=== PATIENT | male | born 1970 | race Hispanic/Latino ===

== ENCOUNTER 2021-10-26 10:30 | Emergency (ER) | payer MEDICAID, SELFPAY ==
[2021-10-26 10:31] VITALS: BP 118/74; PULSE 94; RESP 16; TEMP 35.8; O2SAT 93; BMI 26.6
--- NOTE | 2021-10-26 10:45 | EDS_ITS ---
HPI History of Present Illness Chief Complaint: General Illness Informant: patient Onset/Context/Timing Onset: Yesterday Narrative Narrative: Patient presents requesting COVID test. He states he started feeling ill yesterday including sneezing and congestion. His sister who he lives with tested positive for COVID today. PFSH PFSH Medical History no medical history no medical history Home Medications NK 10/26/21 [History Last Taken Unknown] Allergy/AdvReac Type Severity Reaction Status Date / Time Penicillins [PCN] Allergy Other Verified 10/26/21 10:31 Surgical History no surgical history Social History Smoking Status: Never smoker ROS ROS ED Constitutional Constitutional ED: Denies chills or fever(s) Eyes Eyes: Denies change in vision ENT ENT ED: Reports rhinorrhea and other Details: Congestion ; Denies sore throat Cardiovascular Cardiovascular: Denies chest pain Respiratory/Chest Respiratory/Chest: Reports cough; Denies dyspnea Gastrointestinal Gastrointestinal: Denies abdominal pain, diarrhea, nausea or vomiting Genitourinary Genitourinary ED: Denies dysuria Musculoskeletal Musculoskeletal: Denies back pain Integumentary Denies rash Neurologic Neurologic: Reports headache(s); Denies weakness Allergic/Immunologic Allergic/Immunologic ED: Denies urticaria EXAM Physical Exam Const Vital Signs: 10/26/21 10:31 10/26/21 10:56 Temperature 96.5 F L Temperature Source Temporal Pulse Rate 94 Respiratory Rate 16 Respiratory Effort Normal Non-Labored Respiratory Pattern Normal Blood Pressure 118/74 Blood Pressure Mean 88 Pulse Ox 93 Oxygen Delivery Method Room Air Positive well nourished and well developed General Appearance ED: well developed HEENT Reports normocephalic and head/scalp atraumatic Eyes PERRL and EOMs intact bilaterally Neck supple Chest Wall inspection of chest normal and palpation of chest normal Resp normal respiratory effort and clear to auscultation bilaterally Cardio regular rate and regular rhythm GI normal to inspection, nondistended, normoactive bowel sounds and non-tender Palpation: soft Back/Spine no CVA tenderness Extremity normal to inspection Neuro oriented x3 and no sensory deficits noted Sensorium / Orientation: alert Motor Exam: strength 5/5 throughout Psych mental status grossly normal Skin no rashes or lesions noted MDM MDM MDM Narrative Medical decision making narrative: Rapid COVID test obtained. Lab Data Labs: Rapid COVID: Positive Treatment and Re-Evaluation Comments:: Patient's COVID test is positive. He is currently on day 2 of symptoms. I did discuss monoclonal antibody treatment with him and he is interested in this. Order will be sent. Otherwise he is to continue supportive care. Return instructions are provided. Symptom onset occurred: 10/25/2021 Positive COVID-19 test occurred: 10/26/2021 The FDA has authorized the emergency use of monoclonal antibody treatment (bamlanivimab/etesevimab or casirivimab/imdevimab) for mild to moderate COVID-19 in adults and pediatric patients with positive results of direct SARS?Cov?2 viral testing ages 12 and older, at least 40 kg, who are at high risk for p rogressing to severe COVID-19 and or hospitalization. The significant known and potential risks (allergic reactions, worsening of symptoms after treatment, or side effects from injection including brief pain, bleeding, bruising of the skin, soreness, swelling, possible infection at the infusion site) and benefits (decrease chance of progression to severe COVID-19) of a monoclonal antibody infusion, and the extent to which such potential risks and benefits are unknown. Note that worsening symptoms after treatment may occur but it is unknown whether these symptoms are related to treatment or are due to the progression of COVID-19. Worsening symptoms may include: fever, difficulty breathing, rapid or slow heart rate, tiredness, weakness or confusion. If these symptoms occur, patients are encouraged to seek immediate medical attention. These treatments are still being studied, all possible side effects may not be listed or known at this time. Patients treated with monoclonal antibody infusion should continue to self- isolate and use infection control measures (such as wear mask, isolate, social distance, avoid sharing personal items, clean and disinfect high touch surfaces, and frequent handwashing) according to the CDC guidelines. The fact sheet for patients, parents and caregivers will be provided prior to the administration of the medication. No drugs are approved by the FDA at this time to treat outpatients with mild or moderate symptoms of COVID-19. In addition to IV monoclonal antibodies, there are oral medications that have received authorization from the FDA to treat [id number] COVID-19 in patients at high risk for progression to severe COVID-19. These medications may not be appropriate for all patients and available drug supply may be limited. However, these oral medications may be more effective against the omicron variant. The following information was communicated to the patient or caregiver: Monoclonal antibody infusion for COVID-19 is not an FDA approved drug. The FDA has authorized the emergency use of monoclonal antibody therapy. The patient had the option to refuse or accept treatment with monoclonal antibody therapy. The patient was informed that the number of people treated with monoclonal antibody therapy at this time is small. The potential benefits and the potential risks of monoclonal antibody therapy are not fully known. Potential benefits of monoclonal antibody include a reduced risk of progressing to severe COVID-19 infection. Potential risks or side effects of monoclonal antibody therapy include allergic reactions, side effects from injection including brief pain, bleeding, bruising of the skin, soreness, swelling, possible infection at the infusion site and worsening of symptoms. Due to the changes in the virus that causes COVID-19, some monoclonal antibody treatments may not be effective for all forms of the virus (known as variants). This includes the omicron variant. The patient stated understanding of this information communicated and wished to proceed with monoclonal antibody infusion therapy. Current symptoms include: Shortness of breath, cough (productive versus nonproductive), fever, headache, nausea/vomiting, body aches, chills, general malaise, loss of taste or smell, sneezing, nasal congestion. Discharge Plan Triage Chief Complaint: General Illness ED Provider: Claudine Winkler Dx/Rx/DC Orders Clinical Impression: COVID-19 Instructions: Coronavirus Disease 2019 (COVID-19): Overview, Coronavirus Disease 2019 (COVID-19): Caring for Yourself or Others Prescriptions: No Action NK RF: 0 Stand Alone Forms: ED Work / School Excuse, Monoclonal Antibody Referral Primary Care Provider: Care Physician,No Primary Referrals: Jose Rivera DO [STAFF PHYSICIAN] - 1-2 Weeks Care Physician,No Primary [Primary Care Provider] - Disposition Disposition: Home, Self Care
[2021-10-26 11:37] VITALS: RESP 18; O2SAT 95
== END 2021-10-26 11:37 | disposition home or self-care (01) ==
PROVIDERS: Emergency Provider Emergency Medicine; Visit Provider Emergency Medicine
DX: U07.1 COVID-19 (principal)
CPT/HCPCS: 87426; 99282

== ENCOUNTER 2022-03-22 12:50 | Emergency (ER) | payer BC, MEDICAID, SELFPAY ==
[2022-03-22 12:52] VITALS: BP 110/84; PULSE 98; RESP 17; TEMP 36.8; O2SAT 94; BMI 26.6
--- NOTE | 2022-03-22 13:20 | EDS_ITS ---
HPI <HELADIO Barlow - Last Filed: 03/22/22 13:57> History of Present Illness Chief Complaint: Numb/Ting Narrative Narrative: 51-year-old male with history of Crohn's disease, psychiatric issues presents to the emergency department with right hand numbness and tingling. Patient states that for the last 2 weeks he has had numbness to his thumb second third and fourth digit. 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 He states that he has no specific injury. He does not wake up at night from this. He states it is constantly numb and never goes away. He denies any issues with dexterity. Denies any fevers or chills. PFS <HELADIO Barlow - Last Filed: 03/22/22 13:57> [facility] Medical History (Updated 03/22/22 @ 13:55 by HELADIO Barlow) Anger Anxiety Crohn disease Depression Home Medications cariprazine [Vraylar] 1.5 mg PO DAILY 03/22/22 [History Last Taken Unknown] naproxen [Naprosyn] 500 mg PO BID PRN #20 tab 03/22/22 [Rx Last Taken Unknown] trazodone 100 mg PO QHS 03/22/22 [History Last Taken Unknown] Allergy/AdvReac Type Severity Reaction Status Date / Time Penicillins [PCN] Allergy Other Verified 03/22/22 12:51 Social History Smoking Status: Never smoker ROS <HELADIO Barlow - Last Filed: 03/22/22 13:57> ROS ED ROS Narrative Constitutional: Negative for fever, chills, weight loss, weakness Eyes: Negative for vision loss, vision change, double vision ENT: Negative for any sore throat, ear pain, congestion Cardiovascular: Negative for any chest pain, tightness, palpitations Respiratory: Negative for any cough, sputum production, hemoptysis, dyspnea, dyspnea on exertion, orthopnea Gastrointestinal: Negative for any abdominal pain, nausea, vomiting, diarrhea, constipation, blood in stool, blood in vomit : Negative for any urinary frequency, dysuria, retention, blood in urine Muscle skeletal: Negative for any muscle joint pain, stiffness, myalgias, arthralgias, neck pain, back pain. Positive for right first through fourth digit numbness Neurological: Negative for any headache, syncope, numbness or tingling, dizziness Skin: Negative for any rashes, lumps, itching, abrasions, lacerations Psychiatric: Negative for any depression, anxiety, stress, suicidal ideation, homicidal ideation Hematologic: Negative for any easy bruising, excessive bruising, easy bleeding Allergies: Negative for any eczema, hives, rash EXAM <HELADIO Barlow - Last Filed: 03/22/22 13:57> Physical Exam Narrative Exam Narrative: Vital signs reviewed. HEET: Head normocephalic atraumatic, TMs clear bilaterally. Posterior pharynx is clear, moist mucous membranes. Nares clear bilaterally. Neck: Supple with no lymphadenopathy or tenderness. No signs of meningismus, negative jolt sign. Cardiac: Regular rate and rhythm no murmurs gallops or rubs, equal peripheral pulses bilaterally. Respiratory: Lungs clear to auscultation bilaterally. No chest tenderness. Abdomen: Soft, nontender, nondistended. No abdominal bruit or pulsatile masses. No hepatosplenomegaly Extremities: No peripheral edema, no signs of gross trauma or deformity. Active full range of motion of all extremities. Full range of motion to the right hand. Negative for any neurological or focal deficits. Patient states that the fingers are numb mostly through to the PIP joint Neuro: Cranial nerves II through XII intact, no focal neurological deficits. Skin: Clean dry and intact with no rash, purpura, petechiae, vesicles or pustules. Backs/flank: No CVA tenderness, no midline spinal tenderness, no deformity. Psych: Normal mood and affect. No SI, HI or acute psychosis. Const Vital Signs: 03/22/22 12:52 Temperature 98.2 F Temperature Source Temporal Pulse Rate 98 Respiratory Rate 17 Blood Pressure 110/84 H Blood Pressure Mean 92 Pulse Ox 94 Oxygen Delivery Method Room Air Positive well nourished and well developed General Appearance ED: well developed <Dr. Chiki Croft MD - Last Filed: 03/22/22 14:01> Physical Exam Const Vital Signs: 03/22/22 12:52 Temperature 98.2 F Temperature Source Temporal Pulse Rate 98 Respiratory Rate 17 Blood Pressure 110/84 H Blood Pressure Mean 92 Pulse Ox 94 Oxygen Delivery Method Room Air MDM <HELADIO Barlow - Last Filed: 03/22/22 13:57> [facility] Narrative Medical decision making narrative: Patient appears well, patient appears nontoxic, vital signs are stable. Patient presents to the emergency department with complaints of right hand tingling, specifically in the first through fourth digits. Patient does have a positive phallen sign. Patient's physical exam is consistent with carpal tunnel syndrome. Patient placed in a cock-up wrist splint, given anti-inflammatories. Cock-up wrist splint to be worn at night. Patient will follow-up with orthopedics. He will take anti-inflammatories. He is stable for discharge instructed return for worsening symptoms <Dr. Chiki Croft MD - Last Filed: 03/22/22 14:01> [facility] Narrative Medical decision making narrative: I have personally performed a face to face assessment of the patient and have reviewed the MORGAN Note. I performed a substantive portion of the visit including all aspects of the following. My jaimes findings include: History is patient presents with tingling in his right index long and radial side of his ring finger. This has been going on for 2 weeks. 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 He believes it is due to his lifestyle when he lived in [place]. He has no other complaints. Exam is axillary, median, radial and ulnar function intact. Patient has a negative Tinel's sign. Patient has a positive Phalen sign. Medical Decision Making patient's history and physical is consistent with carpal tunnel syndrome. Will treat with cock-up splint to be worn at night and NSAID since with no contraindication. Referred to orthopedics. Other additions or changes: None Discharge Plan Triage Chief Complaint: Numb/Ting ED Midlevel Provider: Ankur Muhammad ED Provider: Chiki Croft Dx/Rx/DC Orders Clinical Impression: Acute carpal tunnel syndrome Instructions: Carpal Tunnel Syndrome Prescriptions: New naproxen [Naprosyn] 500 mg tablet 500 mg PO BID PRN (Reason: pain) Qty: 20 RF: 0 No Action trazodone 100 mg tablet 100 mg PO QHS RF: 0 Vraylar 1.5 mg capsule 1.5 mg PO DAILY RF: 0 Primary Care Provider: Care Physician,No Primary Referrals: Zeeshan Kearns MD [STAFF PHYSICIAN] - Care Physician,No Primary [Primary Care Provider] - Activity Restrictions/Additional Instructions: You will wear your cock up wrist splint at nighttime. Use anti-inflammatories as needed. Print Language: Korean Disposition Disposition: Home, Self Care
== END 2022-03-22 14:15 | disposition home or self-care (01) ==
PROVIDERS: Emergency Provider Emergency Medicine; Visit Provider Emergency Medicine
DX: G56.01 Carpal tunnel syndrome, right upper limb (principal)
CPT/HCPCS: 99283

== ENCOUNTER → 2022-05-05 | Outpatient (CLI) | payer BC, MEDICAID, SELFPAY ==
[2022-05-05 18:22] LABS: Color, Urine Yellow (Yellow); Glucose, Dipstick Normal (Normal); Ketone-Dipstick Negative (Negative); Leukocyte Esterase-Dipstick Negative /ul (Negative); Nitrite-Dipstick Negative (Negative); Occult Blood-Urine Negative /ul (Negative); Protein-Dipstick Negative (Negative); Urine Bilirubin Dipstick Negative (Negative); Urine Clarity Clear (Clear); Urine Urobilinogen Normal (Normal)
[2022-05-05 19:03] LABS: Anion Gap 5 (5-15); BUN 13 mg/dL (7-18); Calcium,Total 9.6 mg/dL (8.5-10.1); Chloride 106 mmol/L (98-107); Cholesterol 193 mg/dL (200); Creatinine, Serum 0.81 mg/dL (0.70-1.30); EST Glomerular Filtration Rate 106 mL/min (>60); Est Glom Filt Rate - Afr Amer 129 mL/min (>60); Glucose 94 mg/dL (74-106); High Density Lipoprotein 46 mg/dL; PSA,Total - Annual Screen 0.32 ng/mL (0.00-4.00); Potassium 3.9 mmol/L (3.5-5.1); Sodium Level 137 mmol/L (136-145); Triglycerides 182 mg/dL; Very Low Density Lipoprotein 36 mg/dL (5-40)
[2022-05-05 19:41] LABS: Chlamydia Trachomatis by PCR Negative (Negative); Neisserai gonorrhoeae by PCR Negative (Negative); Probe Check PASS; Sample Adequacy Control PASS; Specimen Processing Control PASS
[2022-05-06 09:16] LABS: HIV - WCH Non-Reactive (Nonreactive); Hepatitis B Surface Antibody Non-Reactive; Hepatitis C Antibody Non-Reactive (Nonreactive); Syphilis Antibodies Non-reactive
[2022-05-08 16:20] LABS: Hepatitis B Core AB IgM Negative (Negative)
== END | disposition home or self-care (01) ==
LOC: MFPLAB 16:57
PROVIDERS: PCP Family Medicine; Referring Provider Family Medicine; Visit Provider Family Medicine
DX: Z00.00 Encounter for general adult medical examination without abnormal findings (principal); Z12.5 Encounter for screening for malignant neoplasm of prostate; Z13.1 Encounter for screening for diabetes mellitus; Z20.2 Contact with and (suspected) exposure to infections with a predominantly sexual mode of transmission; Z13.220 Encounter for screening for lipoid disorders
CPT/HCPCS: 84153; 36415; 80048; 80061; 81002; 86703; 86705; 86706; 86780; 86803; 87491; 87591; G0103

== ENCOUNTER 2022-07-08 05:35 | Day surgery (SDC) | payer BC, MEDICAID, SELFPAY ==
[2022-07-08] VITALS (8 sets, daily range): BP systolic 114–135; BP diastolic 63–91; PULSE 59–79; RESP 14–16; TEMP 36.1–36.6; O2SAT 92–100; BMI 28.6
--- NOTE | 2022-07-08 07:07 | PCM.HP.STD ---
HPI - General HPI Narrative LASHONDA RAMOS, is a 52 M who presents for right ECTR, possible open. No changes to healh. Risks and benefits again discussed. Marked right wrist volar side. No further questions. On medication for chron's may increase risks including infection. Wished to proceed. Had coffee with cream, will delay surgery per Dr. Alcazar until 1030am. Patient informed. MR#: [id number] Acct: [id number] Name:LASHONDA MAY Jr. Rep #: [id number] : 1970 ? ? Provider: Dr. Ernst Ba MD Age/Sex:? 52/M ? ? [facility] Status: Signed Intake Vital Signs ? 06/11/2209:31 Height 5 ft 7 in Weight: 180 lb BMI 28.1 Intake Visit Reasons:?Bilat wrist Investigations Consultant Required: No Accompanied by: Self Is patient in pain?: Yes (bilateral wrist) Pain scale (1-10): 10 Allergies Penicillins [PCN] Allergy (Verified 06/11/22 09:32) Other Medications cariprazine 1.5 mg capsule (Vraylar) 1.5 mg PO DAILY 03/22/22 [History Confirmed 06/11/22] naproxen 500 mg tablet (Naprosyn) 500 mg PO BID PRN pain #20 tabs 03/22/22 [Rx Confirmed 06/11/22] trazodone 100 mg tablet 100 mg PO QHS 03/22/22 [History Confirmed 06/11/22] meloxicam 15 mg tablet 15 mg PO DAILY 06/11/22 [History Confirmed 06/11/22] omeprazole 20 mg tablet,delayed release 20 mg PO DAILY 06/11/22 [History Confirmed 06/11/22] PFSH Medical History?(Updated 06/11/22 @ 09:47 by Ernst Ba MD) Anger Anxiety Crohn disease Depression Right carpal tunnel syndrome Social History? Smoking Status:? Never smoker HPI Bilat wrist Details: Parts of this documentation were recorded by a scribe, this documentation accurately reflects the service provided and the decisions made by me, Dr. Ernst Ba MD 06/11/22 0930. LASHONDA RAMOS is a 52 year old M here today for bilateral wrist mostly on the right. Thumb index and middle finger goes numb, worsening over 2 months, did not have it before this. 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 Feels clumsy, weak. RHD. 5th digit feels normal. 6 weeks of night splinting not working. No diabetes. Sees a psychiatrist here in [place] for bipolar he blieves. HE did have a cortisone injection a little over a month ago Dr. Everett? from [place]? Numbed it for a bit but still the same. PER PA referral...LASHONDA RAMOS is a 52 year old M here today for bilateral hand numbness. Right is worse than left. He states that this started about 1 month ago. He has numbness and tingling into his thumb, index, middle and ring finger of his right hand, and he has numbness into his thumb and index of his left hand. He denies any known injury. 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 Patient did a lot of fighting and boxing and hitting with his right hand. He denies any specific prior injuries or surgeries to bilateral upper extremities. Patient states that if he grabs something too hard, he has pain. Patient had being wearing braces at night and taking Tylenol prn. He also has been using topical ointment which is not helpful. He denies any prior injections. Denies any neck pain. Ortho Exam General General: Yes no acute distress Neurologic: Yes alert and Yes oriented x3 Psychologic: Yes reasonable and appropriate Right Wrist/Hand Skin/Wound: Yes CDI, No Swelling, No Ecchymosis, Yes nail intact and Yes capillary refill normal Contralateral Normal: Yes A1 miryam trigger: No Right Wrist: Yes ROM-Extension 0-60, ROM-Flexion 0-80, ROM-Pronation 0-80, ROM-Supination 0-90, Durken's Test, Tinel's and Phalen's; No TTP Fracture site, Snuffbox tenderness, Sylvia's Test, Tender to palpate triangular fibrocartilage complex, Distal radioulnar joint, tender to palpate 1st dorsal compartment, Thenar Atrophy or Hypothenar Atrophy Motor: EPL: 5, FDP-2: 5, 1st Dorsal Interosseous: 5 and APB: 5 Sensation: Radial: I, Ulnar: I and Median: D Left Wrist/Hand Skin/Wound: No Swelling and No Ecchymosis Supplemental Info Nerve conduction studies from 05/25/2022 the findings 1.? The right median sensory latency at the wrist is prolonged.? The right median motor latency is in the upper normal range. 2.? Normal nerve conduction studies left upper extremity. 3.? Normal monopolar needle examination from a broad sampling of bilateral upper extremity muscles. Impression: 1.? Right median mononeuropathy at the wrist.? This is consistent with a diagnosis of carpal tunnel syndrome mild in degree. 2.? Normal EMG/NCS left upper extremity. 3.? No cervical radicular abnormalities are noted.? This is from Dr. Rasta Chirinos Coding Level of Care Code Off vis,new,level 3 Diagnoses Right carpal tunnel syndrome? G56.01 Assessment and Plan Assessment and Plan (1) Right carpal tunnel syndrome: ?Status:?Acute ?Plan: 52-year-old man with clinical subjective and nerve conduction evidence of right-sided carpal tunnel syndrome.? He has tried conservative management extensively including anti-inflammatories nighttime splinting and cortisone injection and other forms of treatment.? We discussed the nonoperative and operative means of treating this.? He would like to go ahead with surgical release.? This can be done endoscopically or open.? I discussed the pros and cons risks and benefits of each method of treatment she would like to go ahead with a right endoscopic carpal tunnel release possible open.? Typical return to work including heavy lifting and gripping would be 6 weeks time. Pros and cons risks and benefits were discussed with the patient including but not limited to infection, pain, stiffness, bleeding, damage to surrounding structures, neurovascular injury, recurrence or retear, failure or wear of hardware or fixation, instability, fracture, deep vein thrombosis and pulmonary embolism, anesthetic risks, patient dissatisfaction, need for further surgery and other risks.? Patient understood and wished to proceed with surgery, and signed the informed consent documentation. [facility] Medical History (Updated 07/01/22 @ 15:36 by Daja Bird) Anger Anxiety Arthritis Crohn disease Depression High cholesterol History of steroid therapy Injury of back Non-smoker Right carpal tunnel syndrome Wears glasses Home Medications cariprazine 1.5 mg capsule (Vraylar) 3 mg PO DAILY 03/22/22 [History Last Taken Unknown] naproxen 500 mg tablet (Naprosyn) 500 mg PO BID PRN pain #20 tabs 03/22/22 [Rx Last Taken Unknown] trazodone 100 mg tablet 100 mg PO QHS 03/22/22 [History Last Taken Unknown] omeprazole 20 mg tablet,delayed release 20 mg PO DAILY 06/11/22 [History Last Taken Unknown] cholecalciferol (vitamin D3) 25 mcg (1,000 unit) capsule (Vitamin D3) 25 mcg PO DAILY 07/01/22 [History Last Taken Unknown] multivitamin 1 tab PO DAILY 07/01/22 [History Last Taken Unknown] zinc 50 mg tablet 50 mg PO DAILY 07/01/22 [History Last Taken Unknown] Allergy/AdvReac Type Severity Reaction Status Date / Time Penicillins [PCN] Allergy Other Verified 07/01/22 15:28 Social History Smoking Status: Never smoker Vital Signs Vital Signs Vital Signs: 07/08/22 06:32 07/08/22 06:34 Temperature 97.8 F Temperature Source Temporal Pulse Rate 70 Respiratory Rate 16 Respiratory Pattern Normal Blood Pressure 114/63 Blood Pressure Mean 80 Blood Pressure Source Monitor Blood Pressure Position Semi-Fowlers Blood Pressure Location Left Arm Pulse Ox 94 Oxygen Delivery Method Room Air Weight Weight: 182 lb 15.739 oz Body Mass Index (BMI) 28.6
[2022-07-08] MEDS: Lactated Ringers 1,000 ML 15 ML IV (11:25)
[2022-07-08] MEDS: Cefazolin 2 GM in 0.9% Normal Saline 100 ML IV (12:01)
--- NOTE | 2022-07-08 12:55 | OP.PCM_ITS ---
Problems Associated Problem List Diagnoses (1) Carpal tunnel syndrome on both sides: Report of Operation Date of Procedure: 07/08/22 Pre-Operative Diagnosis: Right carpal tunnel syndrome Post-Operative Diagnosis: Right carpal tunnel syndrome Surgery/Procedure Performed:: Right ECTR endoscopic carpal tunnel release Surgeon: Ernst Ba Type of Anesthesia: General Anesthesiologist: Albaro Alcazar Estimated Blood Loss (mL): 10 Description of Procedure: Patient was brought to the operating room theater. The patient was administered 2 g of IV Ancef prior to the start of the procedure. Placed supine on the operating room table. General anesthesia induced. SCDs on the legs. Tourniquet applied to the operative extremity, appropriately padded. Arm table used. Operative extremity prepped and draped in the usual sterile fashion with chlorhexidine-based prep solution allowing over 3 minutes drying time prior to draping. Preoperative timeout performed to confirm the site patient and the surgery. I began by elevating the limb and inflating the tourniquet to 250 mmHg. Used the [employer]the[employer] center line endoscopic carpal tunnel kit / technique. I made a transverse 1 cm incision in line with the proximal transverse wrist crease. This was in line with the fourth digit. I carried the dissection down through skin and subcutaneous tissue achieved meticulous hemostasis. Just ulnar to palmaris tendon. I incised the antebrachial fascia. I passed sequential dilators into the carpal tunnel along the radial border of the Guyon's canal aiming for the fourth digit with the hand in extension. I used a synovial elevator to identify the transverse fibers of the transverse carpal tunnel ligament. Once I had identified the full proximal and distal extent of the ligament I fully released the ligament under direct visualization by deploying the blade and slowly withdrawing the scope made sequential passes until I no longer felt tension as well as the entire extent of the ligament was released under direct visualization. Arthroscope light was more visible through the skin. Wound thoroughly irrigated. Tourniquet let down prior to end of the case and meticulous hemostasis achieved. Thorough irrigation. Placed 5 cc in the carpal tunnel of quarter percent Marcaine. Incision closed with 3-0 Monocryl. Steri- Strips were applied after the skin was cleaned and dried. Xeroform gauze nd To wrap was then applied. Patient woken up from general anesthetic transferred off the operating room table and taken to postanesthetic care unit in stable condition. All sponge needle instrument counts were correct no complications. Plan for the patient to be discharged home according to day surgery criteria when they are comfortable. Follow-up in the office in 2 weeks time. Complications none Admit VTE Documentation VTE Present on Admission: No VTE Mechan Device Prophylaxis: SCD's Reason prophylaxis not ordered:: Treatment Not Indicated Procedures Musculoskeletal 20xxx-29xxx: Other Procedure See Report
--- NOTE | 2022-07-08 13:03 | DCINST_ITS ---
Discharge Instructions Diet Discharge Diet: No restrictions Activity Discharge Activity: May Not Shower May resume sexual activity in: No Restrictions Keep extremity elevated above heart level: Right Arm Additional Activity Instructions:: gentle ROM of fingers and wrist, no heavy lifting or gripping 2 weeks Dressing / Incision Call your doctor if your incision/area has: Continuous Slow Oozing, Sudden Increased Bleeding, Increased Pain/ Swelling, Increased Redness, Foul Smelling Discharge and Swelling at the incision site Change Dressing in: 2 days Cleanse incision/area with: Do not get Incision Wet Follow Up Care Please Follow Up With: Ernst Ba MD When: 2 weeks Test Results: Test results from this visit will be discussed in further detail at your follow- up appointment, if applicable. Discharge Plan Admission Attending Provider: Ernst Ba Primary Care Provider: Luis Goyal Instructions Patient Instructions: Carpal Tunnel Release Surgery Discharge Orders/Prescriptions Prescriptions: No Action omeprazole 20 mg tablet,delayed release (DR/EC) 20 mg PO DAILY Label Comments: TAKE 1 TABLET BY MOUTH EVERY DAY trazodone 100 mg tablet 100 mg PO QHS Label Comments: TAKE 1 TABLET BY ORAL ROUTE PER AT BEDTIME NEEDED FOR SLEEP Vraylar 1.5 mg capsule 3 mg PO DAILY Label Comments: TAKE 1 CAPSULE BY MOUTH EVERY DAY naproxen [Naprosyn] 500 mg tablet 500 mg PO BID PRN (Reason: pain) Qty: 20 0RF multivitamin Tablet 1 tab PO DAILY zinc 50 mg Tablet 50 mg PO DAILY cholecalciferol (vitamin D3) [Vitamin D3] 25 mcg (1,000 unit) Capsule 25 mcg PO DAILY Referrals / Follow Up: Luis Goyal MD [Primary Care Provider] - Disposition Disposition (needs filled in before D/C Order can be placed): Home, Self Care
--- NOTE | 2022-07-08 13:05 | DCINST_ITS ---
Discharge Instructions Diet Discharge Diet: No restrictions Activity May resume sexual activity in: No Restrictions Ice area for (Minutes): 10 Lifting Restrictions: gentle ROM of fingers and wrist, no heavy lifting or gripping 2 weeks Keep extremity elevated above heart level: Right Arm Additional Activity Instructions:: gentle ROM of fingers and wrist, no heavy lifting or gripping 2 weeks Dressing / Incision Call your doctor if your incision/area has: Continuous Slow Oozing, Sudden Increased Bleeding, Increased Pain/ Swelling, Increased Redness, Foul Smelling Discharge and Swelling at the incision site Change Dressing in: 3 days Cleanse incision/area with: Do not get Incision Wet Follow Up Care Please Follow Up With: Ernst Ba MD When: 2 weeks Test Results: Test results from this visit will be discussed in further detail at your follow- up appointment, if applicable. Discharge Plan Admission Attending Provider: Ernst Ba Primary Care Provider: Luis Goyal Instructions Patient Instructions: Carpal Tunnel Release Surgery Discharge Orders/Prescriptions Prescriptions: No Action omeprazole 20 mg tablet,delayed release (DR/EC) 20 mg PO DAILY Label Comments: TAKE 1 TABLET BY MOUTH EVERY DAY trazodone 100 mg tablet 100 mg PO QHS Label Comments: TAKE 1 TABLET BY ORAL ROUTE PER AT BEDTIME NEEDED FOR SLEEP Vraylar 1.5 mg capsule 3 mg PO DAILY Label Comments: TAKE 1 CAPSULE BY MOUTH EVERY DAY naproxen [Naprosyn] 500 mg tablet 500 mg PO BID PRN (Reason: pain) Qty: 20 0RF multivitamin Tablet 1 tab PO DAILY zinc 50 mg Tablet 50 mg PO DAILY cholecalciferol (vitamin D3) [Vitamin D3] 25 mcg (1,000 unit) Capsule 25 mcg PO DAILY Referrals / Follow Up: Luis Goyal MD [Primary Care Provider] - Disposition Disposition (needs filled in before D/C Order can be placed): Home, Self Care
--- NOTE | 2022-07-08 13:44 | OP.PCM_ITS ---
Procedures Musculoskeletal 20xxx-29xxx: Other Procedure See Report
--- NOTE | 2022-07-08 13:44 | PCM.OPRPT ---
Procedures Musculoskeletal 20xxx-29xxx: Other Procedure See Report
== END 2022-07-08 14:41 | disposition home or self-care (01) ==
LOC: SDC 05:36 → AC 05:37
PROVIDERS: PCP Family Medicine; Referring Provider Orthopaedic Surgery Sports Medicine; Visit Provider Orthopaedic Surgery Sports Medicine
PROC: (CPT 29848; principal; 2022-07-08 07:15)
DX: G56.01 Carpal tunnel syndrome, right upper limb (principal); K50.90 Crohn's disease, unspecified, without complications; F32.A Depression, unspecified; Z79.899 Other long term (current) drug therapy
CPT/HCPCS: 29848; 01810; J7120

== ENCOUNTER → 2022-08-31 | Outpatient (CLI) | payer BC, MEDICAID, SELFPAY ==
--- NOTE | 2022-08-31 11:23 | RAD_ITS ---
STUDY: X-RAY - LUMBAR SPINE REASON FOR EXAM: Male, 52 years old. Back pain. TECHNIQUE: 4 view(s) of the lumbar spine were obtained. COMPARISON: None FINDINGS: Normal lumbar lordosis. There is no substantial scoliosis. There is a normal alignment of the vertebrae. Diffuse mild facet sclerosis. Diffuse mild intervertebral disc space narrowing with osteophyte formation most marked at L2-3 and to the greatest degree, L3-4. Vascular calcification. Postsurgical changes in the upper pelvis.. RAD/L/S Spine Min 4 Views IMPRESSION: Mild diffuse lumbosacral spondylosis. No acute abnormality, or evidence of erosive changes/fusion. Electronically Signed: Norris Ashton, at 11:47 EST ,
== END | disposition home or self-care (01) ==
PROVIDERS: PCP Family Medicine; Referring Provider Family Medicine; Visit Provider Family Medicine
DX: M54.9 Dorsalgia, unspecified (principal)
CPT/HCPCS: 72110

== ENCOUNTER → 2022-09-16 | Outpatient (CLI) | payer BC, MEDICAID, SELFPAY ==
[2022-09-16 12:16] LABS: Erythrocyte Sedimentation Rate 34 mm/hr (0-20)
[2022-09-16 12:20] LABS: Absolute Lymphocyte Count 1.62 X10^3/uL (0.83-4.51); Absolute Neutrophil Count 4.6 X10^3/uL (2.0-7.7); Basophil# 0.06 X10^3/uL; Basophil% 0.8 % (0-1); Eosinophils% 2.7 % (0-5); Hemoglobin 14.6 g/dL (13.0-16.5); Lymphocyte # 1.62 X10^3/ul (0.83-4.51); Lymphocyte % 21.8 % (19-41); Mean Corp Hgb Conc 32.4 g/dL (32-36); Mean Corpuscular Hgb 29.6 pg (27.0-32.0); Mean Corpuscular Volume 91.1 fL (80-94); Mean Platelet Vol. 10.4 fl (6.2-12.0); Monocyte% 10.8 % (0-10); NRBC Flagged by Analyzer 0 % (0-5); Neutrophil # 4.58 X10^3/uL (2.7-7.7); Neutrophil % 61.5 % (47-70); Platelet Count 396 K/mm3 (150-450); RBC Distribution Width CV 13.1 % (11.6-14.6); RBC Distribution Width SD 43.8 fl (35.1-43.9); Red Blood Count 4.94 M/mm3 (4.6-6.2); White Blood Count 7.4 K/mm3 (4.4-11.0)
== END | disposition home or self-care (01) ==
LOC: MTLAB 11:10
PROVIDERS: PCP Family Medicine; Referring Provider Orthopaedic Surgery Sports Medicine; Visit Provider Orthopaedic Surgery Sports Medicine
DX: G56.03 Carpal tunnel syndrome, bilateral upper limbs (principal)
CPT/HCPCS: 36415; 85025; 85652; 86140

== ENCOUNTER 2022-11-02 16:51 | Outpatient (RCR) | payer BC, MEDICAID, SELFPAY | END 2022-11-02 19:00 | disposition home or self-care (01) | LOC: OT 16:51 | PROVIDERS: PCP Family Medicine; Referring Provider Orthopaedic Surgery Sports Medicine; Visit Provider Orthopaedic Surgery Sports Medicine | DX: Z00.00 Encounter for general adult medical examination without abnormal findings (principal) ==

== ENCOUNTER → 2022-12-02 | Outpatient (CLI) | payer BC, MEDICAID, SELFPAY ==
--- NOTE | 2022-12-02 15:32 | NEURO ---
NCS and/or EMG Patient Report Ordering Doctor: Ernst Ba DATE OF SERVICE: 12/02/22 Emigdio presents for electrodiagnostic testing of the right upper limb. He underwent right carpal tunnel surgery in June 2022. He now has numbness in the third and fourth digits of the right hand. Electrodiagnostic findings: Right median motor nerve demonstrates normal distal latency, amplitude and conduction velocity. Normal right ulnar motor response, including conduction across the elbow. Normal right median and ulnar F waves. Sensory responses are within normal limits. On needle EMG, all muscles tested in the right upper limb showed no evidence of denervation with normal motor unit action potentials. Electrodiagnostic impression: This is a normal electrodiagnostic study in the right upper limb. There is no electrodiagnostic evidence for peripheral neuropathy, including carpal tunnel or cubital tunnel syndrome. There is no evidence for recurrent carpal tunnel syndrome. There is no electrodiagnostic evidence for cervical radiculopathy.
== END | disposition home or self-care (01) ==
LOC: PSN 15:03
PROVIDERS: PCP Family Medicine; Referring Provider Orthopaedic Surgery Sports Medicine; Visit Provider Orthopaedic Surgery Sports Medicine
DX: G56.01 Carpal tunnel syndrome, right upper limb (principal)
CPT/HCPCS: 95886; 95910

== ENCOUNTER 2022-12-17 05:52 | Day surgery (SDC) | payer BC, MEDICAID, SELFPAY ==
--- NOTE | 2022-12-11 09:17 | EKG12_ITS ---
Test Reason : PRE OP Blood Pressure : / mmHG Vent. Rate : 068 BPM Atrial Rate : 068 BPM P-R Int : 146 ms QRS Dur : 082 ms QT Int : 372 ms P-R-T Axes : 038 003 034 degrees QTc Int : 395 ms Normal sinus rhythm Normal ECG Confirmed by DEANDRA CLAUDIO, NIVIA ([id number]), scientific publications editor HETAL BONE ([id number]) on 12/14/2022 10:59:05 AM Referred By: Yeny Hairston Confirmed By:NIVIA LIRIANO MD
[2022-12-17 06:19] VITALS: BP 124/68; PULSE 84; RESP 18; TEMP 36.8; O2SAT 98; BMI 27.2
[2022-12-17] MEDS: Lactated Ringers 1,000 ML 15 ML IV (06:30)
--- NOTE | 2022-12-17 07:13 | HP.PCM.SX_ITS ---
HPI - General General Date of Admission: 12/17/22 HPI Narrative LASHONDA RAMOS, is a 52 M who presents Office visit 11/13/22 HPI: 52 y/o M presents due to incisional hernia at umbilicus.? Pt had ex lap about 10 years ago at [facility] with small bowel resection due to inflammation ?crohn's due to pt. Pt currently not on any medication for crohn's.? Pt states he was in residential for about 12 years including time around the surgery and he did go see a doctor regularly but he is unable to tell me exactly what type of doctor he saw.? Pt states he noticed fairly soon after his surgery this bulge at umbilicus, pt has mild discomfort at the bulge, denies N/V [facility] Medical History (Updated 11/13/22 @ 23:[address] Yeny Hairston MD) Anger Anxiety Arthritis Bipolar 1 disorder Crohn disease Depression Diastasis recti High cholesterol History of steroid therapy Injury of back Non-smoker Right carpal tunnel syndrome Schizophrenia Wears glasses Home Medications omeprazole 20 mg tablet,delayed release 20 mg PO PRN PRN GERD 06/11/22 [History Last Taken Unknown] cholecalciferol (vitamin D3) 25 mcg (1,000 unit) capsule (Vitamin D3) 25 mcg PO DAILY 07/01/22 [History Last Taken 12/16/22 06:00] multivitamin 1 tab PO DAILY 07/01/22 [History Last Taken 12/16/22 06:00] acetaminophen 325 mg capsule (Tylenol) 325 mg PO ONCE PRN Pain 08/11/22 [History Last Taken 12/16/22 06:00] meloxicam 7.5 mg tablet 15 mg PO DAILY post op discomfort 11/13/22 [History Last Taken Unknown] quetiapine 25 mg tablet 25 mg PO QHS 11/13/22 [History Last Taken Unknown] Allergy/AdvReac Type Severity Reaction Status Date / Time Penicillins [PCN] Allergy Other Verified 12/17/22 06:15 Family History Mother Asthma Cancer Father Hypertension Ulcer Brother Diabetes Surgical History (Updated 12/10/22 @ 13:23 by Daja Bird) History of carpal tunnel release (~2021) History of carpal tunnel surgery of right wrist History of colonoscopy (~2015) History of colonoscopy (~2012) History of resection of small bowel Social History Smoking Status: Never smoker Vital Signs Vital Signs Vital Signs: 12/17/22 06:18 12/17/22 06:19 Temperature 98.2 F Temperature Source Temporal Pulse Rate 84 Respiratory Rate 18 Respiratory Pattern Normal Blood Pressure 124/68 H Blood Pressure Mean 86 Blood Pressure Source Monitor Blood Pressure Position Supine Blood Pressure Location Left Arm Pulse Ox 98 Oxygen Delivery Method Room Air Weight Weight: 179 lb Body Mass Index (BMI) 27.2 Physical Exam Const alert, oriented x3 and no apparent distress HEENT normocephalic and head/scalp atraumatic Resp normal respiratory effort Cardio regular rate GI soft to palpation and non-tender; Negative for non-distended GI Narrative: Incisional hernia at umbilicus, easily reducible Palpation: Negative for guarding Extremity no clubbing, cyanosis or edema Neuro CN's II-XII intact bilaterally Psych mental status grossly normal Assessment & Plan Assessment/Plan (1) Incisional hernia: (2) Diastasis recti: PLAN: Plan Plan to do an incisional hernia repair with mesh. Reviewed the procedure with the patient including the risks, including but not limited to infection, bleeding, paresthesia, injury to small bowel and recurrence. All questions were answered. 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 Yeny Hairston M.D. Pager: [phone] [facility] [address] [place] [address], [address] [place] [address] Office: [phone]
[2022-12-17] MEDS: Clindamycin 900 MG/50 ML BAG 75 MG IV (07:27)
[2022-12-17] MEDS: Bupiv/Epi 0.25% 30 ML Vial (08:10)
--- NOTE | 2022-12-17 08:11 | PCM.OPRPT ---
Report of Operation Date of Procedure: 12/17/22 Pre-Operative Diagnosis: Incisional hernia Post-Operative Diagnosis: Same Surgery/Procedure Performed:: Incisional hernia repair with mesh Surgeon: Yeny Hairston global marketing intern: Sang Lutz Type of Anesthesia: General/Supplemental Anesthesiologist: Otf Stapleton Special Medications: Clindamycin 900 mg IV x1 Estimated Blood Loss (mL): < 10 CC Fluids Replaced: Per anesthesia Description of Procedure: Patient was brought into the room placed supine on the operating table. Correct patient, procedure, site, positioning, special, was verified prior to procedure. General anesthesia was induced. The abdomen was prepped draped in usual sterile fashion. A curvilinear incision was made below the umbilicus with a 15 blade scalpel. This was deepened with electrocautery. A hemostat was used to go around the stalk of the umbilicus and Metzenbaum scissors was used to carefully divide the hernia sac from the skin of the umbilicus. The fascia around the hernia defect was cleared and the hernia defect measured 1.5 x 1.5 cm, omentum was reduced back into the abdomen. Ventralex ST hernia patch small was chosen and secured to the fascia with 0 Vicryl Prolene laterally with the tails. Additional [id number] Prolene sutures used to close the hernia defect as well as secured the skin of the umbilicus. The wound was irrigated with saline. Hemostasis was assured. The incision was closed with 3-0 Vicryl subdermal interrupted sutures and the skin was closed with interrupted 4-0 Monocryl sutures. Steri-Strips and Tegaderm and OpSite were placed over the incision once sterile cotton balls were placed in the umbilicus. Patient was extubated. Patient tolerated procedure well and was taken to the postanesthesia care unit in stable condition. Grafts/Implants Used: Ventralex ST hernia patch small lot [id number] ref [id number] Complications None
--- NOTE | 2022-12-17 08:15 | DCINST_ITS ---
Discharge Instructions Diet Discharge Diet: Light diet - advance as tolerated Activity May shower in (days): 5 (Keep umbilical dressing clean dry and intact for 5 days. Okay to tape off with a Ziploc bag to shower. Or lower shower and upper sponge bath.) Lifting Restrictions: no lifting >20 lbs x 2 wks, no strenuous exercise for 4 wks Additional Activity Instructions:: - Dressing / Incision Call your doctor if your incision/area has: Continuous Slow Oozing, Sudden Increased Bleeding, Increased Pain/ Swelling, Increased Redness, Foul Smelling Discharge and Swelling at the incision site Call your doctor if you observe: Fever of 101 or Higher Remove Dressing in: 5 days (After 5 days okay to remove surgical dressing. Place cotton ball or rolled up gauze in bellybutton and retape daily for 2 more days.) Cleanse incision/area with: Do not get Incision Wet (for 5 days) Additional Dressing/Incision Instructions:: Steri-Strips will fall off in 7 to 10 days, if they do not fall off okay to remove after 10 days. Follow Up Care Please Follow Up With: Yeny Hairston MD When: Call the office for a follow-up appointment 2 weeks; after 5 PM and on the weekends call [phone] with any concerns. Test Results: Test results from this visit will be discussed in further detail at your follow- up appointment, if applicable. Discharge Plan Admission Attending Provider: Yeny Hairston Primary Care Provider: Luis Goyal Discharge Orders/Prescriptions Prescriptions: New oxycodone-acetaminophen 5-325 mg tablet 1 - 2 tab PO Q6H PRN (Reason: pain) 3 Days Qty: 14 0RF Continued omeprazole 20 mg tablet,delayed release (DR/EC) 20 mg PO PRN PRN (Reason: GERD) Label Comments: TAKE 1 TABLET BY MOUTH EVERY DAY acetaminophen [Tylenol] 325 mg capsule 325 mg PO ONCE PRN (Reason: Pain) meloxicam 7.5 mg tablet 15 mg PO DAILY quetiapine 25 mg tablet 25 mg PO QHS Label Comments: take 1 or 2 tablets by oral route at bedtime. multivitamin Tablet 1 tab PO DAILY cholecalciferol (vitamin D3) [Vitamin D3] 25 mcg (1,000 unit) Capsule 25 mcg PO DAILY Referrals / Follow Up: Luis Goyal MD [Primary Care Provider] - Disposition Disposition (needs filled in before D/C Order can be placed): Home, Self Care
[2022-12-17 08:29] VITALS: BP 122/75; BP 124/68; PULSE 98; RESP 16; TEMP 36.4; O2SAT 90
[2022-12-17 08:45] VITALS: BP 113/72; BP 124/68; PULSE 84; RESP 18; O2SAT 95
[2022-12-17 09:00] VITALS: BP 118/71; BP 124/68; PULSE 87; RESP 18; TEMP 36.6; O2SAT 96
[2022-12-17 09:23] VITALS: BP 124/68
[2022-12-17 10:17] VITALS: BP 116/76; BP 124/68; PULSE 77; RESP 16; TEMP 36.2; O2SAT 96
== END 2022-12-17 10:20 | disposition home or self-care (01) ==
LOC: SDC 05:52 → AC 05:52
PROVIDERS: PCP Family Medicine; Referring Provider Surgery; Visit Provider Surgery
PROC: (CPT 49593; principal; 2022-12-17 07:15)
DX: K43.2 Incisional hernia without obstruction or gangrene (principal); K50.90 Crohn's disease, unspecified, without complications; M62.08 Separation of muscle (nontraumatic), other site; Z79.899 Other long term (current) drug therapy
CPT/HCPCS: 49593; 00832; 93005; J7120; C1781; J2405

== ENCOUNTER 2023-07-05 03:46 | Emergency (ER) | payer BC, SELFPAY ==
[2023-07-05 03:47] VITALS: BP 155/71; PULSE 77; RESP 18; TEMP 36.4; O2SAT 99; BMI 27.1
--- NOTE | 2023-07-05 03:56 | CT_ITS ---
EXAM: CT abdomen and pelvis with contrast. HISTORY: diffuse pain, n/v/d, crohns TECHNIQUE: CT Abdomen And Pelvis W/ Contrast Injection. A radiation dose optimization technique was used for this scan. COMPARISON: None. LIMITATIONS: None. LOWER CHEST: No airspace disease in the lung bases. LIVER: Fatty infiltration. GALLBLADDER: Few possible small stones or sludge in the gallbladder fundus. No inflammatory change. BILE DUCTS: Normal. PANCREAS: Normal. SPLEEN: Normal. ADRENAL GLANDS: Normal. KIDNEYS/URETERS/BLADDER: Normal. AORTA: Normal caliber. BOWEL/MESENTERY: There is mild wall thickening with mucosal hyperenhancement of the distal ileum with trace adjacent inflammatory fat stranding. Loops of distal small bowel proximal to the inflamed distal ileum are borderline dilated with air-fluid levels, but there is no aj small bowel obstruction. Multiple diverticula are identified, predominantly in the sigmoid colon. Questionable trace pericolonic stranding at the sigmoid. No abscess. No gross free air. Mesenteric lymph nodes are mildly enlarged. APPENDIX: Not visualized PERITONEUM: Normal. REPRODUCTIVE ORGANS: Normal. BONES/SOFT TISSUES: No acute fracture. OTHER: None. CONCLUSION: Inflammatory changes of a segment of distal ileum compatible with Crohn''s enteritis. Diverticula in the sigmoid colon. Questionable trace pericolonic stranding at the sigmoid is more likely artifactual, representing volume averaging. Trace sigmoid diverticulitis is an additional consideration. Electronically Signed: Armen Santana MD at 4:49 EDT , CT/Abdomen/Pelvis W IV Cont ONLY IMPRESSION: undefined
--- NOTE | 2023-07-05 03:56 | ED.VIS.GI ---
HPI HPI - GI History of Present Illness Chief Complaint: Abd Pain Informant: patient Narrative Narrative: Patient presenting around 3:30 AM, worsening periumbilical abdominal pain feels like cramping, that, nausea, vomiting, and increase in his chronic diarrhea, which is intermittent related to his Crohn's, has been present for about 2 days now. Denies any fevers or chills. Denies any bright red blood per rectum or melena. No hematemesis. States he was diagnosed with Crohn's long ago, he states the only medication he takes for it is Prilosec, he had a partial small bowel resection at [facility] remotely. He states there was another medication he was post to be on but he cannot remember what it is any stop taking it long ago. [facility] Medical History Anger Anxiety Arthritis Bipolar 1 disorder Crohn disease Depression Diastasis recti High cholesterol History of steroid therapy Injury of back Non-smoker Right carpal tunnel syndrome Schizophrenia Wears glasses Home Medications omeprazole 20 mg tablet,delayed release 20 mg PO PRN PRN GERD 06/11/22 [History Last Taken Unknown] cholecalciferol (vitamin D3) 25 mcg (1,000 unit) capsule (Vitamin D3) 25 mcg PO DAILY 07/01/22 [History Last Taken 12/16/22 06:00] multivitamin 1 tab PO DAILY 07/01/22 [History Last Taken 12/16/22 06:00] quetiapine 25 mg tablet 25 mg PO QHS 11/13/22 [History Last Taken Unknown] mesalamine 400 mg capsule (with delayed release tablets inside) 800 mg (2 x 400 mg) PO BID #120 ea 07/05/23 [Rx Last Taken Unknown] metronidazole 500 mg tablet 500 mg PO Q6H #40 tabs 07/05/23 [Rx Last Taken Unknown] ondansetron 4 mg disintegrating tablet 8 mg (2 x 4 mg) PO Q8H PRN PRN Nausea #20 tabs 07/05/23 [Rx Last Taken Unknown] prednisone 10 mg tablet 10 mg PO UD #30 tabs 07/05/23 [Rx Last Taken Unknown] Allergy/AdvReac Type Severity Reaction Status Date / Time Penicillins [PCN] Allergy Other Verified 07/05/23 03:47 Family History Mother Asthma Cancer Father Hypertension Ulcer Brother Diabetes Surgical History History of carpal tunnel release (~2021) History of carpal tunnel surgery of right wrist History of colonoscopy (~2015) History of colonoscopy (~2012) History of incisional hernia repair History of resection of small bowel Social History Smoking Status: Never smoker ROS ROS ED Constitutional Constitutional ED: Denies chills or fever(s) Eyes Eyes: Denies change in vision or diplopia ENT ENT ED: Denies rhinorrhea or sore throat Cardiovascular Cardiovascular: Denies chest pain or palpitations Respiratory/Chest Respiratory/Chest: Denies cough or dyspnea Gastrointestinal Gastrointestinal: Reports abdominal pain, diarrhea, nausea and vomiting; Denies hematemesis, hematochezia or melena Genitourinary Genitourinary ED: Denies dysuria or hematuria Musculoskeletal Musculoskeletal: Denies back pain or neck pain Integumentary Denies abscess or rash Neurologic Neurologic: Denies headache(s), paresthesias or weakness Psychiatric Psychiatric: Denies anxiety or suicidal thoughts EXAM Physical Exam Const Vital Signs: 07/05/23 03:47 Temperature 97.6 F L Temperature Source Temporal Pulse Rate 77 Respiratory Rate 18 Blood Pressure 155/71 H Blood Pressure Mean 99 Pulse Ox 99 Positive well nourished and well developed General Appearance ED: well developed and NAD HEENT Reports moist mucous membranes normocephalic and atraumatic Eyes PERRL and EOMs intact bilaterally Neck full ROM and supple Resp normal respiratory effort and clear to auscultation bilaterally Cardio regular rate, regular rhythm and no murmurs GI non-distended GI Narrative: Diffuse upper and mid abdominal tenderness, no guarding or rebound, nontender lower abdomen. Protuberant abdomen, not necessarily distended. Auscultation: hyperactive bowel sounds Palpation: soft Back/Spine no CVA tenderness General Back: other FROM Extremity normal to inspection General Extremety ED: Negative for edema, pulses abnormal or tenderness General Extremity: Negative for edema or pulses abnormal Neuro oriented x3, CN's II-XII intact bilaterally and no sensory deficits noted Sensorium / Orientation: awake and alert Motor Exam: strength 5/5 throughout Skin no rashes or lesions noted and no wounds MDM MDM MDM Narrative Medical decision making narrative: Patient having symptoms of a Crohn's flareup but with abdominal tenderness, differential includes complications of Crohn's including a bowel obstruction less likely since he is having lots of diarrhea, intra-abdominal abscess, etc. CT with IV contrast shows what appears to be findings consistent with a Crohn's exacerbation. My interpretation of the CT agrees with that of the radiologist. He also mentions the possibility of mild sigmoid diverticulitis. He is really not tender in the left lower quadrant I think that is less likely, he did not have diarrhea in the emergency department for us to send for C. difficile testing, so in order to cover both of these possibilities am going to treat him empirically with metronidazole in addition to a course of steroids. In trying to determine the medication that he used to be on that he ran out of and no longer takes, he suspects that mesalamine is what it was. He is basically taking omeprazole and nothing for his Crohn's maintenance at this time which may be part of why he is having an acute exacerbation. His symptoms are not severe, I think he can be treated as an outpatient, with fluids, Zofran, morphine here he is doing well, we will discharge him home and refer him to GI since he does not follow with one locally. History & Record Review Additional record(s) reviewed:: Prior outpatient record (colonoscopy from [facility], 2022 outpt herniorrhaphy surgical notes) Lab Data Attestation: I reviewed the patient's lab results. Labs: Laboratory Results - last 24 hr 07/05/23 03:55 WBC 7.9 RBC 4.56 L Hgb 13.4 Hct 42.5 MCV 93.2 MCH 29.4 MCHC 31.5 L RDW Std Deviation 43.7 RDW Coeff of Manuel 12.8 Plt Count 318 MPV 10.2 Immature Gran % (Auto) 0.300 Neut % (Auto) 66.7 Lymph % (Auto) 19.1 [place] % (Auto) 10.6 H Eos % (Auto) 2.8 Baso % (Auto) 0.5 Absolute Neuts (auto) 5.2 Absolute Lymphs (auto) 1.50 Nucleated RBC % 0 Sodium 140 Potassium 4.3 Chloride 108 H Carbon Dioxide 26.0 Anion Gap 6 BUN 19 H Creatinine 0.94 Estim Creat Clear Calc 88.94 Est GFR (MDRD) Af Amer 108 Est GFR (MDRD) Non-Af 90 BUN/Creatinine Ratio 20.2 H Glucose 128 H Calcium 8.3 L Total Bilirubin 0.20 AST 15 ALT 54 Alkaline Phosphatase 88 Total Protein 7.2 Albumin 3.5 Globulin 3.7 Albumin/Globulin Ratio 0.9 Lipase 51 Radiography Diagnostic Testing: Clinical Impression(s) from Imaging Studies Abdomen/Pelvis CT 07/05/23 03:56 IMPRESSION: undefined Discharge Plan Triage Chief Complaint: Abd Pain ED Provider: Lion Chen Dx/Rx/DC Orders Clinical Impression: Exacerbation of Crohn's disease Instructions: Crohns Disease Dc Prescriptions: New prednisone 10 mg tablet 10 mg PO UD Qty: 30 0RF Rx Instructions: Take 4 tablets daily for 3 days, then 3 daily for 3 days, then 2 daily for 3 days, then 1 a day for 3 days. metronidazole [metronidazole] 500 mg tablet 500 mg PO Q6H Qty: 40 0RF ondansetron [ondansetron] 4 mg tablet,disintegrating 8 mg PO Q8H PRN PRN (Reason: Nausea) Qty: 20 0RF mesalamine 400 mg capsule (with del rel tablets) 800 mg PO BID Qty: 120 1RF No Action omeprazole 20 mg tablet,delayed release (DR/EC) 20 mg PO PRN PRN (Reason: GERD) Patient Comments: TAKE 1 TABLET BY MOUTH EVERY DAY quetiapine 25 mg tablet 25 mg PO QHS Patient Comments: take 1 or 2 tablets by oral route at bedtime. multivitamin Tablet 1 tab PO DAILY cholecalciferol (vitamin D3) [Vitamin D3] 25 mcg (1,000 unit) Capsule 25 mcg PO DAILY Primary Care Provider: Luis Goyal Referrals: Luis Goyal MD [Primary Care Provider] - Axel Nevarez DO [Med Staff - Active Staff] - (call for appt) Disposition Disposition: Home, Self Care
[2023-07-05 04:02] LABS: Absolute Neutrophil Count 5.2 X10^3/uL (2.0-7.7); Basophil# 0.04 X10^3/uL; Basophil% 0.5 % (0-1); Eosinophil# 0.22 X10^3/uL; Eosinophils% 2.8 % (0-5); Hematocrit 42.5 % (40-54); Hemoglobin 13.4 g/dL (13.0-16.5); Lymphocyte % 19.1 % (19-41); Mean Corp Hgb Conc 31.5 g/dL (32-36); Mean Corpuscular Hgb 29.4 pg (27.0-32.0); Mean Corpuscular Volume 93.2 fL (80-94); Mean Platelet Vol. 10.2 fl (6.2-12.0); Monocyte# 0.83 X10^3/uL; Monocyte% 10.6 % (0-10); NRBC Flagged by Analyzer 0 % (0-5); Neutrophil # 5.24 X10^3/uL (2.7-7.7); Neutrophil % 66.7 % (47-70); Platelet Count 318 K/mm3 (150-450); RBC Distribution Width CV 12.8 % (11.6-14.6); RBC Distribution Width SD 43.7 fl (35.1-43.9); Red Blood Count 4.56 M/mm3 (4.6-6.2); White Blood Count 7.9 K/mm3 (4.4-11.0)
[2023-07-05] MEDS: Morphine 4 MG/ML Syringe IV (04:03)
[2023-07-05] MEDS: Ondansetron 4 MG/2 ML Vial IV (04:03)
[2023-07-05] MEDS: 0.9% Normal Saline (1000mL) 1,000 ML 1000 ML IV (04:03)
[2023-07-05 04:20] LABS: ALB/GLOB Ratio 0.9 RATIO (0.9-2.4); AST(SGOT) 15 U/L (15-37); Alanine Aminotransfer ALT/SGPT 54 U/L (16-61); Albumin, Serum 3.5 g/dL (3.2-5.0); Alkaline Phosphatase 88 U/L (45-117); Anion Gap 6 (5-15); BUN 19 mg/dL (7-18); BUN/Creat Ratio 20.2 RATIO (10-20); Calcium,Total 8.3 mg/dL (8.5-10.1); Chloride 108 mmol/L (98-107); Creatinine, Serum 0.94 mg/dL (0.70-1.30); EST Glomerular Filtration Rate 90 mL/min (>60); Est Glom Filt Rate - Afr Amer 108 mL/min (>60); Estimated Creatinine Clearance 88.94 ml/min; Globulin 3.7 g/dL (2.2-4.2); Glucose 128 mg/dL (74-106); Lipase 51 U/L (13-75); Potassium 4.3 mmol/L (3.5-5.1); Protein, Total 7.2 g/dL (6.4-8.2); Sodium Level 140 mmol/L (136-145)
[2023-07-05] MEDS: metroNIDAZOLE 500 MG Tablet PO (05:28)
[2023-07-05] MEDS: MethylPREDNISolone 125 MG/2 ML Vial IV (05:28)
[2023-07-05 05:31] VITALS: BP 131/72; PULSE 81; RESP 16; O2SAT 99
== END 2023-07-05 05:32 | disposition home or self-care (01) ==
PROVIDERS: Emergency Provider Emergency Medicine; PCP Family Medicine; Visit Provider Emergency Medicine
DX: K50.90 Crohn's disease, unspecified, without complications (principal)
CPT/HCPCS: 74177; 80053; 83690; 85025; 96361; 96374; 96375; 99284; J7030; Q9967; A4216; J2405

== ENCOUNTER 2023-09-08 11:47 | Emergency (ER) | payer BC, SELFPAY ==
[2023-09-08 11:48] VITALS: BP 113/89; PULSE 78; RESP 16; TEMP 36.6; O2SAT 99; BMI 26.3
--- NOTE | 2023-09-08 12:24 | RAD_ITS ---
EXAM: XR CHEST, 1 VIEW CLINICAL INDICATION: cough TECHNIQUE: Frontal view of the chest. COMPARISON: No relevant prior studies available. FINDINGS: LUNGS AND PLEURAL SPACES: Unremarkable. No consolidation or edema. No pneumothorax. No effusion. HEART: Unremarkable. Cardiac silhouette not enlarged. MEDIASTINUM: Central airways and mediastinal contour are unremarkable. BONES/JOINTS: Unremarkable. No acute fracture. SOFT TISSUES: Unremarkable. RAD/Chest 1 View (Portable) IMPRESSION: No radiographic evidence of acute cardiopulmonary disease. Electronically Signed: Gary Saba MD at 12:57 EST ,
--- NOTE | 2023-09-08 12:27 | EDS_ITS ---
HPI HPI - URI History of Present Illness Chief Complaint: Cold Sx Informant: patient Onset/Context/Timing Onset: Days Context: Gradual Onset Timing: Intermittent Current Severity: Mild Maximum Severity: Mild Associated Symptoms Associated Symptoms: Positive for Nasal Congestion, Myalgias and Nonproductive cough Narrative Narrative: 53-year-old male past medical history of Crohn's. States that he has had URI symptoms for the past 5 to 6 days. Intermittent diarrhea. No vomiting. Nonproductive cough. No documented fever. No shortness of breath. Prior similar symptoms: Yes Recent Illness/Hospitalization: No ROS ROS ED ROS Narrative Cough. Diarrhea. Review of Systems ROS Unobtainable: Denies due to encephalopathy Constitutional Constitutional ED: Reports chills Eyes Eyes: Denies blurry vision ENT ENT ED: Denies ear pain Cardiovascular Cardiovascular: Denies chest pain Respiratory/Chest Respiratory/Chest: Reports cough; Denies dyspnea Gastrointestinal Gastrointestinal: Reports diarrhea; Denies abdominal pain, constipation, melena, nausea or vomiting Genitourinary Genitourinary ED: Denies dysuria or hematuria Musculoskeletal Musculoskeletal: Denies arthralgias or back pain Integumentary Denies abscess Neurologic Neurologic: Denies headache(s) Psychiatric Psychiatric: Denies anxiety Endocrine Endocrinology: Denies cold intolerance Hematologic/Lymphatic Hematologic/Lymphatic: Denies easy bleeding, easy bruising or lymphadenopathy Allergic/Immunologic Allergic/Immunologic ED: Denies mouth swelling, tongue swelling or urticaria PFSH PFSH Medical History Anger Anxiety Arthritis Bipolar 1 disorder Crohn disease Depression Diastasis recti High cholesterol History of steroid therapy Injury of back Non-smoker Right carpal tunnel syndrome Schizophrenia Wears glasses Home Medications omeprazole 20 mg tablet,delayed release 20 mg PO PRN PRN GERD 06/11/22 [History Last Taken Unknown] cholecalciferol (vitamin D3) 25 mcg (1,000 unit) capsule (Vitamin D3) 25 mcg PO DAILY 07/01/22 [History Last Taken 12/16/22 06:00] multivitamin 1 tab PO DAILY 07/01/22 [History Last Taken 12/16/22 06:00] quetiapine 25 mg tablet 25 mg PO QHS 11/13/22 [History Last Taken Unknown] mesalamine 400 mg capsule (with delayed release tablets inside) 800 mg (2 x 400 mg) PO BID #120 ea 07/05/23 [Rx Last Taken Unknown] metronidazole 500 mg tablet 500 mg PO Q6H #40 tabs 07/05/23 [Rx Last Taken Unknown] ondansetron 4 mg disintegrating tablet 8 mg (2 x 4 mg) PO Q8H PRN PRN Nausea #20 tabs 07/05/23 [Rx Last Taken Unknown] prednisone 10 mg tablet 10 mg PO UD #30 tabs 07/05/23 [Rx Last Taken Unknown] Allergy/AdvReac Type Severity Reaction Status Date / Time Penicillins [PCN] Allergy Other Verified 07/05/23 03:47 Family History Mother Asthma Cancer Father Hypertension Ulcer Brother Diabetes Surgical History History of carpal tunnel release (~2021) History of carpal tunnel surgery of right wrist History of colonoscopy (~2015) History of colonoscopy (~2012) History of incisional hernia repair History of resection of small bowel Social History Smoking Status: Never smoker EXAM Physical Exam Narrative Exam Narrative: Well-appearing middle-age male. Vital signs are stable afebrile. Pulse ox 99% on room air no hypoxia. HEENT exam unremarkable. Posterior pharynx normal. Moist mucous membranes. Neck nontender no lymphadenopathy. Lungs clear to auscultation bilaterally. Dry cough. Heart regular rhythm rate about 80 no murmur. Chest wall and ribs nontender. Abdomen soft nontender. Back nontender. Moving all 4 extremities. Nontender no edema. He is awake and alert. Skin no rashes. Multiple tattoos. Const Vital Signs: 09/08/23 11:48 Temperature 97.8 F Temperature Source Temporal Pulse Rate 78 Respiratory Rate 16 Blood Pressure 113/89 H Blood Pressure Mean 97 Pulse Ox 99 Oxygen Delivery Method Room Air Positive well nourished and well developed; Negative for obese, cachectic or contractures General Appearance ED: well developed and NAD; Negative for cachectic, contractures, cyanotic, diaphoretic or pallor Nutritional Appearance: Negative for cachectic or obese HEENT Reports moist mucous membranes normocephalic Face and Sinus: Negative for sinus tenderness Teeth and Gingiva: Negative for caries Throat: posterior oropharynx normal; Negative for tonsils abnormal or posterior oropharynx abnormal Eyes PERRL and EOMs intact bilaterally General Eye ED: Negative for pale conjunctiva, scleral icterus or other Neck no lymphadenopathy, supple, no meningeal signs and no JVD General: Negative for anterior neck swelling or lymphadenopathy Resp normal respiratory effort and clear to auscultation bilaterally Effort and Inspection: Negative for retractions Auscultation: Negative for rales, rhonchi or wheezes Cardio S1 normal heart sound, S2 normal heart sound and no murmurs Rate: regular rate Rhythm: regular rhythm GI non-tender, non-distended and no masses Inspection: Negative for abdominal distention Auscultation: normoactive bowel sounds Palpation: soft; Negative for tender, guarding, hepatomegaly, splenomegaly or mass Percussion: Negative for other Back/Spine no CVA tenderness and normal ROM General Back: Negative for CVA tenderness Cervical Spine: Negative for cervical spine tenderness Thoracic Spine / Upper Back: Negative for thoracic spinal tenderness Lumbar Spine / Lower Back: Negative for lumbar spinal tenderness Sacrum: Negative for tenderness Extremity normal to inspection and full ROM General Extremety ED: Negative for cyanosis, tenderness or other findings General Extremity: Negative for cyanosis or other findings Neuro oriented x3 and CN's II-XII intact bilaterally Sensorium / Orientation: alert, oriented to person, oriented to place and oriented to time; Negative for orientation impaired, lethargic, stuporous or o ther Motor Exam: strength 5/5 throughout Psych mental status grossly normal Appearance: Negative for other Attitude: No agitated Mood & Affect: Negative for depressed, anxious or tearful Skin General Skin Exam: Negative for jaundice or pallor Lesions: no lesions Rashes: no rashes Trauma: Negative for abrasion or laceration MDM MDM MDM Narrative Medical decision making narrative: 53-year-old male URI symptoms I suspect is viral. Patient tested for COVID and a chest x-ray. Clinically I do not suspect pneumonia. Repeat exam patient is doing well at 1:27 PM. We went over his negative chest x-ray negative labs. Will be treated as a viral syndrome. Fluids and rest. Tylenol Motrin. Follow-up if not improving. History & Record Review Discussion w/independent historian: Patient Additional record(s) reviewed:: Prior inpatient record and Prior outpatient record Lab Data Attestation: I reviewed the patient's lab results. Lab results narrative: COVID and flu tests are negative. Radiography Chest X-Ray - ED: 1 View, Read by ED Physician, Read by Radiologist, Heart, Lungs, Mediastinum, Bony Structures, No Acute Disease and Chronic Changes Diagnostic Testing: Clinical Impression(s) from Imaging Studies Chest X-Ray 09/08/23 12:24 IMPRESSION: No radiographic evidence of acute cardiopulmonary disease. Electronically Signed: Gary Saba MD at 12:57 EST , Chest x-ray, portable, single view interpreted both by myself and the radiologist shows no acute abnormality. Normal cardiac silhouette. Normal lung wong. No infiltrate. Discharge Plan Triage Chief Complaint: Cold Sx ED Provider: Sang Sweeney Dx/Rx/DC Orders Clinical Impression: Viral respiratory infection Instructions: ED Viral Syndrome (Adult) Prescriptions: No Action omeprazole 20 mg tablet,delayed release (DR/EC) 20 mg PO PRN PRN (Reason: GERD) Patient Comments: TAKE 1 TABLET BY MOUTH EVERY DAY quetiapine 25 mg tablet 25 mg PO QHS Patient Comments: take 1 or 2 tablets by oral route at bedtime. multivitamin Tablet 1 tab PO DAILY cholecalciferol (vitamin D3) [Vitamin D3] 25 mcg (1,000 unit) Capsule 25 mcg PO DAILY prednisone 10 mg tablet 10 mg PO UD Qty: 30 0RF Rx Instructions: Take 4 tablets daily for 3 days, then 3 daily for 3 days, then 2 daily for 3 days, then 1 a day for 3 days. metronidazole [metronidazole] 500 mg tablet 500 mg PO Q6H Qty: 40 0RF ondansetron [ondansetron] 4 mg tablet,disintegrating 8 mg PO Q8H PRN PRN (Reason: Nausea) Qty: 20 0RF mesalamine 400 mg capsule (with del rel tablets) 800 mg PO BID Qty: 120 1RF Primary Care Provider: Luis Goyal Referrals: Luis Goyal MD [Primary Care Provider] - 10-14 Days if not better Activity Restrictions/Additional Instructions: Plenty of fluids and rest. Alternate Tylenol Motrin for fever and bodyaches. Follow-up with your doctor if not improving. Your COVID and flu test were both negative. Your chest x-ray showed no signs of pneumonia. Disposition Disposition: Home, Self Care
--- NOTE | 2023-09-08 13:35 | ED.RN ---
Per Dr. Sweeney, pt. needs a work note to be off until Wednesday.
== END 2023-09-08 13:40 | disposition home or self-care (01) ==
PROVIDERS: Emergency Provider Emergency Medicine; PCP Family Medicine; Visit Provider Emergency Medicine
DX: J06.9 Acute upper respiratory infection, unspecified (principal)
CPT/HCPCS: 71045; 87428; 99282

== ENCOUNTER 2023-12-20 20:41 | Emergency (ER) | payer BC, SELFPAY ==
[2023-12-20 20:41] VITALS: BP 115/67; PULSE 85; RESP 16; TEMP 36.2; O2SAT 96; BMI 28.1
--- NOTE | 2023-12-20 21:54 | EDS_ITS ---
HPI <Dr. Claudine Winkler MD - Last Filed: 12/21/23 00:16> History of Present Illness Chief Complaint: Back <Sangeeta Stein RN - Last Filed: 12/20/23 22:14> History of Present Illness Informant: patient Onset/Context/Timing Onset: Month(s) (2) Context: Gradual Onset Timing: Intermittent Quality: Sharp Location: Bilateral hips Current Severity: 10/10 Maximum Severity: 10/10 Worsened by: Bending Relieved by: Rest Narrative Narrative: Patient is a 53-year-old male with a known prior back injury as a child who presents to the ED for lower back pain and bilateral hip pain for 2 months. Patient reports pain is worse in the morning and takes him approximately 2 hours to get moving . He describes the pain as sharp and rates it 10/10. He has been using Bengay, Motrin, and Tylenol at home without relief. He reports pain is worse when bending or picking up objects. He reports the pain radiates down his lateral thigh. He does describe a prior injury as a young adult in which he has chronic back pain and left leg weakness. He has not seen a doctor for this. He denies bowel or bladder incontinence. He also has a nonproductive cough for 1 and half weeks and clear nasal drainage. He denies fever or chills. Denies recent travel. Denies recent hospitalization or surgeries. Prior similar symptoms: Yes Recent Illness/Hospitalization: No PFSH <Dr. Claudine Winkler MD - Last Filed: 12/21/23 00:16> PFS Medical History Anger Anxiety Arthritis Bipolar 1 disorder Crohn disease Depression Diastasis recti High cholesterol History of steroid therapy Injury of back Non-smoker Right carpal tunnel syndrome Schizophrenia Wears glasses Home Medications omeprazole 20 mg tablet,delayed release 20 mg PO PRN PRN GERD 06/11/22 [History Last Taken Unknown] cholecalciferol (vitamin D3) 25 mcg (1,000 unit) capsule (Vitamin D3) 25 mcg PO DAILY 07/01/22 [History Last Taken 12/16/22 06:00] multivitamin 1 tab PO DAILY 07/01/22 [History Last Taken 12/16/22 06:00] quetiapine 25 mg tablet 25 mg PO QHS 11/13/22 [History Last Taken Unknown] mesalamine 400 mg capsule (with delayed release tablets inside) 800 mg (2 x 400 mg) PO BID #120 ea 07/05/23 [Rx Last Taken Unknown] metronidazole 500 mg tablet 500 mg PO Q6H #40 tabs 07/05/23 [Rx Last Taken Unknown] ondansetron 4 mg disintegrating tablet 8 mg (2 x 4 mg) PO Q8H PRN PRN Nausea #20 tabs 07/05/23 [Rx Last Taken Unknown] prednisone 10 mg tablet 10 mg PO UD #30 tabs 07/05/23 [Rx Last Taken Unknown] cyclobenzaprine 10 mg tablet 10 mg PO TID PRN Muscle Spasm #20 TABLETS 12/20/23 [Rx Last Taken Unknown] naproxen 500 mg tablet (Naprosyn) 500 mg PO BID PRN pain #20 tabs 12/20/23 [Rx Last Taken Unknown] prednisone 20 mg tablet 40 mg (2 x 20 mg) PO DAILY #10 tabs 12/20/23 [Rx Last Taken Unknown] Allergy/AdvReac Type Severity Reaction Status Date / Time Penicillins [PCN] Allergy Other Verified 12/20/23 20:43 Family History Mother Asthma Cancer Father Hypertension Ulcer Brother Diabetes Surgical History History of carpal tunnel release (~2021) History of carpal tunnel surgery of right wrist History of colonoscopy (~2015) History of colonoscopy (~2012) History of incisional hernia repair History of resection of small bowel Social History Smoking Status: Never smoker ROS <Sangeeta Stein RN - Last Filed: 12/20/23 22:14> ROS ED Constitutional Constitutional ED: Denies chills, fever(s) or sweats Eyes Eyes: Denies change in vision ENT ENT ED: Reports rhinorrhea; Denies ear pain or sore throat Cardiovascular Cardiovascular: Denies chest pain, orthopnea, palpitations or racing heartbeat Respiratory/Chest Respiratory/Chest: Denies cough, dyspnea or orthopnea Gastrointestinal Gastrointestinal: Denies abdominal pain, constipation, diarrhea, nausea or vomiting Genitourinary Genitourinary ED: Denies dysuria, hematuria or urinary frequency Musculoskeletal Musculoskeletal: Reports back pain; Denies arthralgias or myalgias Integumentary Denies rash Neurologic Neurologic: Reports other Details: Chronic left leg weakness. ; Denies headache(s) Psychiatric Psychiatric: Denies anxiety or depression EXAM <Dr. Claudine Winkler MD - Last Filed: 12/21/23 00:16> Physical Exam Const Vital Signs: 12/20/23 20:41 Temperature 97.2 F L Temperature Source Temporal Pulse Rate 85 Respiratory Rate 16 Blood Pressure 115/67 Blood Pressure Mean 83 Pulse Ox 96 Oxygen Delivery Method Room Air <Sangeeta Stein RN - Last Filed: 12/20/23 22:14> Physical Exam Narrative Exam Narrative: Patient awake, alert, no acute distress. Well kept. Family at bedside. Const Vital Signs: 12/20/23 20:41 Temperature 97.2 F L Temperature Source Temporal Pulse Rate 85 Respiratory Rate 16 Blood Pressure 115/67 Blood Pressure Mean 83 Pulse Ox 96 Oxygen Delivery Method Room Air Positive well nourished and well developed General Appearance ED: well developed and NAD HEENT Reports moist mucous membranes Eyes PERRL Eyes Narrative: No frontal or maxillary sinus pressure with palpation. Neck no lymphadenopathy, supple and no JVD General: Negative for tenderness Chest Wall inspection of chest normal and palpation of chest normal Resp normal respiratory effort Resp Narrative: Rhonchi throughout that clears with coughing. Auscultation: wheezes inspiratory wheezes, left upper and right upper Cardio regular rate, regular rhythm, S1 normal heart sound and S2 normal heart sound GI normal to inspection, nondistended, normoactive bowel sounds and non-tender Palpation: soft Back/Spine Cervical Spine: Negative for cervical spine tenderness Thoracic Spine / Upper Back: Negative for thoracic spinal tenderness Lumbar Spine / Lower Back: Negative for lumbar spinal tenderness Extremity normal to inspection Extremity Narrative: Pain to bilateral hips with palpation. Patient reports pain radiates from lower buttocks bilaterally to lateral thighs. General Extremety ED: Negative for edema or tenderness General Extremity: Negative for edema Neuro oriented x3 Sensorium / Orientation: alert Motor Exam: strength 5/5 throughout Psych mental status grossly normal Skin no rashes or lesions noted, no wounds and skin turgor normal MDM <Dr. Claudine Winkler MD - Last Filed: 12/21/23 00:16> MDM Treatment and Re-Evaluation :: Plan discussed with patient. Patient agreeable. Patient to be discharged home. Patient seen and evaluated with MORGAN student. I personally interviewed and examined the patient. I was involved in all aspects of patient's orders, interpretation of results, and treatment. Patient presents secondary to back pain. He has a history of chronic back pain that has been worse over the past 2 months. He states it has especially been bad over the past 2 weeks. He has been taking Bengay, Tylenol, and ibuprofen. He has not yet made an appointment to see his primary care physician. There eisenberg ve been no recent injuries to his back. No fever, bowel or bladder abnormalities. Patient lying in bed no acute distress. Head and neck examination unremarkable. Heart is regular rate and rhythm. Lung sounds are with mild expiratory wheezes bilaterally. Abdomen is soft and nontender. Back examination reveals no midline tenderness. He does have tenderness in the bilateral lower lumbar paraspinal muscles and into the sciatic notch bilaterally. He has good strength and sensation noted in his lower extremities. Strong distal pulses. Patient given albuterol inhaler here. He is given naproxen, Flexeril, and prednisone. He is to follow-up with his primary care physician. I do not feel imaging is necessary as he has not had any new injury. He has no signs or symptoms of acute infection. <Sangeeta Stein RN - Last Filed: 12/20/23 22:14> [facility] Narrative Medical decision making narrative: Patient will be given albuterol via inhaler 2 puffs while in the ED for wheezing. He will be given Flexeril 10 mg for back spasms/pain. He will also be given a dose of prednisone 40 mg for inflammation. He does have a ride home. He has been advised no driving or operating heavy machinery Treatment and Re-Evaluation :: Plan discussed with patient. Patient agreeable. Patient to be discharged home. Discharge Plan Triage Chief Complaint: Back ED Provider: Claudine Winkler Dx/Rx/DC Orders Clinical Impression: Sciatica, Back pain, Wheezing Instructions: Inhaler Wo Spacer Steps, ED Back Pain (Acute or Chronic), ED Sciatica Prescriptions: New naproxen [Naprosyn] 500 mg tablet 500 mg PO BID PRN (Reason: pain) Qty: 20 0RF cyclobenzaprine 10 mg tablet 10 mg PO TID PRN (Reason: Muscle Spasm) Qty: 20 0RF prednisone 20 mg tablet 40 mg PO DAILY Qty: 10 0RF No Action omeprazole 20 mg tablet,delayed release (DR/EC) 20 mg PO PRN PRN (Reason: GERD) Patient Comments: TAKE 1 TABLET BY MOUTH EVERY DAY quetiapine 25 mg tablet 25 mg PO QHS Patient Comments: take 1 or 2 tablets by oral route at bedtime. multivitamin Tablet 1 tab PO DAILY cholecalciferol (vitamin D3) [Vitamin D3] 25 mcg (1,000 unit) Capsule 25 mcg PO DAILY prednisone 10 mg tablet 10 mg PO UD Qty: 30 0RF Rx Instructions: Take 4 tablets daily for 3 days, then 3 daily for 3 days, then 2 daily for 3 days, then 1 a day for 3 days. metronidazole [metronidazole] 500 mg tablet 500 mg PO Q6H Qty: 40 0RF ondansetron [ondansetron] 4 mg tablet,disintegrating 8 mg PO Q8H PRN PRN (Reason: Nausea) Qty: 20 0RF mesalamine 400 mg capsule (with del rel tablets) 800 mg PO BID Qty: 120 1RF Primary Care Provider: Luis Goyal Referrals: Luis Goyal MD [Primary Care Provider] - 1 Week Activity Restrictions/Additional Instructions: Use albuterol inhaler 2 puffs every 2-4 hours as needed for wheezing. Ice to back/hips for pain. Naproxen as needed to help decrease inflammation. Take with food. Flexeril as needed for spasms. No driving or operating heavy equipment with Flexeril. Prednisone as prescribed. Followup w/Dr Goyal in 2 weeks. Disposition Disposition: Home, Self Care Discharge Date/Time: 12/20/23 22:39
--- OUTSIDE RECORDS SUMMARY | 2023-12-20 22:09 | XMS RPT_ITS | CCD ---
Author Name Unknown Address [address] [place] [address] Organization [facility] Care Team Providers Care Compliance Analyst Name Role Phone Unavailable Primary Care Provider Unavailabl e Allergies Allergy Classification Reported Allergen(s) Allergy Type Date of Onset Reaction(s) Facility (1 source) Penicillins Propensity to adverse reactions to drug 07-04-2022 Intolerance [facility] Medications Current Medications Medication Drug Class(es) Dates Sig (Normalized) Sig (Original) valACYclovir 1000 mg oral tablet (1 source) Herpesvirus Nucleoside Analog DNA Polymerase Inhibitor, Herpes Simplex Virus Nucleoside Analog DNA Polymerase Inhibitor, Herpes Zoster Virus Nucleoside Analog DNA Polymerase Inhibitor Start: 07-04-2022 End: 07-11-2022 take 1 tablet by mouth three times daily valACYclovir (VALTREX) 1 gram Indications: Rash of penis Take 1 tablet by mouth three times daily for 7 days. 21 tablet 0 07/04/2022 07/11/2022 Active Completed/Discontinued Medications Medication Drug Class(es) Dates Sig (Normalized) Sig (Original) ibuprofen 200 mg oral tablet (1 source) Nonsteroidal Anti-inflammatory Drug take 1 tablet by mouth every six hours as needed ibuprofen (MOTRIN) 200 mg tablet Take 200 mg by mouth every 6 hours as needed. 0 Active Results Test Name Value Interpretation Reference Range Facil ity Encounters Encounter Date Encounter Type Care Provider Facility Start: 07-05-2022 Telephone encounter Harjinder floyd APRN.WEB DESIGN INTERN Work Phone: [facility] Plan of Treatment Date Care Activity Detail Author Start: 06-11-2022 Influenza vaccination INFLUENZA (#1) [facility] Start: 2021 SHINGRIX VACCINE (1 of 2) SHINGRIX V ACCINE (1 of 2) [facility] Start: 04-03-2021 COVID-19 VACCINE (3 - Booster for Moderna series) COVID-19 VACCINE (3 - Booster for Moderna series) [facility] Start: 2016 COLOGUARD (FIT-DNA) COLOGUARD (FIT-D NA) [facility] Start: 2016 Colonoscopy COLONOSCOPY [facility] Start: 2016 COLORECTAL CANCER SCREENING COLORECTAL CANCER SCREENING [facility] Start: [address] COLONOGRAPHY [facility] Start: 2016 DIABETES SCREEN DIABETES SCREEN [facility] Start: 2016 FECAL OCCULT BLOOD FECAL OCCULT BLOO D [facility] Start: 2016 SIGMOIDOSCOPY SIGMOIDOSCOPY [facility] Start: 2006 LIPID SCREEN LIPID SCREEN [facility] Start: 1990 Urine microalbumin profile DTAP,TDAP ,TD (1 - Tdap) [facility] Start: 1989 HIV SCREENING HIV SCREENING [facility] Start: 1983 Adult depression scr eening assessment DEPRESSION SCREENING [facility] Start: 1971 HEPATITIS B (1 of 3 - 3-dose series) HEPATITIS B (1 of 3 - 3-dose series) [facility] Payers Date Payer Category Payer Unknown [employer] C[employer] PPO OOS [id number] 2022-Present [phone] [address] [place] [address] PPO [id number] 2022 Unknown [id number] Social History Date Type Detail Facility Start: 07-04-2022 Tobacco smoking stat us ORIS Never smoked tobacco [facility] Start: 07-04-2022 Tobacco use and exposure Smokeless tobacco non-user [facility] Start: 1971 Sex Assigned At Not on file [facility] Start: 06-24-2022 End: 07-04-2022 Exposure to SARS-CoV-2 (event) Unable to assess [facility] Work Phone: Note 07-05-2022 Telephone Encounter - Moira Santos MA - 07/05/2022 11:40 AM EDTTelephone Encounter - Harjinder Amos APRN.CNP - 07/05/2022 10:29 AM EDT Note Date & Type Note Facility 07-05-2022 Miscellaneous Notes Formattin g of this note might be different from the original. Verified results with pt. Pt verbalized understanding. Moira Santos MA Please notify that lab test negative for herpes/shingles. Continued with plan as discussed during visit. documented in this encounter [facility] Progress note 07-04-2022 Note Date & Type Note Facility 07-04-2022 Note HNO ID: [id number] Author: Kp Christopher MD Service: ? Author Type: Physician Type: Progress Notes Filed: 07/04/2022 12:04 PM Note Text: Patient presents with: STD: Penis irritation x 3 days HPI: Symptoms for 5 days. First noticed sore area on the penis while using a condom to have sex with a woman. SKIN: irritation/burn, spots that come and go Dysuria: No Hematuria/discharge: No Nausea: No Fever or chills: No Back pain: No Abdominal pain: No Prior STI: No. Had negative testing including HIV this summer. Right CT surgery planned 07/08/22. PAST MEDICAL HISTORY Diagnosis Date Crohn disease (HCC) PAST SURGICAL HISTORY Procedure Laterality Date COLONOSCOPY retrieve marijuana bag ILEOSTOMY HX 2009 exploratory laparotomy and ileocecectomy for SBO MEDICATIONS: Current Outpatient Medications Medication Sig traZODone (DESYREL) 100 mg tablet Take 100 mg by mouth daily at bedtime. ibuprofen (MOTRIN) 200 mg tablet Take 200 mg by mouth every 6 hours as needed. No current facility-administered medications for this visit. ALLERGIES: ALLERGIES Allergen Reactions Penicillins Intolerance Childhood allergy VITALS: BP 102/60 Pulse 88 Temp 36.5 ?C (97.7 ?F) Resp 14 Wt 81.6 kg (180 lb) SpO2 97% PHYSICAL EXAM: GEN: NAD HEENT: EOMI, conjunctiva clear, HEART: regular rate and rhythm, no murmurs LUNGS: clear to auscultation, no wheezes or crackles, no increased WOB ABDOMEN: Remote midline laparotomy scar, 3 cm umbilical hernia, soft, nondistended, no masses, no tenderness BACK: No CVA tenderness : Normal uncircumcised external male genitalia. 1 mm vesicle below the glans on the left and a few shallow ulcerations and erythema surrounding. ASSESSMENT/PLAN: 1. Rash of penis - ICD9: 607.9, ICD10: R21 Suspect primary herpes infection. - HSV 1,2/VZV AMP MOLECULAR DETECT Start - VALACYCLOVIR 1 GRAM TABLET Education about HSV relapsing infection, contagiousness, and treatment discussed. Kp Christopher MD [facility] Summary Purpose Family History No Family History Records Found Advance Directives No Advanced Directives Records Found Additional Source Comments Source Comments (unrecognize d section and content) In the event this informatio n is protected by the Federal Confidentiality of Alcohol and Drug Abuse Patient Records regulations: The Federal rules restrict any use of the information to criminally investigate or prosecute any alcohol or drug abuse patient.[facility] Reason for Visit (unrecogniz ed section and content) (unrecognized sect ion and content) No Status Records Found INFORMATION SOURCE (unrecogn ized section and content) FOR RECORDS PERTAINING TO PATIENTS WHO ARE OR HAVE BEEN ENROLLED IN A CHEMICAL DEPENDENCY/SUBSTANCEABUSE PROGRAM, SOME INFORMATION MAY BE OMITTED. This clinical summary was aggregated from multiple sources. Caution should be exercised in using it in the provision of clinical care. This summary normalizes information from multiple sources, and as a consequence, information in this document may materially change the coding, format and clinical context of patient data. In addition, data may be omitted in some cases. CLINICAL DECISIONS SHOULD BE BASED ON THE PRIMARY CLINICAL RECORDS. [employer] provides no warranty or guarantee of the accuracy or completeness of information in this document.
[2023-12-20] MEDS: Albuterol Sulfate 8 gm Inhaler (60 puffs) 2 PUFF INHALATION (22:15)
[2023-12-20] MEDS: cycloBENZAPRine HCl 10 MG Tablet PO (22:16)
[2023-12-20] MEDS: predniSONE 20 MG Tablet 40 MG PO (22:16)
== END 2023-12-20 22:39 | disposition home or self-care (01) ==
LOC: ED 22:07
PROVIDERS: Emergency Provider Emergency Medicine; PCP Family Medicine; Visit Provider Emergency Medicine
DX: M54.40 Lumbago with sciatica, unspecified side (principal); F20.9 Schizophrenia, unspecified; R06.2 Wheezing; M25.552 Pain in left hip; M25.551 Pain in right hip
CPT/HCPCS: 99282

== ENCOUNTER → 2023-12-23 | Outpatient (CLI) | payer BC, SELFPAY ==
--- NOTE | 2023-12-23 15:33 | RAD_ITS ---
STUDY: X-RAY - LUMBOSACRAL SPINE REASON FOR EXAM: Male, 53 years old. lumbago with sciatica TECHNIQUE: 6 view(s) of the lumbosacral spine were obtained. COMPARISON: 08/31/2022 FINDINGS: Normal lumbar lordosis. There is no substantial scoliosis. There is normal alignment of the vertebrae. Normal vertebral bodies and endplates. There is multi-level degenerative disc disease with multi-level disc space narrowing. No evidence of instability on the flexion or extension views, range of motion is limited Normal bilateral sacral ala, sacroiliac joints, and visualized sacrum. Normal visualized soft tissue structures. RAD/L/S Spine w Bend Min 6 Vw IMPRESSION: Age consistent degenerative changes, no acute findings Electronically Signed: Varinder Abreu MD at 8:36 EDT ,
== END | disposition home or self-care (01) ==
LOC: MTRAD 15:31
PROVIDERS: PCP Family Medicine; Referring Provider Family Medicine; Visit Provider Family Medicine
DX: M54.40 Lumbago with sciatica, unspecified side (principal)
CPT/HCPCS: 72114

== ENCOUNTER 2024-02-24 17:00 | Outpatient (RCR) | payer BC, SELFPAY ==
--- NOTE | 2024-01-17 19:10 | HP.PTEVAL ---
Patient's Visit Information Visit Information Visit Information: LASHONDA RAMOS Jr. is a 53 year old M referred to Physical Therapy by Dr. Teddy Goyal MD with a diagnosis of RIGHT HIP PAIN. Date of Evaluation: 01/17/24 Physical Therapist: Ag Ortez, PT, Cert MDT, OCS Visit Plan Frequency: 2x /Week Duration: 4 Weeks Plan: PT INTERVENTIONS MODALITIES FOR PAIN ,POSTURAL EX'S,DLS ,GRADED LUMBAR ROM ,LE FLEXABLITY ,AND ACTIVITY MODIFICATION Subjective Subjective: This 53 y/o male presents to physical therapy with right back and hip pain Left > right. Patient has had back pain hamstrings and right hip pain lateral hip. Patient seen DR had x-rays DDD . Patient has h/o lumbar pain jumping out of windows ,and car. Pain medication. Aggravating factors ,bending,lifting ,sitting ,driving . Alleviating factors rest ,ice. Coughing/sneezing, Bowel/bladder-. Pain affects sleeping. Patient has no treatments . Pain is described as sharp pain ,denies paresthesia/tingling-. Patient pain affects QOL and function. Patient goals decrease pain SOCAIL: single VOACTION: Soto Aj Pain Bilateral Back: Pain Intensity (Out of 10): 10 Pain Intensity Range: 10 Left Lower Extremity: Pain Intensity (Out of 10): 8 Pain Intensity Range: 10 Objective Objective: POSTURE: slouched rounded shoulder ,reduce lordosis PALAPTION: tender LS /SI NEURO: c/o paresthesia/tingling legs reflexes L3-4,L4-5,L5-S1 2/3 FLEXABILITY: hamstrings min tight MMT: quads/hams 4-/5 ,hip flexion 4-/5 ,ankle 4/5 LUMBAR ROM: flexion mod loss pain ,extension mod loss pain,side glides mod loss pain Special Tests L/S Slump test left side: Positive L/S Slump test right side: Positive L/S Left Straight Leg Raise: Negative L/S Right Straight Leg Raise: Negative Lumbar Standing: Flexion - Mechanical Response: No effect Lumbar Standing: Flexion - Symptoms During Testing: Increases Lumbar Standing: Flexion - Symptoms After Testing: Worse Lumbar Standing: Extension - Mechanical Response: No effect Lumbar Standing: Extension - Symptoms During Testing: Increases Lumbar Standing: Extension - Symptoms After Testing: Worse Lumbar Standing: Right Side Glides - Mechanical Response: No effect Lumbar Standing: Right Side [place] - Symptoms During Testing: Increases Lumbar Standing: Left Side [place] - Mechanical Response: No effect Lumbar Standing: Left Side [place] - Symptoms During Testing: Increases Lumbar Standing: Left Side [place] - Symptoms After Testing: Worse Balance/Special Test Scores Oswestry Low Back Score: 34 Goals Goal 1:: Patient to be I with HEP Goal Time Frame: 4-6 Weeks Goal 2:: Patient to improve posture/body mechanics for ADL and job demands Goal Time Frame: 4-6 Weeks Goal 3:: Patient to improve lumbar ROM for function of recovery for job demands Goal Time Frame: 4-6 Weeks Goal 4:: Patient to improve back oswestry score by 5 points to improve function. Goal Time Frame: 4-6 Weeks Goal 5:: Patient to demonstrate 50% improvement with less pain and improved function Goal Time Frame: 4-6 Weeks Rehabilitation Potential Physical Therapy Diagnosis: This has lumbar radiculopathy possible disc involvement with pain position and motion testing worse with bending ,lifting ,sitting thus benefit from skilled PT Rehabilitation Potential: Fair Anticipated Interventions Patient/Client Instruction: Educate patient on: Condition and Plan of Care For the Purpose of:: To decrease pain, To increase ROM, To improve muscle performance and motor function, To improve ability to perform ADL's, To increase tolerance to activity/condition/position, To improve ability of physical actions for home/community/work/leisure, To improve health of tissue, To decrease soft tissue restriction, To increase flexibility/ROM and To reduce risk of recurrence Therapeutic Exercise to Include: Strength training, Postural training, Flexibilty training, Dynamic Lumbar Stabilization and Haylie Exercises For the Purpose of:: To decrease pain, To increase ROM, To improve nutrient delivery to tissue, To increase oxygenation perfusion, To improve muscle performance and motor function, To increase tolerance to activity/condition/position, To improve ability of physical actions for home/community/work/leisure, To improve health of tissue, To decrease soft tissue restriction, To increase flexibility/ROM, To reduce risk of recurrence and To prevent re-injury TENS: Yes IF ES: Yes Cryotherapy (ice pack, ice massage): Yes Thermo therapy (hot pack): Yes Ultrasound (thermal/non thermal): Yes For the Purpose of:: To decrease pain, To increase ROM, To improve nutrient delivery to tissue, To increase oxygenation perfusion, To improve health of tissue and To decrease soft tissue restriction Text: Thank you for the opportunity to evaluate your patient. For Medicare and Medicare HMO plans, please review the plan of care and approve it. It will need to be FAXED BACK to us at [phone] for Medicare purposes. For Medicare only, by signing this I certify the plan of care. Please let me know if there are questions or concerns regarding this plan of care. Physician Signature: Date:
--- NOTE | 2024-05-15 12:54 | HP.PTDCSUM_ITS ---
Discharge Summary D/C summary: It has been my pleasure to treat LASHONDA RAMOS Jr. referred by Dr. Teddy Goyal MD, with the diagnosis of RIGHT HIP PAIN for a total of 8 visit(s). Discharge Date: Please see the following information for a summary of their discharge status. Subjective Subjective: Not too much better Intermittent symptoms Plan see injection specialist ,possible MRI Pain Bilateral Back: Pain Intensity (Out of 10): 6 Left Lower Extremity: Pain Intensity (Out of 10): 6 Objective Objective/Function: POSTURE: slouched rounded shoulder ,reduce lordosis PALAPTION: tender LS /SI NEURO: c/o paresthesia/tingling legs reflexes L3-4,L4-5,L5-S1 2/3 FLEXABILITY: hamstrings min tight MMT: quads/hams 4-/5 ,hip flexion 4-/5 ,ankle 4/5 LUMBAR ROM: flexion mod loss pain ,extension mod loss pain,side glides mod loss pain MOTION TESTING : PERPHILIZES SYMPTOMS IN LEG Goals Goal 1:: Patient to be I with HEP Goal Progress: Progressing Goal 2:: Patient to improve posture/body mechanics for ADL and job demands Goal Progress: Progressing Goal 3:: Patient to improve lumbar ROM for function of recovery for job demands Goal Progress: Progressing Goal 4:: Patient to improve back oswestry score by 5 points to improve function. Goal Progress: Not Progressing Goal 5:: Patient to demonstrate 50% improvement with less pain and improved function Goal Progress: Not Progressing Plan Plan: RTD with possible MRI D/C Information d/c sentence: If there are questions or concerns regarding this patient's physical therapy, please feel free to call me at [phone]. Thank you for the referral of this patient. Sincerely, gA Ortez, PT, Cert MDT, OCS Balance/Gait/Functional tests Balance/Special Test Scores Oswestry Low Back Score: 34
== END 2024-02-24 19:00 | disposition home or self-care (01) ==
LOC: PT 17:00
PROVIDERS: PCP Family Medicine; Referring Provider Family Medicine; Visit Provider Family Medicine
DX: M16.0 Bilateral primary osteoarthritis of hip (principal); M51.36 Other intervertebral disc degeneration, lumbar region
CPT/HCPCS: 97014; 97110; 97162; 97530; G0283

== ENCOUNTER → 2024-05-19 | Outpatient (CLI) | payer BC, SELFPAY ==
--- NOTE | 2024-05-19 18:52 | CT_ITS ---
HISTORY: hip and pelvis pain. TECHNIQUE: Helically acquired images were obtained of the abdomen and pelvis without oral or IV contrast. A radiation dose optimization technique was used for this scan. 453 images. COMPARISON: 07/05/2023 FINDINGS: LOWER CHEST: Mild linear and groundglass opacities in the right middle and left lower lobes. Left lower lobe bleb. BOWEL: Bowel nondilated. Appendix not visualized with right lower quadrant ileocolic anastomosis noted. Colonic diverticulosis without focal pericolonic inflammatory change. PERITONEUM: No significant free fluid. LIVER: Fatty infiltration. GALLBLADDER/BILIARY TREE: Small dependent gallstones. SPLEEN/PANCREAS/ADRENAL GLANDS: Nonenlarged. KIDNEYS AND URETERS: No nephrolithiasis or obstructing ureteral calculus. VESSELS: No abdominal aortic aneurysm. PELVIC ORGANS: Unremarkable. ABDOMINAL WALL: Fat-containing inguinal hernias. Mild scarring at the umbilicus. BONES: Mild degenerative changes. Right paracentral disc protrusion of L4-5 resulting in right nerve root impingement and moderate-severe central canal stenosis. CT/Abdomen/Pelvis without Cont IMPRESSION: Cholelithiasis. Hepatic steatosis. Colonic diverticulosis without acute diverticulitis. Negative examination or renal stone. Mild atelectasis or inflammation in the lung bases. Degenerative disc disease of L4-5 with right nerve root impingement and spinal canal stenosis as above. Electronically Signed: Kiara Garcia MD at 8:52 EDT ,
== END | disposition home or self-care (01) ==
LOC: CT 18:52
PROVIDERS: PCP Family Medicine; Referring Provider Family Medicine; Visit Provider Family Medicine
DX: R10.9 Unspecified abdominal pain (principal)
CPT/HCPCS: 74176

== ENCOUNTER 2024-09-07 19:57 | Emergency (ER) | payer BC, SELFPAY ==
[2024-09-07 19:58] VITALS: BP 127/84; PULSE 96; RESP 16; TEMP 37.1; O2SAT 97; BMI 28.3
--- NOTE | 2024-09-07 21:13 | EDS_ITS ---
HPI History of Present Illness Chief Complaint: Laceration Narrative Narrative: Chief complaint and HPI: Laceration. 54-year-old male presents for evaluation of laceration to the base of the right dorsal thumb. Patient states that this occurred yesterday afternoon while working on a car. He states that he has applied peroxide, alcohol, soap and water. Patient presented for further evaluation and possible repair. Unknown if tetanus is updated. Denies injury elsewhere. Denies any pain. No numbness or tingling. Review of systems: See HPI Medications: As listed on the chart Allergies: As listed on the chart PFSH: Per chart Vital signs: As listed on the chart. Reviewed. Physical exam: Gen: A&O x3, NAD Head: Normocephalic, atraumatic Eyes: No sclera icterus, conjunctiva clear ENT: Moist mucous membranes CV: Regular rate Resp: Nonlabored respiration Musc: Full ROM of the thumb/all fingers/hand/wrist-all nontender to palpation, patient has a 2 cm laceration to the proximal/base of the right dorsal thumb- wound is clean without signs of infection, no active bleeding, radial/ulnar pulses plus 2 out of 4 bilaterally, good capillary refill, sensation intact PFS PFSH Medical History Lumbar radiculopathy Lumbar strain Diastasis recti Schizophrenia Bipolar 1 disorder Wears glasses History of steroid therapy Arthritis High cholesterol Injury of back Non-smoker Right carpal tunnel syndrome Anger Anxiety Depression Crohn disease Home Medications ?Medication ?Instructions ?Recorded ?Last Taken ?Type omeprazole 20 mg tablet,delayed 20 mg PO PRN PRN GERD 06/11/22 Unknown History release cholecalciferol (vitamin D3) 25 25 mcg PO DAILY 07/01/22 12/16/22 06:00 History mcg (1,000 unit) capsule (Vitamin D3) multivitamin 1 tab PO DAILY 07/01/22 12/16/22 06:00 History quetiapine 25 mg tablet 25 mg PO QHS 11/13/22 Unknown History mesalamine 400 mg capsule (with 800 mg (2 x 400 mg) PO BID #120 ea 07/05/23 Unknown Rx delayed release tablets inside) metronidazole 500 mg tablet 500 mg PO Q6H #40 tabs 07/05/23 Unknown Rx cyclobenzaprine 10 mg tablet 10 mg PO TID PRN Muscle Spasm #20 03/11/24 Unknown Rx TABLETS naproxen 500 mg tablet (Naprosyn) 500 mg PO BID PRN pain #20 tabs 12/20/23 Unknown Rx cyclobenzaprine 10 mg tablet 10 mg PO HS PRN muscle spasm #14 08/08/24 Unknown Rx tabs prednisone 10 mg tablet 10 mg PO DAILY #30 tabs 08/08/24 Unknown Rx Allergy/AdvReac Type Severity Reaction Status Date / Time Penicillins (PCN) Allergy Other Verified 09/07/24 19:57 Family History Mother Asthma Cancer Father Hypertension Ulcer Brother Diabetes Surgical History History of incisional hernia repair History of carpal tunnel surgery of right wrist History of resection of small bowel History of colonoscopy (~2012) History of colonoscopy (~2015) History of carpal tunnel release (~2021) Social History Smoking Status: Never smoker EXAM Physical Exam Const Vital Signs: 09/07/24 19:58 Temperature 98.7 F Temperature Source Oral Pulse Rate 96 Respiratory Rate 16 Blood Pressure 127/84 H Blood Pressure Mean 98 Pulse Ox 97 Oxygen Delivery Method Room Air MDM MDM MDM Narrative Medical decision making narrative: 54-year-old male presents for evaluation of laceration to the base of the right dorsal thumb. Onset of injury over 24 hours ago. Suture repair not offered given that the wound has been open for 24 hours and closure will increase infection. Patient was educated that wound needs to heal by secondary intention. Was educated on keeping it clean with soap and water as well as dry. Monitor for signs of infection. Neosporin or bacitracin as needed. Follow-up with PCP. Wound was dressed. Given his unknown tetanus, this was updated. Patient is stable to discharge home. He confirmed understanding. Impression: 1. 2 cm laceration to the base of the right dorsal forearm Discharge Plan Triage Chief Complaint: Laceration ED Provider: Raffaele Webb Dx/Rx/DC Orders Clinical Impression: Hand laceration Instructions: ED Laceration, Old: Not Sutured Prescriptions: No Action omeprazole 20 mg tablet,delayed release (DR/EC) 20 mg PO PRN PRN (Reason: GERD) Patient Comments: TAKE 1 TABLET BY MOUTH EVERY DAY quetiapine 25 mg tablet 25 mg PO QHS Patient Comments: take 1 or 2 tablets by oral route at bedtime. prednisone 10 mg tablet 10 mg PO DAILY Qty: 30 0RF Rx Instructions: 4 tablets daily x3 days, then 3 tablets daily x3 days, then 2 tablets daily x3 days, then 1 tablet daily x3 days cyclobenzaprine 10 mg tablet 10 mg PO HS PRN (Reason: muscle spasm) Qty: 14 0RF multivitamin Tablet 1 tab PO DAILY cholecalciferol (vitamin D3) [Vitamin D3] 25 mcg (1,000 unit) Capsule 25 mcg PO DAILY metronidazole [metronidazole] 500 mg tablet 500 mg PO Q6H Qty: 40 0RF mesalamine 400 mg capsule (with del rel tablets) 800 mg PO BID Qty: 120 1RF naproxen [Naprosyn] 500 mg tablet 500 mg PO BID PRN (Reason: pain) Qty: 20 0RF cyclobenzaprine 10 mg tablet 10 mg PO TID PRN (Reason: Muscle Spasm) Qty: 20 0RF Primary Care Provider: Magda Yarbrough Referrals: Magda Yarbrough MD [Primary Care Provider] - 3-5 Days Activity Restrictions/Additional Instructions: Use open water to clean. Monitor for signs of infection. Follow-up with physician. Print Language: Filipino Disposition Disposition: Home, Self Care Discharge Date/Time: 09/07/24 21:45
[2024-09-07] MEDS: Diphth,Pertuss(Acell),Tet Vac 0.5 ML Vial IM (21:19)
== END 2024-09-07 21:45 | disposition home or self-care (01) ==
PROVIDERS: Emergency Provider Surgery; PCP Family Medicine; Visit Provider Surgery
DX: S61.011A Laceration without foreign body of right thumb without damage to nail, initial encounter (principal); X58.XXXA Exposure to other specified factors, initial encounter; Y93.89 Activity, other specified; Z23 Encounter for immunization
CPT/HCPCS: 90471; 90715; 99282

== ENCOUNTER 2024-10-01 13:22 | Emergency (ER) | payer BC, SELFPAY ==
[2024-10-01 13:23] VITALS: BP 130/80; PULSE 121; RESP 20; TEMP 36.2; O2SAT 99; BMI 26.3
--- NOTE | 2024-10-01 13:27 | ED.VIS.GI ---
HPI HPI - GI History of Present Illness Chief Complaint: Abd Pain Informant: patient Abdominal Pain/Flank Pain Onset: Yesterday Context: Sudden Onset Timing: Continuous Quality: Cramping Location: Diffuse Worsened by: Nothing Relieved by: Nothing Nausea/Vomiting/Emesis GI Symptom: Positive for Nausea and Vomiting Quality: Positive for Nonbilious; Negative for Blood streaks, Coffee ground or Hematemesis Diarrhea/Melena/Hematochezia GI Symptom: Positive for Diarrhea; Negative for Melena or Hematochezia Associated Symptoms Associated Symptoms: Negative for Dysuria, Frequency or Hematuria Narrative Narrative: Patient presents with abdominal pain that began yesterday after work. Patient states he went to work yesterday and when he got home he started having abdominal pain. Patient describes it as cramping. Patient states it is diffuse across his entire abdomen. Patient states nothing makes it better and nothing makes it worse. Patient admits to some nausea and vomiting. Patient denies any hematemesis or coffee-ground emesis. Patient admits to some diarrhea but denies any melena or hematochezia. Patient states he does have a history of Crohn's disease. Patient denies any urinary complaints. [facility] Medical History Lumbar radiculopathy Lumbar strain Diastasis recti Schizophrenia Bipolar 1 disorder Wears glasses History of steroid therapy Arthritis High cholesterol Injury of back Non-smoker Right carpal tunnel syndrome Anger Anxiety Depression Crohn disease Home Medications ?Medication ?Instructions ?Recorded ?Last Taken ?Type omeprazole 20 mg tablet,delayed 20 mg PO PRN PRN GERD 06/11/22 Unknown History release cholecalciferol (vitamin D3) 25 25 mcg PO DAILY 07/01/22 12/16/22 06:00 History mcg (1,000 unit) capsule (Vitamin D3) multivitamin 1 tab PO DAILY 07/01/22 12/16/22 06:00 History quetiapine 25 mg tablet 25 mg PO QHS 11/13/22 Unknown History mesalamine 400 mg capsule (with 800 mg (2 x 400 mg) PO BID #120 ea 07/05/23 Unknown Rx delayed release tablets inside) metronidazole 500 mg tablet 500 mg PO Q6H #40 tabs 07/05/23 Unknown Rx cyclobenzaprine 10 mg tablet 10 mg PO TID PRN Muscle Spasm #20 12/20/23 Unknown Rx TABLETS naproxen 500 mg tablet (Naprosyn) 500 mg PO BID PRN pain #20 tabs 12/20/23 Unknown Rx cyclobenzaprine 10 mg tablet 10 mg PO HS PRN muscle spasm #14 08/08/24 Unknown Rx tabs prednisone 10 mg tablet 10 mg PO DAILY #30 tabs 08/08/24 Unknown Rx ondansetron 4 mg disintegrating 4 mg PO Q8H PRN PRN Nausea #10 tabs 10/01/24 Unknown Rx tablet prednisone 20 mg tablet 60 mg (3 x 20 mg) PO DAILY #15 10/01/24 Unknown Rx TABLETS Allergy/AdvReac Type Severity Reaction Status Date / Time Penicillins (PCN) Allergy Other Verified 10/01/24 13:23 Family History Mother Asthma Cancer Father Hypertension Ulcer Brother Diabetes Surgical History History of incisional hernia repair History of carpal tunnel surgery of right wrist History of resection of small bowel History of colonoscopy (~2012) History of colonoscopy (~2015) History of carpal tunnel release (~2021) Social History Smoking Status: Former smoker ROS ROS ED Constitutional Constitutional ED: Reports sweats; Denies chills or fever(s) Eyes Eyes: Reports blurry vision ENT ENT ED: Denies rhinorrhea or sore throat Cardiovascular Cardiovascular: Reports chest pain; Denies palpitations Respiratory/Chest Respiratory/Chest: Denies cough or dyspnea Gastrointestinal Gastrointestinal: Reports nausea and vomiting Genitourinary Genitourinary ED: Denies dysuria or hematuria Musculoskeletal Musculoskeletal: Denies back pain or neck pain Integumentary Denies abscess or rash Neurologic Neurologic: Reports headache(s); Denies weakness Allergic/Immunologic Allergic/Immunologic ED: Denies mouth swelling or urticaria EXAM Physical Exam Const Vital Signs: 10/01/24 13:23 10/01/24 15:22 Temperature 97.2 F L Temperature Source Temporal Pulse Rate 121 H 94 Respiratory Rate 20 H 16 Blood Pressure 130/80 H 120/73 Blood Pressure Mean 96 88 Pulse Ox 99 96 Oxygen Delivery Method Room Air Room Air Positive well nourished and well developed General Appearance ED: well developed and NAD HEENT Reports moist mucous membranes Neck supple and no JVD Resp normal respiratory effort and clear to auscultation bilaterally Cardio regular rhythm Rate: tachycardic GI non-distended Palpation: soft and tender epigastric, LLQ, RLQ, LUQ, RUQ, periumbilical and suprapubic; Negative for guarding or rebound tenderness present Back/Spine no CVA tenderness Extremity full ROM Neuro CN's II-XII intact bilaterally, moves all extremities and no sensory deficits noted Sensorium / Orientation: alert Motor Exam: strength 5/5 throughout Psych mental status grossly normal and thought process normal MDM MDM MDM Narrative Medical decision making narrative: Differential diagnosis includes gastroenteritis, viral illness, Crohn's exacerbation, peptic ulcer disease, duodenal ulcer, cholecystitis, cholelithiasis, pancreatitis, and dehydration. CBC will be obtained to assess for leukocytosis and anemia. Comprehensive metabolic profile will be obtained to assess for electrolyte abnormality, hepatic function, and renal function. Lipase will be obtained to assess for pancreatitis. Urinalysis will be obtained to assess for urinary tract infection and hematuria. CT scan of the abdomen and pelvis will be obtained to assess for pancreatitis, colitis, diverticulitis, and cholecystitis. Lab Data Attestation: I reviewed the patient's lab results. Lab results narrative: CBC was reviewed. There is a mild leukocytosis of 13.2. Platelets were slightly elevated at 553. The remainder is within normal limits. Comprehensive metabolic profile was reviewed. Glucose was slightly elevated at 166. The remainder was essentially within normal limits. Lipase was reviewed and was normal at 32. Urinalysis was reviewed. There is no evidence of urinary tract infection or hematuria. Labs: Laboratory Results - last 24 hr 10/01/24 10/01/24 13:55 15:30 WBC 13.2 H RBC 5.58 Hgb 16.1 Hct 50.7 MCV 90.9 MCH 28.9 MCHC 31.8 L RDW Std Deviation 43.6 RDW Coeff of Manuel 13.0 Plt Count 553 H MPV 10.3 Immature Gran % (Auto) 0.400 Neut % (Auto) 89.3 H Lymph % (Auto) 4.9 L [place] % (Auto) 4.5 Eos % (Auto) 0.5 Baso % (Auto) 0.4 Absolute Neuts (auto) 11.8 H Absolute Lymphs (auto) 0.65 L Nucleated RBC % 0 Sodium 136 Potassium 4.9 Chloride 105 Carbon Dioxide 22.0 Anion Gap 9 BUN 26 H Creatinine 1.06 Estim Creat Clear Calc 75.35 Est GFR (MDRD) Af Amer 94 Est GFR (MDRD) Non-Af 78 BUN/Creatinine Ratio 24.5 H Glucose 166 H Calcium 10.7 H Total Bilirubin 0.60 AST 13 L ALT 49 Alkaline Phosphatase 108 Total Protein 9.7 H Albumin 4.6 Globulin 5.1 H Albumin/Globulin Ratio 0.9 Lipase 32 Urine Color Yellow Urine Clarity Clear Urine pH 5.0 Ur Specific [place] 1.010 Urine Protein 15 H Urine Glucose (UA) Normal Urine Ketones Negative Urine Occult Blood Negative Urine Nitrite Negative Urine Bilirubin Negative Urine Urobilinogen Normal Ur Leukocyte Esterase Negative Radiography Diagnostic Testing: Clinical Impression(s) from Imaging Studies Abdomen/Pelvis CT 10/01/24 13:48 IMPRESSION: (NOT LISTED IN ORDER OF SIGNIFICANCE) Wall thickening and inflammation of the terminal ileum suggesting terminal ileitis. Other findings as above. Electronically Signed: Rachid Olivares MD at 14:59 EST , CT scan of the abdomen pelvis was obtained. There is wall thickening and inflammation of the terminal ileum suggesting terminal ileitis consistent with Crohn's disease. This was interpreted by the radiologist and was also independently reviewed by myself. Treatment and Re-Evaluation :: Patient was given IV fluids, morphine, and Zofran. Patient was feeling better on reevaluation. Patient was advised of his findings. Patient was given a prescription for prednisone and Zofran. Patient was instructed to start with a liquid diet and advance as tolerated. Patient was instructed to follow-up with his primary care physician in 5 to 7 days. Patient was instructed to return if worse in any way. Patient and family understood and were agreeable with the plan. All questions were answered. Discharge Plan Triage Chief Complaint: Abd Pain ED Provider: Saqib Kuhn Dx/Rx/DC Orders Clinical Impression: Abdominal pain, Crohn's disease Instructions: ED Crohn's Disease Prescriptions: New prednisone 20 mg tablet 60 mg PO DAILY Qty: 15 0RF ondansetron 4 mg tablet,disintegrating 4 mg PO Q8H PRN PRN (Reason: Nausea) Qty: 10 0RF No Action omeprazole 20 mg tablet,delayed release (DR/EC) 20 mg PO PRN PRN (Reason: GERD) Patient Comments: TAKE 1 TABLET BY MOUTH EVERY DAY quetiapine 25 mg tablet 25 mg PO QHS Patient Comments: take 1 or 2 tablets by oral route at bedtime. prednisone 10 mg tablet 10 mg PO DAILY Qty: 30 0RF Rx Instructions: 4 tablets daily x3 days, then 3 tablets daily x3 days, then 2 tablets daily x3 days, then 1 tablet daily x3 days cyclobenzaprine 10 mg tablet 10 mg PO HS PRN (Reason: muscle spasm) Qty: 14 0RF multivitamin Tablet 1 tab PO DAILY cholecalciferol (vitamin D3) [Vitamin D3] 25 mcg (1,000 unit) Capsule 25 mcg PO DAILY metronidazole [metronidazole] 500 mg tablet 500 mg PO Q6H Qty: 40 0RF mesalamine 400 mg capsule (with del rel tablets) 800 mg PO BID Qty: 120 1RF naproxen [Naprosyn] 500 mg tablet 500 mg PO BID PRN (Reason: pain) Qty: 20 0RF cyclobenzaprine 10 mg tablet 10 mg PO TID PRN (Reason: Muscle Spasm) Qty: 20 0RF Primary Care Provider: Magda Yarbrough Referrals: Magda Yarbrough MD [Primary Care Provider] - 5-7 Days Print Language: [place]se Disposition Disposition: Home, Self Care
--- NOTE | 2024-10-01 13:48 | CT_ITS ---
STUDY: CT Abdomen And Pelvis W/ Contrast Injection 10/01/2024 2:57 PM REASON FOR EXAM: Male, 54 years old. ABDOMINAL PAIN Abdominal pain TECHNIQUE: Transaxial images were obtained without oral contrast, and IV 100mL [id number]-370 intravenous contrast. Individualized dose optimization techniques were used for this CT. COMPARISON: 8.924 FINDINGS: The visualized lung bases are unremarkable. The visualized portions of the heart are within normal limits. Unremarkable liver. Unremarkable gallbladder and extrahepatic biliary system. Unremarkable spleen. Unremarkable pancreas. Unremarkable bilateral adrenal glands. No acute findings of the right kidney. No acute findings of the left kidney. Unremarkable visualized stomach. Wall thickening and inflammation of the terminal ileum suggesting terminal ileitis. There are multiple colonic diverticula consistent with diverticulosis. There is non-visualization of the appendix. There are no acute findings of the abdominal aorta. Unremarkable inferior vena cava. Subcentimeter mesenteric lymph nodes. Unremarkable urinary bladder. There is a left-sided inguinal hernia containing adipose tissue. There are diffuse degenerative changes of the visualized lumbar spine. CT/Abdomen/Pelvis W IV Cont ONLY IMPRESSION: (NOT LISTED IN ORDER OF SIGNIFICANCE) Wall thickening and inflammation of the terminal ileum suggesting terminal ileitis. Other findings as above. Electronically Signed: Rachid Olivares MD at 14:59 EST ,
[2024-10-01] MEDS: Ondansetron 4 MG/2 ML Vial IV (13:56)
[2024-10-01] MEDS: 0.9% Normal Saline (1000mL) 1,000 ML 999 ML IV (13:56)
[2024-10-01] MEDS: Morphine 4 MG/ML Syringe IV (13:57)
[2024-10-01 14:19] LABS: Absolute Lymphocyte Count 0.65 X10^3/uL (0.83-4.51); Absolute Neutrophil Count 11.8 X10^3/uL (2.0-7.7); Basophil# 0.05 X10^3/uL; Basophil% 0.4 % (0-1); Eosinophil# 0.06 X10^3/uL; Eosinophils% 0.5 % (0-5); Hematocrit 50.7 % (40-54); Hemoglobin 16.1 g/dL (13.0-16.5); Lymphocyte # 0.65 X10^3/ul (0.83-4.51); Lymphocyte % 4.9 % (19-41); Mean Corp Hgb Conc 31.8 g/dL (32-36); Mean Corpuscular Hgb 28.9 pg (27.0-32.0); Mean Corpuscular Volume 90.9 fL (80-94); Mean Platelet Vol. 10.3 fl (6.2-12.0); Monocyte% 4.5 % (0-10); NRBC Flagged by Analyzer 0 % (0-5); Neutrophil # 11.81 X10^3/uL (2.7-7.7); Neutrophil % 89.3 % (47-70); Platelet Count 553 K/mm3 (150-450); RBC Distribution Width SD 43.6 fl (35.1-43.9); Red Blood Count 5.58 M/mm3 (4.6-6.2); White Blood Count 13.2 K/mm3 (4.4-11.0)
[2024-10-01 14:36] LABS: ALB/GLOB Ratio 0.9 RATIO (0.9-2.4); AST(SGOT) 13 U/L (15-37); Alanine Aminotransfer ALT/SGPT 49 U/L (16-61); Albumin, Serum 4.6 g/dL (3.2-5.0); Alkaline Phosphatase 108 U/L (45-117); Anion Gap 9 (5-15); BUN 26 mg/dL (7-18); BUN/Creat Ratio 24.5 RATIO (10-20); Calcium,Total 10.7 mg/dL (8.5-10.1); Chloride 105 mmol/L (98-107); Creatinine, Serum 1.06 mg/dL (0.70-1.30); EST Glomerular Filtration Rate 78 mL/min (>60); Est Glom Filt Rate - Afr Amer 94 mL/min (>60); Estimated Creatinine Clearance 75.35 ml/min; Globulin 5.1 g/dL (2.2-4.2); Glucose 166 mg/dL (74-106); Lipase 32 U/L (13-75); Potassium 4.9 mmol/L (3.5-5.1); Protein, Total 9.7 g/dL (6.4-8.2); Sodium Level 136 mmol/L (136-145)
[2024-10-01 15:22] VITALS: BP 120/73; PULSE 94; RESP 16; O2SAT 96
[2024-10-01 15:35] LABS: Bacteria 0 SEEN /hpf (None Seen); Mucous, Urine 0 SEEN /hpf (<or=2+); Red Blood Cells-Urine 0 SEEN /hpf (0-5); Squamous Epithelial Cells - UA 0 SEEN /hpf (0-5); White Blood Cells 0 SEEN /hpf (0-5)
[2024-10-01 15:37] LABS: Color, Urine Yellow (Yellow); Glucose, Dipstick Normal (Normal); Ketone-Dipstick Negative (Negative); Leukocyte Esterase-Dipstick Negative /ul (Negative); Nitrite-Dipstick Negative (Negative); Occult Blood-Urine Negative /ul (Negative); Protein-Dipstick 15 mg/dl (Negative); Urine Bilirubin Dipstick Negative (Negative); Urine Clarity Clear (Clear); Urine Urobilinogen Normal (Normal)
== END 2024-10-01 16:04 | disposition home or self-care (01) ==
PROVIDERS: Emergency Provider Emergency Medicine; PCP Family Medicine; Visit Provider Emergency Medicine
DX: K50.00 Crohn's disease of small intestine without complications (principal); Z87.891 Personal history of nicotine dependence
CPT/HCPCS: 74177; 80053; 81001; 83690; 85025; 96361; 96374; 96375; 99283; Q9967; A4216; J2405

== ENCOUNTER → 2024-11-16 | Outpatient (CLI) | payer MEDICAID, SELFPAY ==
[2024-11-16 16:33] LABS: Absolute Neutrophil Count 7.5 X10^3/uL (2.0-7.7); Basophil# 0.02 X10^3/uL; Basophil% 0.2 % (0-1); Eosinophil# 0.03 X10^3/uL; Eosinophils% 0.4 % (0-5); Hematocrit 41.8 % (40-54); Hemoglobin 13.5 g/dL (13.0-16.5); Lymphocyte % 8.2 % (19-41); Mean Corp Hgb Conc 32.3 g/dL (32-36); Mean Corpuscular Hgb 29.3 pg (27.0-32.0); Mean Corpuscular Volume 90.7 fL (80-94); Mean Platelet Vol. 9.8 fl (6.2-12.0); Monocyte# 0.26 X10^3/uL; NRBC Flagged by Analyzer 0 % (0-5); Neutrophil % 87.6 % (47-70); Platelet Count 480 K/mm3 (150-450); RBC Distribution Width CV 12.6 % (11.6-14.6); RBC Distribution Width SD 41.6 fl (35.1-43.9); Red Blood Count 4.61 M/mm3 (4.6-6.2); White Blood Count 8.6 K/mm3 (4.4-11.0)
[2024-11-16 17:22] LABS: ALB/GLOB Ratio 0.9 RATIO (0.9-2.4); AST(SGOT) 15 U/L (15-37); Alanine Aminotransfer ALT/SGPT 66 U/L (16-61); Albumin, Serum 3.8 g/dL (3.2-5.0); Alkaline Phosphatase 95 U/L (45-117); Anion Gap 7 (5-15); BUN 17 mg/dL (7-18); BUN/Creat Ratio 19.2 RATIO (10-20); Calcium,Total 8.9 mg/dL (8.5-10.1); Chloride 107 mmol/L (98-107); Creatinine, Serum 0.89 mg/dL (0.70-1.30); EST Glomerular Filtration Rate 95 mL/min (>60); Est Glom Filt Rate - Afr Amer 115 mL/min (>60); Free T3 2.8 pg/mL (2.18-3.98); Globulin 4.1 g/dL (2.2-4.2); Glucose 134 mg/dL (74-106); Potassium 4.3 mmol/L (3.5-5.1); Protein, Total 7.9 g/dL (6.4-8.2); Sodium Level 136 mmol/L (136-145); T4 Free Direct 1.08 ng/dL (0.76-1.46); Thyroid Stim Hormone (TSH) 0.396 uIU/mL (0.358-3.740)
[2024-11-16 17:26] LABS: Erythrocyte Sedimentation Rate 34 mm/hr (0-20)
== END | disposition home or self-care (01) ==
LOC: LAB 15:53
PROVIDERS: PCP Family Medicine; Referring Provider Student in an Organized Health Care Education/Training Program; Visit Provider Student in an Organized Health Care Education/Training Program
DX: R19.7 Diarrhea, unspecified (principal)
CPT/HCPCS: 36415; 80053; 84439; 84443; 84481; 85025; 85652; 86140

== ENCOUNTER → 2024-11-17 | Outpatient (CLI) | payer MEDICAID, SELFPAY ==
[2024-11-20 01:07] LABS: Pancreatic Elastase, Fecal 191 (>200)
[2024-11-21 09:07] LABS: Calprotectin, Stool 926 ug/g (0-120)
== END | disposition home or self-care (01) ==
LOC: LAB 10:14
PROVIDERS: PCP Family Medicine; Referring Provider Student in an Organized Health Care Education/Training Program; Visit Provider Student in an Organized Health Care Education/Training Program
DX: K58.9 Irritable bowel syndrome, unspecified (principal); R19.7 Diarrhea, unspecified
CPT/HCPCS: 82653; 83993; 87177; 87209; 87329; 87493; 87506

== ENCOUNTER 2024-11-23 12:26 | Day surgery (SDC) | payer MEDICAID, SELFPAY ==
[2024-11-23] VITALS (9 sets, daily range): BP systolic 94–123; BP diastolic 62–76; PULSE 69–76; RESP 16; TEMP 36.3–37.2; O2SAT 95–99; BMI 25.9
--- NOTE | 2024-11-23 13:15 | EGD_PTH ---
PATIENT: LASHONDA RAMOS Jr. LOC: EN U#:[id number] AGE/SX: 54/M ROOM: RE11/23/[address]: Dr. Axel Nevarez DO : 1970 BED: DIS: 11/23/2024 SPEC #: [id number] RECD: 11/23/24 14:27 STATUS: CHYNA MAGGIE #: [id number] VINNY: 11/23/24 13:[address]: Axel Nevarez DEPT: SURGICAL PATHOLOGY RECD BY: Brenda Vidal ENTERED: 11/24/24 08:23 SP TYPE: EGD BIOPSY OT DR: Magda Yarbrough MD Tissues: A - Duodenum, NOS B - Gastric mucous membrane C - Ileum, NOS Procedures: Surgery Specimen Level IV HEADER OPERATION: Colonoscopy, EGD, biopsy PRE-OP DIAGNOSIS: Heartburn, diarrhea TISSUE SUBMITTED: A- Duodenum biopsy, B- Gastric antrum biopsy, C- Ileum biopsy MICROSCOPIC DIAGNOSIS A. 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 Focal villous blunting. No significant increase in intraepithelial lymphocytes, not suggestive of Celiac disease. See comment. B. Gastric antrum, biopsy: Gastric mucosa with focal erosive gastritis with focal acute and chronic inflammation. See comment. C. Ileum, biopsy: Focal chronic active ileitis with focal erosion, ulceration , and granulation tissue formation. See comment. 11/27/2024 COMMENT A. The duodenal biopsy shows focal villous blunting and although the changes seen are more suggestive of peptic duodenitis with gastric metaplasia, and Celiac disease is not in evidence as there is no significant increase in intraepithelial lymphocytes, clinical correlation is necessary and if clinically helpful serology if clinically indicated may be helpful if Celiac is considered in the diagnosis clinically. B. The results of immunohistochemistry for Helicobacter pylori will be reported separately ([id number]). C. The ileal biopsy shows focal acute ileitis with erosion. The clinical history of Crohn's disease is noted. The changes seen in the ileal biopsy would be consistent with inflammatory bowel disease. Definitive granulomata are not identified. Clinical correlation is necessary. MICROSCOPIC DESCRIPTION Slides are reviewed. GROSS DESCRIPTION A. Received in fixative is one container labeled with the patient's name and designated Duodenum biopsy. The specimen consists of one irregular fragment of light pulido soft tissue that measures 0.4 x 0.2 x 0.1 cm. The specimen is totally submitted in one cassette. B. Received in fixative is one container labeled with the patient's name and designated Gastric antrum biopsy. The specimen consists of one irregular fragment of light pulido soft tissue that measures 0.4 x 0.4 x 0.1 cm. The specimen is totally submitted in one cassette. C. Received in fixative is one container labeled with the patient's name and designated Ileum biopsy. The specimen consists of multiple irregular fragments of light pulido soft tissue that in aggregate measure 1.4 x 0.5 x 0.1 cm. The specimen is totally submitted in one cassette. MS/mr 11/24/2024 TC:3 CPT:99962v0
--- NOTE | 2024-11-23 13:15 | IMM_PTH ---
PATIENT: LASHONDA RAMOS Jr. LOC: EN U#:[id number] AGE/SX: 54/M ROOM: RE11/23/[address]: Dr. Axel Nevarez DO : 1970 BED: DIS: 11/23/2024 SPEC #: [id number] RECD: 11/24/24 08:42 STATUS: CHYNA REJany #: [id number] VINNY: 11/23/24 13:[address]: Axel Nevarez DEPT: IMMUNOHISTOCHEMISTRY RECD BY: Rashad Clarke ENTERED: 11/24/24 08:42 SP TYPE: IMMUNO OTHR DR: Magda Yarbrough MD Tissues: B - Gastric mucous membrane Procedures: H Pylori (initial) PHYSICIAN & INSTITUTION [place] [id number] SPECIMEN INFORMATION: Tissue Source: B- Gastric antrum biopsy Clinical Info: Heartburn, diarrhea Specimen Number: [id number] CPT code: 28172 METHODOLOGY: Deparaffinized sections of prefer/formalin-fixed tissue or PAP/DQ stained slides are incubated with monoclonal/polyclonal antibodies/oligonucleotide probes. Localization is made via biotin free immunoperoxidase method. Appropriate controls are performed and reacted as expected. Results on target cell population are indicated in the following table: RESULTS: ANTIBODY / CLONE RESULT Block B H Pylori (polyclonal) negative These tests were developed and their performance characteristics determined by [facility]. They may not have been cleared or approved by the U.S. Food and Drug Administration. The FDA has determined that such clearance or approval is not necessary. The above immunohistochemical/dualISH markers are ordered and reviewed by the Pathologist. INTERPRETATION: B. Gastric antrum, biopsy: Negative for Helicobacter pylori organisms. 11/27/2024
--- NOTE | 2024-11-23 13:34 | PRE.ANES_ITS ---
ASA Classification* ASA Classification ASA Classification: 2 Assessment & Plan Anesthesia* Anesthesia Assessment Anesthesia Assessment: Discussed sedation and/or anesthesia options, risks, benefits, and alternatives with patient/parents/legal guardian/POA. Questions invited. The patient/parents/legal guardian/POA seems to understand and agrees to proceed with anesthesia plan. Reviewed the physical assessment, medical history, allergy history and patient home medications list prior to surgery/procedure/anesthetic and documented any changes. Performed airway and anesthesia risk assessments. Anesthesia Type Anesthesia Type: MAC History Source History Obtained from:: Patient and Chart Anesthesia Focused Assessment* Temperature: 97.9 F Pulse Rate: 76 Blood Pressure: 123/72 Respiratory Rate: 16 Pulse Ox: 99 Oxygen Delivery Method: Room Air Airway Assessment Mouth opens: >3 cm Mallampati Score: II Teeth Condition: Caps/Crowns (Patient believes he has a cap on #8. It is tight. Rest of the teeth are tight.) Neck Range of motion (ROM): Limited ROM (Slight decrease in extension) Focused Labs Anesthesia Preop lab: CBC WBC 8.6 K/mm3 (4.4-11.0) 11/16/24 16:11/16/24 RBC 4.61 M/mm3 (4.6-6.2) 11/16/24 16:11/16/24 Hgb 13.5 g/dL (13.0-16.5) 11/16/24 16:11/16/24 Hct 41.8 % (40-54) 11/16/24 16:11/16/24 Plt Count 480 K/mm3 (150-450) H 11/16/24 16:11/16/24 CHEMISTRY Potassium 4.3 mmol/L (3.5-5.1) 11/16/24 16:11/16/24 Sodium 136 mmol/L (136-145) 11/16/24 16:11/16/24 BUN 17 mg/dL (7-18) 11/16/24 16:11/16/24 Creatinine 0.89 mg/dL (0.70-1.30) 11/16/24 16:11/16/24 Glucose 134 mg/dL (74-106) H 11/16/24 16:11/16/24 TSH 0.396 uIU/mL (0.358-3.740) 11/16/24 16:07 02/04/04 COAG Pre-Assessment Diagnosis/Proposed Procedure Planned Operative Procedure(s): COLONOSCOPY/EGD Anesthesia History Anesthesia History - data analysis intern: Anesthesia History - data analysis intern Hx Hospitalization No 11/21/24 14:09 Any Problems With Anesthesia No 11/21/24 14:09 Cholinesterase deficiency No 11/21/24 14:09 You/Your Family Experience No 11/21/24 14:09 fever (hyperthermia) with Relationship Recent Exposure to Contagious No 11/23/24 12:57 Disease Does patient have nerve No 11/21/24 14:09 stimulator Patient instructed to have device shut off --Does patient have Pacemaker No 11/23/24 12:57 or ICD? When Was Last Pacemaker Check QUESTION #4 FULL TEXT: You/Your Family Experience fever (hyperthermia) with Anesthesia Last Oral Intake Last Oral intake: Last Oral Intake NPO since 06:00 11/23/24 12:57 Meds taken in AM with sips of water? Meds patient instructed to take am of surgery Any additional information?: Yes NPO since: 06:00 (Patient finished prep at 6 AM.) Meds taken in AM with sips of water?: No PONV PONV - data analysis intern: PONV - data analysis intern Female No 11/21/24 14:09 HX of Motion Sickness No 11/21/24 14:09 HX of N/V After Surgery No 11/21/24 14:09 Non-Smoker Yes 11/21/24 14:09 Duration of Surgery greater No 11/21/24 14:09 than 60 minutes Number of Risk Factors 1 11/21/24 14:09 PONV Score Low Risk 11/21/24 14:09 Height & Weight Height & Weight: Anesthesia: Height & Weight Height 5 ft 7 in 11/23/24 12:57 Weight: 75.296 kg 11/23/24 12:57 Body Mass Index (BMI) 25.9 11/23/24 12:57 Respiratory Assessment Respiratory Assessment - data analysis intern: Respiratory Tract Infection Hx - data analysis intern Hx Respiratory Tract Infection No 11/21/24 14:09 STOP Sleep Apnea STOP Sleep Apnea - data analysis intern: STOP Sleep Apnea - data analysis intern Hx Hypertension No 11/21/24 14:09 Hx Sleep Apnea No 11/21/24 14:09 CPAP BIPAP Do you snore loudly (louder No 11/21/24 14:09 than talking or can be heard Do you often feel tired/ No 11/21/24 14:09 fatigued/ sleepy during daytime? Has anyone observed you stop No 11/21/24 14:09 breathing during sleep? STOP Results Negative 11/21/24 14:09 QUESTION #5 FULL TEXT : Do you snore loudly (louder than talking or can be heard through closed doors)? 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 Specify any problems Hx of Preganancy in last 3 N/A 11/21/24 14:09 Months Nurse Filling Out Transfusion VCHRISTIN 11/21/24 14:09 & Questions: Date: 11/21/24 11/21/24 14:09 Time: 14:10 11/21/24 14:09 Patient unable to answer at this time (ie. confused, unrespo /Reproduction History /Reproductive History - data analysis intern: /Reproductive Hx- data analysis intern Hx Now Gestational Age (in weeks): EDC: Hx Hx Para Hx [facility] Medical History Gastric reflux Lumbar radiculopathy Lumbar strain Diastasis recti Schizophrenia Bipolar 1 disorder Wears glasses History of steroid therapy Arthritis High cholesterol Injury of back Non-smoker Right carpal tunnel syndrome Anger Anxiety Depression Crohn disease Home Medications ?Medication ?Instructions ?Recorded ?Last Taken ?Type budesonide 3 mg 3 mg PO QDAY 11/16/24 History capsule,delayed,extended release Allergy/AdvReac Type Severity Reaction Status Date / Time Penicillins (PCN) Allergy Other Verified 11/23/24 12:56 Family History Mother Asthma Cancer Father Hypertension Ulcer Brother Diabetes Surgical History Hx of hernia repair History of incisional hernia repair History of carpal tunnel surgery of right wrist History of resection of small bowel History of colonoscopy (~2012) History of colonoscopy (~2015) History of carpal tunnel release (~2021) Social History household members: none Smoking Status: Former smoker alcohol intake: never Review of Systems (Anesthesia) ROS Narrative System reviewed and no additional complaints, except as documented.
--- NOTE | 2024-11-23 13:39 | PCM.HP.STD ---
HPI - General General Date of Admission: 11/23/24 Date of Service: 11/23/24 Chief Complaint: nausea, vomiting and Crohn's disease HPI Narrative LASHONDA RAMOS, is a 54 M who presents for nausea, vomiting and Crohn's Disease [facility] ED 10.01.24 with cramping abd pain also having some nausea and vomiting. Endorses hx of Crohns disease. Labs revealing elevated wbc 13.2, platelets elevated 553. Given IV fluids, morphine and Zofran. Prescription for prednisone and Zofran and discharged. CT Abd/pelvis 10.01.24; Wall thickening and inflammation of the terminal ileum suggestive of terminal ileitis. Pt has been having issues with daily diarrhea for the past two months. He endorses a PMHx of Crohns disease diagnosed in 2008 after having a blockage that required abd surgery. Since then he has had multiple colonoscopies. He has never seen a GI before and is being treated by his PCP. He tells me he takes prednisone during flares but nothing on a daily basis for treatment. His PCP prescribed prednisone recently but this just made his diarrhea worse. Similarly, Budesonide made his symptoms worse. He endorses a 20 lbs unintentional weight loss over the past 2 months. He is having loose stool soon after eating. He is also having nocturnal diarrhea that wakes him up at night. He has felt feverish but has not checked his temperature. He has not had a colonoscopy in over 10 years. [facility] Medical History Gastric reflux Lumbar radiculopathy Lumbar strain Diastasis recti Schizophrenia Bipolar 1 disorder Wears glasses History of steroid therapy Arthritis High cholesterol Injury of back Non-smoker Right carpal tunnel syndrome Anger Anxiety Depression Crohn disease Home Medications ?Medication ?Instructions ?Recorded ?Last Taken ?Type budesonide 3 mg 3 mg PO QDAY 11/16/24 11/22/24 History capsule,delayed,extended release Allergy/AdvReac Type Severity Reaction Status Date / Time Penicillins (PCN) Allergy Other Verified 11/23/24 12:56 Family History Mother Asthma Cancer Father Hypertension Ulcer Brother Diabetes Surgical History Hx of hernia repair History of incisional hernia repair History of carpal tunnel surgery of right wrist History of resection of small bowel History of colonoscopy (~2012) History of colonoscopy (~2015) History of carpal tunnel release (~2021) Social History household members: none Smoking Status: Former smoker alcohol intake: never ROS Constitutional Constitutional: Denies fatigue, fever(s), poor appetite, weight gain or weight loss Gastrointestinal Gastrointestinal: Denies belching, bloating, change in bowel habits, change in stool character, chewing difficulty, coffee ground emesis, constipation, cramping, diarrhea, dyspepsia, dysphagia, early satiety, excessive flatus, fecal incontinence, heartburn, hematemesis, hematochezia, hemorrhoids, loose stools, melena, nausea, odynophagia, rectal bleeding, tenesmus, vomiting or weight changes Vital Signs Vital Signs Vital Signs: 11/23/24 12:57 11/23/24 12:57 Temperature 97.9 F Temperature Source Temporal Pulse Rate 76 Respiratory Rate 16 Respiratory Pattern Normal Blood Pressure 123/72 H Blood Pressure Mean 89 Blood Pressure Source Monitor Blood Pressure Position Semi-Fowlers Blood Pressure Location Left Arm Pulse Ox 99 Oxygen Delivery Method Room Air Weight Weight: 166 lb Body Mass Index (BMI) 25.9 Physical Exam Const alert, oriented x3, no apparent distress and healthy appearing General Appearance: cooperative GI normal to inspection, nondistended, normoactive bowel sounds, soft to palpation, non-tender and non-distended Percussion: normal to percussion Rectal Exam: deferred Assessment & Plan Assessment/Plan (1) Heartburn: (2) Diarrhea: PLAN: Plan Assessment and Plan Assessment and Plan (1) Abdominal pain: Status: Chronic Plan: THis is a 54 yo male pt here today for evaluation of 2 months of diarrhea. PT has a PMHx of Crohns disease diagnosed in 2008. Pt presented to the ED in [address] showing ileitis. He has not had a colonoscopy in over 10 years. He is not on any treatment for prevention of IBD flares and is just being treated intermittently with steroids from his PCP. He will have blood work and stool testing done today to rule out active infection. He will be scheduled for EGD and colonoscopy for further evaluation of IBD. Will consider treatment with biologic pending these results. -Colonoscopy and EGD -CBC, CMP, ESR and CRP -Calprotectin, c.dif, elastase, enteric path, ova/parasite, Giardia -f/u after procedures (2) Diarrhea: Status: Acute Orders: Orders CRP Today R19.7 - Diarrhea, unspecified Erythrocyte Sed Rate Today R19.7 - Diarrhea, unspecified CBC W/Diff, Automated Today R19.7 - Diarrhea, unspecified Comprehensive Metabolic Profil Today R19.7 - Diarrhea, unspecified Calprotectin, Stool Today R19.7 - Diarrhea, unspecified CDIFF (PCR) Today R19.7 - Diarrhea, unspecified Giardia [place], Stool EIA Today R19.7 - Diarrhea, unspecified Ova and Parasites 8623 Today K58.9 - Irritable bowel syndrome, unspecified, R19.7 - Diarrhea, unspecified Pancreatic Elastase, Fecal Today R19.7 - Diarrhea, unspecified Thyroid Stim Hormone (TSH) Today R19.7 - Diarrhea, unspecified Free T3 Today R19.7 - Diarrhea, unspecified T4 Free Direct Today R19.7 - Diarrhea, unspecified ENTERIC PATHOGEN PANEL STOOL Today K58.9 - Irritable bowel syndrome, unspecified, R19.7 - Diarrhea, unspecified
--- NOTE | 2024-11-23 14:16 | OP.CCLET_ITS ---
11/23/2024 Magda Yarbrough Md Re : Upper GI endoscopy procedure for Emigdio Almonte Dear Zenon This procedure was performed on November. My impressions and recommendations are as follows: Impressions : - Normal esophagus. - Chronic gastritis. Biopsied. - Erythematous duodenopathy. Biopsied. Recommendations : - Discharge patient to home. - Resume previous diet. - Continue present medications. - Await pathology results. My findings are described in the full procedure note, which is enclosed. If I can be of further assistance, please feel free to contact me at . Sincerely, Axel Nevarez, 11/23/2024 2:15:34 PM This report has been signed electronically.
--- NOTE | 2024-11-23 14:16 | OP.EGD_ITS ---
Patient Name: Emigdio Almonte Procedure Date: 11/23/2024 1:51 PM Date of : 1970 Age: 54 Procedure: Upper GI endoscopy Indications: Epigastric abdominal pain Providers: Axel Nevarez DO Medicines: Monitored Anesthesia Care Patient Profile: This is a 54 year old male. Refer to note in patient chart for documentation of history and physical. Patient has symptoms of acute epigastric abdominal pain. Complications: No immediate complications. Procedure: Pre-Anesthesia Assessment: - Prior to the procedure, a History and Physical was performed, and patient medications and allergies were reviewed. The patient is competent. The risks and benefits of the procedure and the sedation options and risks were discussed with the patient. All questions were answered and informed consent was obtained. Patient identification and proposed procedure were verified by the physician in the pre-procedure area. Mental Status Examination: alert and oriented. Airway Examination: normal oropharyngeal airway and neck mobility. Respiratory Examination: clear to auscultation. CV Examination: normal. Prophylactic Antibiotics: The patient does not require prophylactic antibiotics. Prior Anticoagulants: The patient has taken no anticoagulant or antiplatelet agents. ASA Grade Assessment: II - A patient with mild systemic disease. After reviewing the risks and benefits, the patient was deemed in satisfactory condition to undergo the procedure. The anesthesia plan was to use monitored anesthesia care (MAC). Immediately prior to administration of medications, the patient was re-assessed for adequacy to receive sedatives. The heart rate, respiratory rate, oxygen saturations, blood pressure, adequacy of pulmonary ventilation, and response to care were monitored throughout the procedure. The physical status of the patient was re-assessed after the procedure. After obtaining informed consent, the endoscope was passed under direct vision. Throughout the procedure, the patient's blood pressure, pulse, and oxygen saturations were monitored continuously. The Colonoscope was introduced through the mouth, and advanced to the second part of duodenum. The upper GI endoscopy was accomplished without difficulty. The patient tolerated the procedure well. Scope In: 1:57:57 PM Scope Out: 2:00:12 PM Total Procedure Duration Time 0 hours 2 minutes 15 seconds Findings: The examined esophagus was normal. Localized mild inflammation characterized by adherent blood, erosions and erythema was found in the gastric antrum. Biopsies were taken with a cold forceps for histology. Verification of patient identification for the specimen was done. Biopsies were taken with a cold forceps for Helicobacter pylori testing. Verification of patient identification for the specimen was done. Estimated blood loss was minimal. Patchy mildly erythematous mucosa without active bleeding and with no stigmata of bleeding was found in the duodenal bulb. Biopsies were taken with a cold forceps for histology. Verification of patient identification for the specimen was done. Estimated blood loss was minimal. A small hiatal hernia was present. Impression: - Normal esophagus. - Chronic gastritis. Biopsied. - Erythematous duodenopathy. Biopsied. Recommendation: - Discharge patient to home. - Resume previous diet. - Continue present medications. - Await pathology results. Procedure Code(s): --- Professional --- 43013, Esophagogastroduodenoscopy, flexible, transoral; with biopsy, single or multiple CPT copyright 2021 [employer]. All rights reserved. The codes documented in this report are preliminary and upon professor of physics review may be revised to meet current compliance requirements. Axel Nevarez DO 11/23/2024 2:15:34 PM This report has been signed electronically. Number of Addenda: 0 Note Initiated On: 11/23/2024 1:51 PM
--- NOTE | 2024-11-23 14:18 | OP.COLON_ITS ---
Patient Name: Emigdio Almonte Procedure Date: 11/23/2024 2:00 PM Date of : 1970 Age: 54 Procedure: Colonoscopy Indications: Crohn's disease of the small bowel Providers: Axel Nevarez DO Medicines: Monitored Anesthesia Care Patient Profile: This is a 54 year old male. Refer to note in patient chart for documentation of history and physical. Patient has symptoms of acute epigastric abdominal pain. Last Colonoscopy: within the past 3 years. Complications: No immediate complications. Procedure: Pre-Anesthesia Assessment: - Prior to the procedure, a History and Physical was performed, and patient medications and allergies were reviewed. The patient is competent. The risks and benefits of the procedure and the sedation options and risks were discussed with the patient. All questions were answered and informed consent was obtained. Patient identification and proposed procedure were verified by the physician in the pre-procedure area. Mental Status Examination: alert and oriented. Airway Examination: normal oropharyngeal airway and neck mobility. Respiratory Examination: clear to auscultation. CV Examination: normal. Prophylactic Antibiotics: The patient does not require prophylactic antibiotics. Prior Anticoagulants: The patient has taken no anticoagulant or antiplatelet agents. ASA Grade Assessment: II - A patient with mild systemic disease. After reviewing the risks and benefits, the patient was deemed in satisfactory condition to undergo the procedure. The anesthesia plan was to use monitored anesthesia care (MAC). Immediately prior to administration of medications, the patient was re-assessed for adequacy to receive sedatives. The heart rate, respiratory rate, oxygen saturations, blood pressure, adequacy of pulmonary ventilation, and response to care were monitored throughout the procedure. The physical status of the patient was re-assessed after the procedure. After I obtained informed consent, the scope was passed under direct vision. Throughout the procedure, the patient's blood pressure, pulse, and oxygen saturations were monitored continuously. The Colonoscope was introduced through the anus and advanced to the terminal ileum. The colonoscopy was performed without difficulty. The patient tolerated the procedure well. The quality of the bowel preparation was adequate. The terminal ileum, ileocecal valve, appendiceal orifice, and rectum were photographed. Scope In: 2:01:51 PM Scope Withdrawal Time 0 hours 6 minutes 13 seconds Scope Out: 2:10:37 PM Total Procedure Duration Time 0 hours 8 minutes 46 seconds Findings: The perianal and digital rectal examinations were normal. Multiple small-mouthed diverticula were found in the recto-sigmoid colon, sigmoid colon and descending colon. There was evidence of a prior end-to-side ileo-colonic anastomosis in the ascending colon. This was non-patent and was characterized by edema, erosion, erythema and ulceration. The anastomosis was not traversed. These biopsies were obtained randomly (in a non-targeted manner) for evaluation of inflammatory bowel disease. Impression: - Diverticulosis in the recto-sigmoid colon, in the sigmoid colon and in the descending colon. - Non-patent end-to-side ileo-colonic anastomosis, characterized by edema, erosion, erythema and ulceration. - No specimens collected. Recommendation: - Discharge patient to home. - Resume previous diet. - Continue present medications. - Await pathology results. - Repeat colonoscopy in 1 year to assess disease activity. Procedure Code(s): --- Professional --- 29709, Colonoscopy, flexible; diagnostic, including collection of specimen(s) by brushing or washing, when performed (separate procedure) CPT copyright 2021 [employer]. All rights reserved. The codes documented in this report are preliminary and upon him coder review may be revised to meet current compliance requirements. Axel Nevarez DO 11/23/2024 2:18:16 PM This report has been signed electronically. Number of Addenda: 0 Note Initiated On: 11/23/2024 2:00 PM
--- NOTE | 2024-11-23 14:19 | OP.CCLET_ITS ---
11/23/2024 Magda Yarbrough Md Re : Colonoscopy procedure for Emigdio Qureshi Zenon This procedure was performed on November. My impressions and recommendations are as follows: Impressions : - Diverticulosis in the recto-sigmoid colon, in the sigmoid colon and in the descending colon. - Non-patent end-to-side ileo-colonic anastomosis, characterized by edema, erosion, erythema and ulceration. - No specimens collected. Recommendations : - Discharge patient to home. - Resume previous diet. - Continue present medications. - Await pathology results. - Repeat colonoscopy in 1 year to assess disease activity. My findings are described in the full procedure note, which is enclosed. If I can be of further assistance, please feel free to contact me at . Sincerely, Axel Nevarez, 11/23/2024 2:18:16 PM This report has been signed electronically.
--- NOTE | 2024-11-23 14:21 | PCM.POST.ANE ---
Anesthesia: Postop Eval I Current Vital Signs Temperature: 97.3 F Pulse Rate: 74 Blood Pressure: 94/62 Respiratory Rate: 16 Pulse Ox: 97 Oxygen Delivery Method: Room Air Assessment Airway patent: Yes Spontaneous unlabored respirations: Yes Mental status: Asleep nausea: No Vomiting: No Anesthesia Complication: No Fluid Hydration Crystalloid volume administer (ml): 60 Total IV fluid infused: 60 Progress Note Anesthesia document: Postop Eval 1 completed: Yes
--- NOTE | 2024-11-23 18:29 | PCM.POSTANE2 ---
Anesthesia Postop Eval I Sum Postop Eval Completion status Anesthesia document: Postop Eval 1 completed: Yes Anesthesia Postop Eval I Summary Anesthesia Postop Eval I Summary: Anesthesia Postop Eval I: Assessment Summary Airway patent Yes 11/23/24 14:24 [email or web address] Spontaneous unlabored Yes 11/23/24 14:24 [email or web address] respirations Mental status Asleep 11/23/24 14:24 [email or web address] nausea No 11/23/24 14:24 [email or web address] Vomiting No 11/23/24 14:24 [email or web address] Anesthesia Postop Eval I: Fluid Summary Crystalloid volume administer 60 11/23/24 14:24 [email or web address] (ml) Colloids volume administered ( ml) Blood Product volume administered (ml) Total IV fluid infused 60 11/23/24 14:24 [email or web address] Anesthesia Postop Eval I: Summary Notes Anesthesia Complication No 11/23/24 14:24 [email or web address] Anesthesia Complication Comment: Post-operative progress note Anesthesia: Postop Eval II Evaluation Mental status: Awake and Calm Pain Level: 0 nausea: No Vomiting: No Complications Anesthesia Complication: No
== END 2024-11-23 15:45 | disposition home or self-care (01) ==
PROVIDERS: PCP Family Medicine; Referring Provider Family Medicine; Visit Provider Internal Medicine Gastroenterology
PROC: 0DJD8ZZ Inspection of Lower Intestinal Tract, Via Natural or Artificial Opening Endoscopic (ICD-10-PCS; CPT 45378; principal; 2024-11-23 13:10)
DX: K29.00 Acute gastritis without bleeding (principal); K50.00 Crohn's disease of small intestine without complications; K29.80 Duodenitis without bleeding; K57.30 Diverticulosis of large intestine without perforation or abscess without bleeding; K44.9 Diaphragmatic hernia without obstruction or gangrene; G89.29 Other chronic pain; Z98.0 Intestinal bypass and anastomosis status; Z87.891 Personal history of nicotine dependence
CPT/HCPCS: 43239; 45380; 88305; 88342; A4216; J2405

== ENCOUNTER 2024-12-01 17:45 | Outpatient (CLI) | payer MEDICAID, SELFPAY ==
--- NOTE | 2024-12-01 17:50 | CT_ITS ---
PROCEDURE: CT ABDOMEN AND PELVIS WITH INTRAVENOUS CONTRAST REASON FOR EXAM: Recent abdominal pain and cramping. History of bowel resection. TECHNIQUE: Contiguous axial scans of mm slice thicknesses. Sagittal and coronal reconstruction images were obtained. One or more dose reduction techniques were used (e.g., automated exposure control, adjustment of mA and/or kv according to patient size, use of iterative reconstruction technique). IV CONTRAST: Isovue 370. 98 mL. COMPARISON: CT abdomen and pelvis dated 10/01/2024 FINDINGS: Lung bases: Mild cystic changes in the lower lobes. Liver: Unremarkable. Gallbladder: Small radiopaque density in the dependent gallbladder. Spleen: Unremarkable. Pancreas: Unremarkable. Adrenals: Unremarkable. Kidneys: Unremarkable. Bladder: Unremarkable. Reproductive Organs: Unremarkable. Bowel: Status post distal ileal resection and: Reanastomosis. Anastomotic site is patent. Marked wall thickening and inflammation involving the terminal ileum, slightly thicker when compared to the previous study. Diverticulosis involving the left hemicolon without signs of diverticulitis. Appendix: Surgically absent. Lymph nodes: Multiple central mesenteric lymph nodes are again noted and appear stable. Peritoneum: No free air. No masses or other abnormalities. Anterior abdominal wall: Bilateral fat containing inguinal hernias. Bones: Multilevel spondylosis. Soft tissues: Unremarkable. CT/Abdomen/Pelvis WITH Contrast IMPRESSION: 1. Status post distal small bowel resection and reanastomosis, patent. 2. Wall thickening and inflammation of the terminal ileum, more prominent when compared to the previous study. 3. Diverticulosis without signs of diverticulitis. 4. Suspicion of cholelithiasis. 5. Bilateral fat containing inguinal hernias. 6. Other nonacute findings detailed above. Reading Location: [facility]
[2024-12-06 05:07] LABS: HEPATITIS B SURFACE AG Negative (Negative); Hep C Antibodies Non Reactive (Non Reactive); Hepatitis A IgM Antibody Negative (Negative); Hepatitis B Core AB IgM Negative (Negative)
== END 2024-12-01 23:59 | disposition home or self-care (01) ==
PROVIDERS: PCP Family Medicine; Referring Provider Family Medicine; Visit Provider Family Medicine
DX: K50.90 Crohn's disease, unspecified, without complications (principal); K76.0 Fatty (change of) liver, not elsewhere classified
CPT/HCPCS: 86480; 36415; 74177; 80074; Q9967

== ENCOUNTER 2024-12-02 07:04 | Outpatient (CLI) | payer MEDICAID, SELFPAY | END 2024-12-02 23:59 | disposition home or self-care (01) | LOC: LABSPEC 07:07 | PROVIDERS: PCP Family Medicine; Referring Provider Student in an Organized Health Care Education/Training Program; Visit Provider Student in an Organized Health Care Education/Training Program | DX: K50.90 Crohn's disease, unspecified, without complications (principal) ==

== ENCOUNTER → 2025-01-15 | Outpatient (CLI) | payer MEDICAID, SELFPAY ==
[2025-01-17 12:08] LABS: QNTFERON TB Mitogen Value > 10.00 IU/mL (.); QNTFERON TB Nil Value 0.01 IU/mL (.); QNTFERON TB1+ Ag Value 0.03 IU/mL (.); QNTFERON TB2+ Ag Value 0.02 IU/mL (.); QNTIFERON TB Positive Criteria Negative (Negative)
== END | disposition home or self-care (01) ==
LOC: LAB 15:25
PROVIDERS: PCP Family Medicine; Referring Provider Student in an Organized Health Care Education/Training Program; Visit Provider Student in an Organized Health Care Education/Training Program
DX: K50.00 Crohn's disease of small intestine without complications (principal)
CPT/HCPCS: 36415; 86480

== ENCOUNTER 2025-02-12 18:00 | Outpatient (RCR) | payer MEDICAID, OTHER, SELFPAY ==
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
--- NOTE | 2025-06-18 17:25 | HP.PTDCSUM ---
Discharge Summary D/C summary: It has been my pleasure to treat LASHONDA RAMOS Jr. referred by Dr. Chris Adair MD, with the diagnosis of RADICULOPATHY ,LUMBAR ,INTERVERTBRAL DISC DISPLACEMNT for a total of 7 visit(s). Discharge Date: Please see the following information for a summary of their discharge status. Subjective Subjective: Patient pain intermittent. Pain located right hip. No symptoms left leg . Pain Bilateral: Pain Intensity (Out of 10): 5 Bilateral Hip: Pain Intensity (Out of 10): 5 Bilateral Back: Pain Intensity (Out of 10): 5 Overall Improvement % Improvement: 50 Objective Objective/Function: Patient making progress with less pain in left leg improved lumbar ROM for function of recoevry POSTURE: WFL GAIT: reciprocal pattern NEURO: denies paresthesia/tingling -reflexes L3-4,L4-5,L5-S1 3/3 PALPATION : tender LS FLEXABILITY: hamstrings min tight LUMBAR ROM: flexion min loss pain ,extension min loss pain ,side glides min loss MMT: quads/hams 4/5 ,hip flexion 4/5 ,5/5 Goals Goal 1:: Patient to be I with HEP Goal 2:: Patient to improve lumbar ROM for function of recovery for jobs demands Goal 3:: Patient to demonstrate 50% improvement with improve function with less pain Goal 4:: Patient to improve back oswestry score by 5 points to improve QOL and function Goal 5:: Patient to improve posture /body mechanics by 80% for job demands Plan Plan: RTD AND SCHEDULED WITH MRI D/C Information d/c sentence: If there are questions or concerns regarding this patient's physical therapy, please feel free to call me at [phone]. Thank you for the referral of this patient. Sincerely, Ag Ortez, PT, Cert MDT, OCS Balance/Gait/Functional tests Balance/Special Test Scores Oswestry Low Back Score: 17 Improvement % Improvement: 50
== END 2025-02-12 19:00 | disposition home or self-care (01) ==
LOC: PT 18:00
PROVIDERS: PCP Family Medicine; Referring Provider Orthopaedic Surgery Orthopaedic Surgery of the Spine; Visit Provider Orthopaedic Surgery Orthopaedic Surgery of the Spine
DX: M54.16 Radiculopathy, lumbar region (principal); M51.26 Other intervertebral disc displacement, lumbar region
CPT/HCPCS: 97110; 97162; 97530

== ENCOUNTER → 2025-03-06 | Outpatient (CLI) | payer MEDICAID, SELFPAY ==
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
== END | disposition home or self-care (01) ==
LOC: OPMRI 15:39
PROVIDERS: PCP Family Medicine; Referring Provider Anesthesiology; Visit Provider Anesthesiology
DX: M54.16 Radiculopathy, lumbar region (principal)
CPT/HCPCS: 72148

== ENCOUNTER → 2025-05-22 | Outpatient (CLI) | payer OTHER, MEDICAID, SELFPAY ==
[2025-05-22 14:25] LABS: Hematocrit 41.4 % (40-54); Hemoglobin 14.0 g/dL (13.0-16.5); Immature Granulocytes Count 0.030 X10^3/uL (0.0-0.0); Mean Corp Hgb Conc 33.8 g/dL (32-36); Mean Corpuscular Volume 89.4 fL (80-94); Mean Platelet Vol. 10.3 fl (6.2-12.0); NRBC Flagged by Analyzer 0 % (0-5); Platelet Count 357 K/mm3 (150-450); RBC Distribution Width CV 12.4 % (11.6-14.6); RBC Distribution Width SD 40.6 fl (35.1-43.9); Red Blood Count 4.63 M/mm3 (4.6-6.2); White Blood Count 10.4 K/mm3 (4.4-11.0)
[2025-05-22 15:33] LABS: AST(SGOT) 19 U/L (<=37); Alanine Aminotransfer ALT/SGPT 25 U/L (<=46); Albumin, Serum 4.5 g/dL (3.5-5.0); Alkaline Phosphatase 94 U/L (40-129); Anion Gap 13 (5-15); BUN 16 mg/dL (4-19); BUN/Creat Ratio 16.8 RATIO (10-20); CRP 5.25 mg/L (0.0-3.0); Calcium,Total 10.1 mg/dL (7.6-11.0); Carbon Dioxide 21.2 mmol/L (21.0-32.0); Chloride 105 mmol/L (98-108); Globulin 3.3 g/dL (2.2-4.2); Glucose 136 mg/dL (70-99); Potassium 4.2 mmol/L (3.3-5.1)
[2025-05-24 07:07] LABS: HEPATITIS B SURFACE AG Negative (Negative); Hep C Antibodies Non Reactive (Non Reactive); QNTFERON TB Mitogen Value 0.92 IU/mL (.); QNTFERON TB Nil Value 0.01 IU/mL (.); QNTFERON TB1+ Ag Value 0.01 IU/mL (.); QNTFERON TB2+ Ag Value 0.01 IU/mL (.); QNTIFERON TB Positive Criteria Negative (Negative)
== END | disposition home or self-care (01) ==
PROVIDERS: PCP Family Medicine; Referring Provider Student in an Organized Health Care Education/Training Program; Visit Provider Student in an Organized Health Care Education/Training Program
DX: K50.90 Crohn's disease, unspecified, without complications (principal)
CPT/HCPCS: 36415; 80053; 80074; 85025; 85652; 86140; 86480

== ENCOUNTER → 2025-09-07 | Outpatient (CLI) | payer OTHER, SELFPAY ==
--- OUTSIDE RECORDS SUMMARY | 2025-09-07 10:16 | XMS RPT_ITS | CCD ---
Author Organization [facility] Care Team Providers Care Manager Linux Name Role Phone CINDY Carbone Attending Provider DO Pamella Cordova Primary Care Provider [phone] DO Pamella Cordova Referring Provider Unavailable Primary Care Provider Erick Dr. Luis Goyal Primary Care Provider Dr. Luis Goyal Referring Provider MD Ernst Ba Attending Provider MD Ernst Ba Referring Provider MD Ernst Ba Other Provider Dr. Luis Goyal Primary Care Provider Dr. Luis Goyal Referring Provider MD Ernst Ba Attending Provider MD Ernst Ba Referring Provider MD Ernst Ba Other Provider Dr. Luis Goyal Primary Care Provider Dr. Luis Goyal Referring Provider MD Ernst Ba Attending Provider Dr. Yeny Hairston Attending Provider [phone] Dr. Luis Goyal Primary Care Provider [phone] Dr. Luis Goyal Referring Provider MD Ernst Ba Attending Provider Dr. Ankur Albarran Attending Provider Dr. Yeny Hairston Referring Provider Dr. Yeny Hairston Other Provider Zenon CLAUDIO, Magda [facility]ending [facility] Cast[facility]na Emergency Provider Hattie STARKS, Dr. Cerrato Attending Provider Hattie STARKS, Dr. Cerrato Emergency Provider Magda Yarbrough MD Referring Provider Dr. Chris Adair MD Attending Provider Radha CLAUDIO, Dr. Noonan Attending Provider Angie Gtz Attending Provider Angie Gtz Referring Provider Roque STARKS, Dr. Reyna Attending Provider Roque STARKS, Dr. Reyna Other Provider Magda Yarbrough MD Attending Provider Zenon CLAUDIO, Magda Primary Care Provider Hattie STARKS, Dr. Cerrato Attending Provider Hattie STARKS, Dr. Cerrato Emergency Provider Zenon CLAUDIO, Magda Referring Provider Dr. Chris Adair MD Attending Provider Dr. Saran Garcia MD Attending Provider Angie Gtz Attending Provider Angie Gtz Referring Provider Roque STARKS, Dr. Reyna Attending Provider Roque STARKS, Dr. Reyna Other Provider Magda Yarbrough MD Attending Provider Dr. Chris Adair MD Referring Provider Zenon CLAUDIO, Chalon Primary Care Provider Zenon CLAUDIO, Chalon Referring Provider Giovany CLAUDIO, Dr. Perez Attending Provider Giovany CLAUDIO, Dr. Perez Referring Provider Zaria CLAUDIO, Dr. De Anda Attending Provider Zaria CLAUDIO, Dr. De Anda Referring Provider Zenon CLAUDIO, Chalon Primary Care Provider Zenon CLAUDIO, Chalon Referring Provider Angie Gtz Attending Provider Angie Gtz Referring Provider Tonia Bearden Attending Provider Zenon CLAUDIO, Chalon Primary Care Provider Zenon CLAUDIO, Chalon Referring Provider Angie Gtz Attending Provider Angie Gtz Referring Provider Zenno CLAUDIO, Chalon Primary Care Provider Zenon CLAUDIO, Chalon Primary Care Physician Zenon CLAUDIO, Joannaon Referring Provider Tonia Bearden Attending Physician Angie Gtz Attending Physician Zenon, Chalon Referring Unavailable Tonia Adan Attending Unavailable Zenon, Chalon Primary Care Unavailable Zenon, Chalon Primary Care Unavailable Radha, Melvin Attending Unavailable Zenon, Chalon Referring Unavailable Adair, Chris Attending Unavailable Zenon, Chalon Primary Care Unavailable Zenon, Chalon Primary Care Unavailable Zenon, Chalon Referring Unavailable AtaAngie mcguire Attending Unavailable Zenon, Chalon Primary Care Unavailable AtaAngie mcguire Referring Unavailable AtaAngie mcguire Attending Unavailable Adair, Chris Referring Unavailable Adair, Chris Attending Unavailable Zenon, Chalon Primary Care Unavailable Zenon, Chalon Primary Care Unavailable AtaAngie mcguire Attending Unavailable AtanasovAngie Referring Unavailable Zenon, Chalon Primary Care Unavailable Angie Wagner Attending Unavailable Angie Wagner Referring Unavailable FriendAxel Attending Unavailable Zenon, Chalon Primary Care Unavailable Zenon, Chalon Referring Unavailable Zenon, Chalon Primary Care Unavailable Zenon, Chalon Referring Unavailable AtanasAngie guillermo Attending Unavailable Zenon, Chalon Primary Care Unavailable Raffaele Webb Attending Unavailabl e Zenon, Chalon Primary Care Unavailable Zenon, Chalon Referring Unavailable Efrain Fisher Attending Unavailable Zenon, Chalon Primary Care Unavailable Zenon, Chalon Referring Unavailable AtanasovAngie Attending Unavailable Friend, Axel Attending Unavailable Friend, Axel Consulting Unavailable Zenon, Chalon Primary Care Unavailable Zenon, Chalon Referring Unavailable Zenon, Chalon Referring Unavailable AtanasovAngie Attending Unavailable Zenon, Chalon Primary Care Unavailable Zenon, Chalon Primary Care Unavailable Zenon, Chalon Referring Unavailable Angie Wagner Attending Unavailable Angie Wagner Attending Unavailable Zenon, Chalon Referring Unavailable Zenon, Chalon Primary Care Unavailable Zenon, Chalon Primary Care Unavailable Saqib Kuhn Attending Unavailable Adair, Chris Referring Unavailable Adair, Chris Attending Unavailable Zenon, Chalon Primary Care Unavailable Prayson, Adilson Referring Unavailable Prayson Adilson Attending Unavailable Zenon, Chalon Primary Care Unavailable Zenon, Chalon Referring Unavailable Zenon, Chalon Primary Care Unavailable Zenon, Chalon Attending Unavailable Zenon, Chalon Primary Care Unavailable Angie Wagner Attending Unavailable Angie Wagner Referring Unavailable Zenon, Chalon Primary Care Unavailable Atanasov, Angie Referring Unavailable Atanasov, Angie Attending Unavailable Allergies Allergy Classification Reported Allergen(s) Allergy Type Date of Onset Reaction(s) Facility (20 sources) Penicillins; Translations: [Penicillins] Allergy to substance 03-22-2022 Intolerance [facility] Comment on above: as a child Medications Current Medications Medication Drug Class(es) Dates Sig (Normalized) Sig (Original) budesonide 3 mg delayed release oral capsule (9 sources) Corticosteroid Start: 11-16-2024 take 1 capsule by mouth once daily Budesonide 3 mg capsule,delayed,ex tend.release Active 3 mg PO daily November 16, 2024 1:00am Complies with drug therapy dicyclomine hydrochloride 10 mg oral capsule (1 source) Anticholinergic Start: 07-12-2025 take 1 capsule by mouth twice daily Dicyclomine 10 mg capsule Active 10 mg PO TWICE A DAY 09 11July 12, 2025 12:00am Complies with drug therapy Multivitamin preparation (8 sources) Start: 07-01-2022 take 1 tablet by mouth once daily Multivitamin Active 1 TABLET PO DAILY June 30, 2022 11:00pm Start: 07-01-2022 take 1 tablet by juan th once daily Multivitamin Active 1 TABLET PO DAILY July 01, 2022 12:00am Risankizumab-Rzaa (2 sources) Start: 05-23-2025 Risankizumab-R zaa (Skyrizi) 360 mg/2.4 mL (150 mg/mL) wearable injector Active 360 mg SC .q8wk 2.4 May 23, 2025 12:42pm Crohn's disease Crohn's disease, unspecified, without complications Complies with drug therapy Start: 02-13-2025 End: 05-23-2025 Risankizumab-Rzaa (Skyrizi) 360 mg/2.4 mL (150 mg/mL) wearable injector Discontinued 360 mg SC .q8wk 2.4 0 February 13, 2025 12:00am May 23, 2025 12:42pm Crohn's disease Crohn's disease, unspecified, without complications Risankizumab-Rzaa (Skyrizi) 360 mg/2.4 mL (150 mg/mL) wearable injector (7 sources) Start: 05-23-2025 Risankizumab-R zaa (Skyrizi) 360 mg/2.4 mL (150 mg/mL) wearable injector Active 360 mg SC .q8wk 2.4 May 23, 2025 12:42pm Crohn's disease Crohn's disease, unspecified, without complications Start: 02-13-2025 End: 05-23-2025 Risankizumab-Rzaa (Skyrizi) 360 mg/2.4 mL (150 mg/mL) wearable injector Discontinued 360 mg SC .q8wk 2.4 0 February 13, 2025 12:00am May 23, 2025 12:42pm Crohn's disease Crohn's disease, unspecified, without complications Start: 02-13-2025 Risankizumab-R zaa (Skyrizi) 360 mg/2.4 mL (150 mg/mL) wearable injector Active 360 mg SC .q8wk 2.4 0 February 13, 2025 12:00am Crohn's disease Crohn's disease, unspecified, without complications Start: 02-13-2025 Risankizumab-R zaa (Skyrizi) 360 mg/2.4 mL (150 mg/mL) wearable injector Active 360 mg SC .q8wk 2.4 February 13, 2025 12:00am Skyrizi (12 sources) Start: 02-06-2025 Skyrizi Active 0 .ROUTE .COMPLEX 1 0 February 06, 2025 12:31pm Crohn's disease Crohn's disease of ileum Crohn's disease, unspecified, without complications Crohn's disease of small intestine without complications crohns disease k50.0 600mg/10ml 0,4,8 weeks for Crohns disease K50.0 Complies with drug therapy Start: 02-06-2025 Skyrizi Active 0 .ROUTE .COMPLEX 1 0 February 06, 2025 12:31pm Crohn's disease Crohn's disease of ileum Crohn's disease, unspecified, without complications Crohn's disease of small intestine without complications crohns disease k50.0 600mg/10ml 0,4,8 weeks for Crohns disease K50.0 Start: 02-06-2025 Skyrizi Active 0 .ROUTE .COMPLEX 1 February 06, 2025 12:31pm 600mg/10ml 0,4,8 weeks for Crohns disease K50.0 Start: 02-06-2025 End: 02-06-2025 Skyrizi Discontinued 0 .ROUT E .COMPLEX 1 0 February 06, 2025 12:00am February 06, 2025 12:32pm Crohn's disease Crohn's disease of ileum Crohn's disease, unspecified, without complications Crohn's disease of small intestine without complications crohns disease k50.0 600mg/10ml 0,4,8 weeks; Start: 02-06-2025 End: 02-06-2025 Skyrizi Discontinued 0 .ROUT E .COMPLEX 1 February 06, 2025 12:00am February 06, 2025 12:32pm 600mg/10ml 0,4,8 weeks; valACYclovir 1000 mg oral tablet (1 source) [...] days. 21 tablet 0 07/04/2022 07/11/2022 Active Comment on above: Take 1 tablet by juan th three times daily for 7 days. Completed/Discontinued Medications Medication Drug Class(es) Dates Sig (Normalized) Sig (Original) acetaminophen 325 mg oral capsule (16 sources) Start: 08-11-2022 End: 07-05-2023 take 1 capsule by mouth once as needed for pain Acetaminophen (Tylenol) 325 mg capsule Discontinued 325 mg PO ONCE as needed for Pain August 11, 2022 12:00am July 05, 2023 3:50am acetaminophen 325 mg / oxyCODONE hydrochloride 5 mg oral tablet (20 sources) Opioid Agonist Start: 12-17-2022 End: 07-05-2023 Oxycodone-Acetaminop hen 5-325 mg tablet Discontinued 1 - 2 {tbl} PO EVERY 6 HOURS as needed for pain 14 3 0 December 17, 2022 July 05, 2023 3:50am Postoperative pain Other acute postprocedural pain Start: 12-17-2022 End: 07-05-2023 take 1 tablet by mouth every six hours Oxycodone-Acetaminophen Discontinued 1 - 2 TABLET PO EVERY 6 HOURS 14 3 December 17, 2022 July 05, 2023 3:50am Start: 07-09-2022 End: 07-12-2022 Oxycodone-Acetaminophen (End ocet) 5-325 mg tablet Discontinued 1 {tbl} PO Q4H as needed for pain 14 3 0 July 09, 2022 July 11, 2022 12:00am July 12, 2022 12:03am Carpal tunnel syndrome of right wrist Carpal tunnel syndrome, right upper limb cariprazine 1.5 mg oral capsule (19 sources) Atypical Antipsychotic Start: 03-22-2022 End: 11-13-2022 take 1 capsule by mouth once daily Cariprazine (Vraylar) 1.5 mg capsule Discontinued 3 mg PO DAILY March 22, 2022 12:00am November 13, 2022 11:12am cholecalciferol 0.025 mg oral capsule (17 sources) Vitamin D Start: 07-01-2022 End: 11-02-2024 take 1 capsule by mouth once daily Cholecalciferol (Vitamin D3) (Vitamin D3) 25 mcg (1,000 unit) Capsule Discontinued 25 ug PO DAILY July 01, 2022 12:00am November 02, 2024 4:47pm cyclobenzaprine hydrochloride 10 mg oral tablet (20 sources) Muscle Relaxant Start: 12-20-2023 End: 11-02-2024 take 1 tablet by mouth at bedtime as needed for muscle spasms Cyclobenzaprine 10 mg tablet Discontinued 10 mg PO BEDTIME as needed for muscle spasm 14 0 August 08, 2024 12:00am November 02, 2024 4:46pm gabapentin 100 mg oral capsule (12 sources) Anti-epileptic Agent Start: 12-31-2022 End: 01-30-2023 take 1 capsule by mouth three times daily Gabapentin 100 mg capsule Discontinued 100 mg PO THREE TIMES A DAY 90 30 0 December 31, 2022 12:00am January 29, 2023 12:00am January 30, 2023 12:12am post op pain ibuprofen 200 mg oral tablet (1 source) Nonsteroidal Anti-inflammatory Drug take 1 tablet by mouth every six hours as needed ibuprofen (MOTRIN) 200 mg tablet Take 200 mg by mouth every 6 hours as needed. 0 Active Comment on above: Take 200 mg by mouth every 6 hours as needed. meloxicam 7.5 mg oral tablet (20 sources) Nonsteroidal Anti-inflammatory Drug Start: 11-13-2022 End: 12-31-2022 take 2 tablets by mouth once daily Meloxicam 7.5 mg tablet Discontinued 15 mg PO DAILY November 13, 2022 11:11am December 31, 2022 2:17pm post op discomfort Start: 11-13-2022 End: 12-31-2022 take 15 mg by mouth once daily Meloxicam Discontinued 15 MG PO DAILY November 13, 2022 11:11am December 31, 2022 2:17pm Start: 07-16-2022 End: 11-13-2022 take 1 tablet by mouth twice daily as needed Meloxicam 7.5 mg tablet Discontinued 7.5 mg PO TWICE A DAY as needed for post op discomfort 30 10July 21, 2022 1:15pm November 13, 2022 11:13am mesalamine 400 mg delayed release oral capsule (12 sources) Aminosalicylate Start: 07-05-2023 End: 11-02-2024 take 2 tablets by mouth twice daily Mesalamine 400 mg capsule (with del rel tablets) Discontinued 800 mg PO TWICE A DAY 120 July 05, 2023 12:00am November 02, 2024 4:47pm Start: 07-05-2023 take 800 mg by mouth twice daily Mesalamine Active 800 MG PO TWICE A DAY July 05, 2023 12:00am metroNIDAZOLE 500 mg oral tablet (12 sources) Nitroimidazole Antimicrobial Start: 07-05-2023 End: 11-02-2024 take 1 tablet by mouth every six hours Metronidazole 500 mg tablet Discontinued 500 mg PO EVERY 6 HOURS 40 0 July 05, 2023 12:00am November 02, 2024 4:47pm Multivitamin Tablet (9 sources) Start: 07-01-2022 End: 11-02-2024 Multivitamin Tablet Discontinued 1 {tbl} PO DAILY July 01, 2022 12:00am November 02, 2024 4:47pm Start: 07-01-2022 End: 11-02-2024 Multivitamin Tablet Disconti nued 1 {tbl} PO DAILY June 30, 2022 11:00pm November 02, 2024 3:47pm naproxen 500 mg oral tablet (20 sources) Nonsteroidal Anti-inflammatory Drug Start: 12-20-2023 End: 11-02-2024 take 1 tablet by mouth twice daily as needed for pain Naproxen (Naprosyn) 500 mg tablet Discontinued 500 mg PO TWICE A DAY as needed for pain December 20, 2023 12:00am November 02, 2024 4:47pm Start: 03-22-2022 End: 07-21-2022 take 1 tablet by mouth twice daily as needed for pain Naproxen (Naprosyn) 500 mg tablet Discontinued 500 mg PO TWICE A DAY as needed for pain March 22, 2022 12:00am July 21, 2022 1:03pm omeprazole 20 mg delayed release oral tablet (17 sources) Proton Pump Inhibitor Start: 06-11-2022 End: 11-02-2024 Omeprazole 20 mg tablet,delayed release (DR/EC) Discontinued 20 mg PO NEEDED as needed for GERD June 11, 2022 12:00am November 02, 2024 4:47pm ondansetron 4 mg disintegrating oral tablet (20 sources) Serotonin-3 Receptor Antagonist Start: 10-01-2024 End: 11-02-2024 take 1 tablet by mouth every eight hours as needed for nausea Ondansetron 4 mg tablet,disintegratin g Discontinued 4 mg PO EVERY 8 HOURS NEEDED as needed for Nausea 10 October 01, 2024 1:00am November 02, 2024 4:47pm Start: 07-05-2023 End: 05-25-2024 take 2 tablets by mouth every eight hours as needed for nausea Ondansetron 4 mg tablet,disintegrating Discontinued 8 mg PO EVERY 8 HOURS NEEDED as needed for Nausea July 05, 2023 12:00am May 25, 2024 1:47pm Start: 07-05-2023 take 8 mg by mouth e very eight hours as needed Ondansetron Active 8 MG PO EVERY 8 HOURS NEEDED July 05, 2023 12:00am predniSONE 20 mg oral tablet (20 sources) Start: 12-28-2024 End: 07-12-2025 take 1 tablet by mouth once daily Prednisone 20 mg tablet Discontinued 20 mg PO daily 30 0 December 28, 2024 12:00am July 12, 2025 3:24pm Start: 12-08-2024 End: 12-22-2024 take 2 tablets by mouth once daily Prednisone 20 mg tablet Discontinued 40 mg PO daily 28 14 0 December 08, 2024 1:00am December 21, 2024 12:00am December 22, 2024 12:15am Start: 10-01-2024 End: 11-02-2024 take 3 tablets by mouth once daily Prednisone 20 mg tablet Discontinued 60 mg PO DAILY 15 0 October 01, 2024 1:00am November 02, 2024 4:46pm Start: 08-08-2024 End: 11-02-2024 take 4 tablets by mouth once daily, then take 3 tablets by mouth once daily, then take 2 tablets by mouth once daily, then take 1 tablet by mouth once daily Prednisone 10 mg tablet Discontinued 10 mg PO DAILY August 08, 2024 12:00am November 02, 2024 4:46pm 4 tablets daily x3 days, then 3 tablets daily x3 days, then 2 tablets daily x3 days, then 1 tablet daily x3 days Start: 12-20-2023 End: 05-25-2024 take 2 tablets by mouth once daily Prednisone 20 mg tablet Discontinued 40 mg PO DAILY December 20, 2023 12:00am May 25, 2024 1:47pm Start: 12-20-2023 take 40 mg by mouth once daily Prednisone Active 40 MG PO DAILY December 20, 2023 12:00am Start: 07-05-2023 End: 05-25-2024 take 4 tablets by mouth once daily, then take 3 tablets by mouth once daily, then take 2 tablets by mouth once daily, then take 1 tablet by mouth once daily Prednisone 10 mg tablet Discontinued 10 mg PO DIRECTED July 05, 2023 12:00am May 25, 2024 1:46pm Take 4 tablets daily for 3 days, then 3 daily for 3 days, then 2 daily for 3 days, then 1 a day for 3 days. QUEtiapine 25 mg oral tablet (14 sources) Atypical Antipsychotic Start: 11-13-2022 End: 11-02-2024 take 1 tablet by mouth at bedtime Quetiapine 25 mg tablet Discontinued 25 mg PO AT BEDTIME November 13, 2022 1:00am November 02, 2024 4:46pm sulfamethoxazole 800 mg / trimethoprim 160 mg oral tablet (15 sources) Dihydrofolate Reductase Inhibitor Antibacterial, Sulfonamide Antimicrobial Start: 09-25-2022 End: 10-02-2022 Sulfamethoxazole- Trimethoprim (Bactrim Ds) 800-160 mg tablet Discontinued 1 {tbl} PO TWICE A DAY 14 7 0 September 25, 2022 1:00am October 01, 2022 1:00am October 02, 2022 1:04am Bilateral carpal tunnel syndrome Carpal tunnel syndrome, bilateral upper limbs possible infect traZODone hydrochloride 100 mg oral tablet (20 sources) Serotonin Reuptake Inhibitor Start: 03-22-2022 End: 11-13-2022 take 1 tablet by mouth at bedtime Trazodone 100 mg tablet Discontinued 100 mg PO AT BEDTIME March 22, 2022 12:00am November 13, 2022 11:12am Comment on above: Take 100 mg by mouth daily at bedtime. Zinc (17 sources) Start: 07-01-2022 End: 11-13-2022 take 1 tablet by mouth once daily Zinc 50 mg Tablet Discontinued 50 mg PO DAILY July 01, 2022 12:00am November 13, 2022 11:12am Start: 07-01-2022 End: 11-13-2022 take 1 tablet by mouth once daily Zinc 50 mg Tablet Discontinued 50 mg PO DAILY June 30, 2022 11:00pm November 13, 2022 10:12am Start: 07-01-2022 End: 11-13-2022 take 50 mg by mouth once daily Zinc Discontinued 50 MG PO DAILY July 01, 2022 12:00am November 13, 2022 11:12am Start: 07-01-2022 End: 11-13-2022 take 50 mg by mouth once daily Zinc Discontinued 50 MG PO DAILY June 30, 2022 11:00pm November 13, 2022 10:12am Start: 07-01-2022 take 50 mg by mouth once daily Zinc Active 50 MG PO DAILY June 30, 2022 11:00pm Start: 07-01-2022 take 50 mg by mouth once daily Zinc Active 50 MG PO DAILY July 01, 2022 12:00am Problems Active Problems Problem Classification Problem Date Documented Da te Episodic/Chronic Abdominal hernia (17 sources) Incisional hernia; Translations: [Incisional hernia without obstruction or gangrene] 11-13-2022 Episodic Mood disorders (14 sources) Bipolar I disorder; Translations: [Bipolar disorder, unspecified] 11-13-2022 Chronic Other connective tissue disease (14 sources) Diastasis recti; Translations: [Separation of muscle (nontraumatic), other site] 11-13-2022 Episodic Other connective tissue disease (3 sources) Separation of muscle (nontraumatic), other site; Translations: [Diastasis of muscle] 11-13-2022 Episodic Other gastrointestinal disorders (1 source) Irritable bowel syndrome without diarrhea; Translations: [Irritable bowel syndrome, unspecified] Onset: 12-04-2024 Chronic Other gastrointestinal disorders (14 sources) Heartburn; Translations: [Heartburn] 11-16-2024 Episodic Other gastrointestinal disorders (18 sources) Diarrhea; Translations: [Diarrhea, unspecified] 11-16-2024 Episodic Other lower respiratory disease (12 sources) Viral respiratory infection; Translations: [Other specified respiratory disorders] 09-08-2023 Episodic Other lower respiratory disease (11 sources) Wheezing; Translations: [Wheezing] 12-20-2023 Episodic Other nervous system disorders (20 sources) Carpal tunnel syndrome; Translations: [Carpal tunnel syndrome, unspecified upper limb] 06-11-2022 Chronic Other nervous system disorders (13 sources) Carpal tunnel syndrome, bilateral upper limbs; Translations: [Carpal tunnel syndrome] Chronic Other nervous system disorders (9 sources) Carpal tunnel syndrome, right upper limb; Translations: [Carpal tunnel syndrome] Chronic Other nervous system disorders (11 sources) Carpal tunnel syndrome of right wrist; Translations: [Carpal tunnel syndrome, right upper limb] 06-11-2022 Chronic Other nervous system disorders (1 source) Bilateral carpal tunnel syndrome; Translations: [Carpal tunnel syndrome, bilateral upper limbs] 04-20-2022 Chronic Other nervous system disorders (13 sources) Postoperative pain ; Translations: [Other acute postprocedural pain] 12-17-2022 Episodic Regional enteritis and ulcerative colitis (20 sources) Crohn's disease; Translations: [Crohn's disease, unspecified, without complications] Onset: 07-12-2025 07-13-2023 Chronic Residual codes; unclassified (12 sources) History of hernia repair; Translations: [Other specified postprocedural states] 01-15-2023 Episodic Schizophrenia and other psychotic disorders (14 sources) Schizophrenia; Translations: [Schizophrenia, unspecified] 11-13-2022 Chronic Spondylosis; intervertebral disc disorders; other back problems (17 sources) Prolapsed lumbar intervertebral disc; Translations: [Other intervertebral disc displacement, lumbar region] Onset: 06-26-2025 11-03-2024 Chronic Spondylosis; intervertebral disc disorders; other back problems (20 sources) Sciatica; Translations: [Sciatica, unspecified side] Onset: 12-08-2024 12-20-2023 Episodic Sprains and strains (9 sources) Low back strain; Translations: [Strain of muscle, fascia and tendon of lower back, initial encounter] 08-08-2024 Episodic Unclassified (2 sources) M54.16 - Radiculopathy, lumbar region,M51.26 - Other intervertebral disc displacement, lumbar region Unclassified (1 source) Low back pain, unspecified; Translations: [Low back pain, unspecified] Onset: 11-02-2024 Viral infection (19 sources) Disease caused by 2019-nCoV; Translations: [COVID-19] 10-26-2021 Episodic Past or Other Problems Problem Classification Problem Date Documented Da te Episodic/Chronic Abdominal pain (15 sources) Abdominal pain; Translations: [Unspecified abdominal pain] Onset: 10-31-2024 11-16-2024 Episodic Open wounds of extremities (10 sources) Laceration of hand; Translations: [Laceration without foreign body of unspecified hand, initial encounter] Onset: 10-10-2024 09-15-2024 Episodic Other gastrointestinal disorders (1 source) Heartburn; Translations: [Heartburn] Onset: 12-05-2024 Episodic Other gastrointestinal disorders (2 sources) Diarrhea, unspecified; Translations: [Diarrhea, unspecified] Onset: 11-30-2024 Episodic Results Test Name Value Interpretation Reference Range Facility Gastroenterology Visit Repor ton 07-12-2025 Gastroenterology Visit Report [facility] [address] [place] [address] OFFICE VISIT Date of Service: 07/12/25 MR#: [id number] Acct: [id number] Name: LASHONDA ALMONTE Rep #: [id number] 1 : 1970 Provider: CINDY Jimenez Age/Sex: 55/M [place] [facility] [place]: Signed Intake Vital Signs 05/21/25 12:22 Height 5 ft 7 in Intake Visit Reasons: Medication Follow Up Chief Complaint: crohns [employer] Aide Required: No Accompanied by: Is patient in pain?: No Allergies Penicillins (PCN) Allergy (Verified 07/12/25 15:25) Other Medications ???Medication ???Instructions ???Recorded ???Confirmed ???Type budesonide 3 mg 3 mg PO QDAY 11/16/24 07/12/25 His tory capsule,delayed,extended release Skyrizi See Rx Instructions .Route 5 07/12/25 Rx .COMPLEX crohns disease k50.0 #1 mg risankizumab-rzaa 360 mg/2.4 mL 360 mg (2.4 mL) subcut .q8wk #2.4 05/23/25 07/12/25 Rx (150 mg/mL) subcut wearable mL injector (Skyrizi) dicyclomine 10 mg capsule 10 mg PO BID #30 caps 07/12/2512/05 Rx PFSH Medical History Gastric reflux Lumbar radiculopathy Lumbar strain Diastasis recti Schizophrenia Bipolar 1 disorder Wears glasses History of steroid therapy Arthritis High cholesterol Injury of back Non-smoker Right carpal tunnel syndrome Anger Anxiety Depression Crohn disease Surgical History Hx of hernia repair History of incisional hernia repair History of carpal tunnel surgery of right wrist History of resection of small bowel History of colonoscopy ( 2012) History of colonoscopy ( 2015) History of carpal tunnel release ( 2021) Family History Mother Asthma Cancer Father Hypertension Ulcer Brother Diabetes Social History household members: none Smoking Status: Former smoker alcohol intake: never HPI HPI Chief Complaint: crohns Details: LASHONDA ALMONTE, is a 55 M who presents to the office today for follow-up. Colonoscopy .; - Diverticulosis in the recto-sigmoid colon, in the sigmoid colon and in the descending colon. - Non-patent end-to-side ileo-colonic anastomosis, characterized by edema, erosion, erythema and ulceration. - No specimens collected EGD .; - Normal esophagus. - Chronic gastritis. Biopsied. - Erythematous duodenopathy. Biopsied. Biochemical work up 2.6.25; platelets H, ESR 34 H, Alt H, CRP H Stool 2.7.25; calprotectin 926 H, Pancreatic elastase 191 L OV 5.21.25 Pt has been having diarrhea again over the past two weeks. Prior to this he was doing better. He is having 3-4 loose stools per day. He is loosing weight due to decreased appetite. He has not yet had his skyrizi infusion but is scheduled for it 03.02.25. He denies n/v, constipation, abd pain or blood in his stool. OV 05.22.25 patient has had 3 infusions of Skyrizi. His most recent infusion was May 11. Patient felt like he was doing well after starting the first 2 infusions however recently he has started to have loose stool again. He feels this is related to eating bad foods. Patient's primary care provider did start him on a course of prednisone recently. He has had a few episodes of black stool. OV 07/12/25 patient continues to have abdominal pain, loss of appetite and intermittent loose stool. Patient has had 1 injection of his Skyrizi so far. He does not feel like it is working at this point. Patient also feels like he may have a sinus infection over the past 2 weeks. ROS Const Constitutional: Positive for fatigue, headache(s) and weight change (loss); No fever(s) ENT ENT: Positive for headache(s); No difficulty swallowing Gastro GI: Positive for abdominal pain, bloating, change in bowel habits, constipation, diarrhea, heartburn, nausea/dyspepsia and vomiting; No belching, change in stool character, coffee ground emesis, cramping, difficulty swallowing, feeling full early, excessive flatus, incontinent of stools, Vomiting blood/hematemesis, Blood in st ool, loose stools, Black,tarry stools, pain with swallowing or other Musc Musculoskeletal: Positive for back pain, muscle cramps, muscle weakness, numbness, tingling, sciatica and leg pain at night; No joint pain Skin Skin: Positive for dry skin; No yellowing of the eye or itchy eyes Neuro Neurology: Positive for headache(s), numbness and tingling Psych Psychiatric: Positive for anxiety, Positive for depression, Positive for paranoia, Positive for Behavioral Problems and Positive for inattentiveness Endo Endocrine: Positive for fatigue and weight change (loss) (more content not included)... Normal [facility] PT D/C Summary (1)on 025 PT D/C Summary (1) [facility] [address] [place] [address]. [address] [place] [address] / REHABILITATION SERVICES DISCHARGE SUMMARY MR#: [id number] Acct: [id number] Name: LASHONDA ALMONTE Jr. Rep #: [id number] : 1970 55 From: Ag Ortez PT, Cert. MD Lucio, OCS Referring Dr.: Dr. Chris Adair MD Status: REG RCR Insurance: [facility] [id number] [facility] Discharge Summary D/C summary: It has been my pleasure to treat LASHONDA ALMONTE Jr. referred by Dr. Chris Adair MD, with the diagnosis of RADICULOPATHY ,LUMBAR ,INTERVERTBRAL DISC DISPLACEMNT for a total of 7 visit(s). Discharge Date: Please see the following information for a summary of their discharge status. Subjective Subjective: Patient pain intermittent. Pain located right hip. No symptoms left leg . Pain Bilateral: Pain Intensity (Out of 10): 5 Bilateral Hip: Pain Intensity (Out of 10): 5 Bilateral Back: Pain Intensity (Out of 10): 5 Overall Improvement % Improvement: 50 Objective Objective/Function: Patient making progress with less pain in left leg improved lumbar ROM for function of recoevry POSTURE: WFL GAIT: reciprocal pattern NEURO: denies paresthesia/tingling -reflexes L3-4,L4-5,L5-S1 3/3 PALPATION : tender LS FLEXABILITY: hamstrings min tight LUMBAR ROM: flexion min loss pain ,extension min loss pain ,side glides min loss MMT: quads/hams 4/5 ,hip flexion 4/5 ,5/5 Goals Goal 1:: Patient to be I with HEP Goal 2:: Patient to improve lumbar ROM for function of recovery for jobs demands Goal 3:: Patient to demonstrate 50% improvement with improve function with less pain Goal 4:: Patient to improve back oswestry score by 5 points to improve QOL and function Goal 5:: Patient to improve posture /body mechanics by 80% for job demands Plan Plan: RTD AND SCHEDULED WITH MRI D/C Information d/c sentence: If there are questions or concerns regarding this patient's physical therapy, please feel free to call me at [phone]. Thank you for the referral of this patient. Sincerely, Ag Androsik, PT, Cert MDT, OCS Balance/Gait/Functional tests Balance/Special Test Scores Oswestry Low Back Score: 17 Improvement % Improvement: 50 06/18/25 3219 CC: Dr. Magda Yarbrough MD; Dr. Chris Adair MD JLA Signed Normal [facility] Hepatitis Panel Acuteon 05-11 COMMENT Comment Normal . [facility] Comment on above: Result Comment: Not infected with HCV unless early or acute infection is suspected (which may be delayed in an immunocompromised individual), or other evidence exists to indicate HCV infection. Performed at: - [facility] [id number] Livery Car Driver: Ye Ramirez PhD, Phone: [phone] Performed By: #### L 101.9900, L100.0100, L3000.0375, L500.4050, L501.6710, L3400.8000 #### [facility] [address] [place], [place], [id number] HEP B CORE,IgM Negative Normal Negative [facility] Comment on above: Performed By: #### L 101.9900, L100.0100, L3000.0375, L500.4050, L501.6710, L3400.8000 #### [facility] [address] [place] [id number] HEP B SURF AG Negative Normal Negative [facility] Comment on above: Performed By: #### L 101.9900, L100.0100, L3000.0375, L500.4050, L501.6710, L3400.8000 #### [facility] [address] [place] [id number] HEP C VIRUS AB Non-Reactive Normal Non Reactive [facility] Comment on above: Performed By: #### L 101.9900, L100.0100, L3000.0375, L500.4050, L501.6710, L3400.8000 #### [facility] [address] [place] [address] HEPATITIS A-IgM Negative Normal Negative [facility] Comment on above: Result Comment: A ne gative anti-HAV IgM result suggests no recent or current HAV infection. Performed By: #### L 101.9900, L100.0100, L3000.0375, L500.4050, L501.6710, L3400.8000 #### [facility] [address] [place], [address] Quantiferon TB-Gold+on 05-24 QFT MITOGEN NICO 0.92 IU/mL Normal . [facility] Comment on above: Performed By: #### L 101.9900, L100.0100, L3000.0375, L500.4050, L501.6710, L3400.8000 #### [facility] [address] [place], [address] QFT NIL VALUE 0.01 IU/mL Normal . [facility] Comment on above: Performed By: #### L 101.9900, L100.0100, L3000.0375, L500.4050, L501.6710, L3400.8000 #### [facility] [address] [place], [address] QFT TB GOLD+ Comment Normal . [facility] Comment on above: Result Comment: Fransisco tiFERON-TB Gold Plus is a qualitative indirect test for M tuberculosis infection (including disease) and is intended for use in conjunction with risk assessment, radiography, and other medical and diagnostic evaluations. The QuantiFERON-TB Gold Plus result is determined by subtracting the Nil value from either TB antigen (Ag) value. The Mitogen tube serves as a control for the test. Performed By: #### L 101.9900, L100.0100, L3000.0375, L500.4050, L501.6710, L3400.8000 #### [facility] [address] [place], [address] QFT TB POS CRIT Negative Normal Negative [facility] Comment on above: Result Comment: No r esponse to M tuberculosis antigens detected. Infection with M tuberculosis is unlikely, but high risk individuals should be considered for additional testing (ATS/IDSA/CDC Clinical Practice Guidelines, 2017). The reference range is an Antigen minus Nil result of <0.35 IU/mL. The specimen received for QuantiFERON testing was incubated by the ordering institution. Specific procedures outlined in our Directory of Services and in the package insert for the QuantiFERON Gold (In Tube) test must be followed to enable for proper stimulation of cells for the production of interferon gamma. Chemiluminescence immunoassay methodology Performed By: #### L 101.9900, L100.0100, L3000.0375, L500.4050, L501.6710, L3400.8000 #### [facility] [address] [facility] [place], [address] QFT TB1+ AG NICO 0.01 IU/mL Normal . [facility] Comment on above: Performed By: #### L 101.9900, L100.0100, L3000.0375, L500.4050, L501.6710, L3400.8000 #### [facility] [address] [place], [address] QFT TB2+ AG NICO 0.01 IU/mL Normal . [facility] Comment on above: Performed By: #### L 101.9900, L100.0100, L3000.0375, L500.4050, L501.6710, L3400.8000 #### [facility] [address] [place], [address] Absolute lymphocyte countOrd ered By: Angie Wagner on 05-22-2025 Lymphocytes Auto (Unsp spec) [#/Vol] 0.65 10*3/uL Low 0.83-4.51 [facility] Absolute neutrophil countOrd ered By: Angie Wagner on 05-22-2025 Neutrophils (Bld) [#/Vol] 9.5 10*3/uL High 2.0-7.7 [facility] Anion gap in Serum or Plasma Ordered By: Angie Wagner on 05-22-2025 Anion gap [Moles/Vol] 13 mmol/L 5-15 [facility] Automated lymphocyte count a s percentage of total leukocytesOrdered By: Angie Wagner on 05-22-2025 Lymphocytes/100 WBC Auto (Unsp spec) 6.2 % Low 19-41 [facility] BUN/creatinine ratioOrdered By: Angie Wagner on 05-22-2025 Urea nitrogen/Creatinine [Mass ratio] 16.8 mg/mg 10-20 [facility] Basophil percentageOrdered B y: Angie Wagner on 05-22-2025 Basophils/100 WBC (Bld) 0.2 % 0-1 [facility] Bilirubin, totalOrdered By: Angie Wagner on 05-22-2025 Bilirubin [Mass/Vol] 0.27 mg/dL 0.00-1.30 [facility] CBC W/Diff, Automatedon 05-11 Absolute Lymph 0.65 X10 3/uL Low 0.83-4.51 [facility] Comment on above: Performed By: #### L 101.9900, L100.0100, L3000.0375, L500.4050, L501.6710, L3400.8000 #### [facility] [address] [place], [address] Absolute Neut 9.5 X10 3/uL High 2.0-7.7 [facility] Comment on above: Performed By: #### L 101.9900, L100.0100, L3000.0375, L500.4050, L501.6710, L3400.8000 #### [facility] [address] [place], [address] Basophils/100 WBC (Bld) 0.2 % Normal 0-1 [facility] Comment on above: Performed By: #### L 101.9900, L100.0100, L3000.0375, L500.4050, L501.6710, L3400.8000 #### [facility] [address] [place], [address] Eosinophils/100 WBC (Bld) 0.0 % Normal 0-5 [facility] Comment on above: Performed By: #### L 101.9900, L100.0100, L3000.0375, L500.4050, L501.6710, L3400.8000 #### [facility] [address] [place], [address] Erythrocyte distribution width (RBC) [Ratio] 12.4 % Normal 11.6-14.6 [facility] Comment on above: Performed By: #### L 101.9900, L100.0100, L3000.0375, L500.4050, L501.6710, L3400.8000 #### [facility] [address] [facility] [place], [address] Hematocrit (Bld) [Volume fraction] 41.4 % Normal 40-54 [facility] Comment on above: Performed By: #### L 101.9900, L100.0100, L3000.0375, L500.4050, L501.6710, L3400.8000 #### [facility] [address] [place], [address] Hemoglobin (Bld) [Mass/Vol] 14.0 g/dL Normal 13.0-16.5 [facility] Comment on above: Performed By: #### L 101.9900, L100.0100, L3000.0375, L500.4050, L501.6710, L3400.8000 #### [facility] [address] [facility] [place], [address] IG% 0.300 Normal 0.0-0.9 [facility] Comment on above: Result Comment: IG% - Immature Granulocytes (promyelocytes, myelocytes and metamyelocytes) > 1% indicates that a LEFT SHIFT is Present. Performed By: #### L 101.9900, L100.0100, L3000.0375, L500.4050, L501.6710, L3400.8000 #### [facility] [address] [place], [address] Lymphocytes/100 WBC (Bld) 6.2 % Low 19-41 [facility] Comment on above: Performed By: #### L 101.9900, L100.0100, L3000.0375, L500.4050, L501.6710, L3400.8000 #### [facility] [address] [place], [address] MCH (RBC) [Entitic mass] 30.2 pg Normal 27.0-32.0 [facility] Comment on above: Performed By: #### L 101.9900, L100.0100, L3000.0375, L500.4050, L501.6710, L3400.8000 #### [facility] [address] [place], [address] MCHC (RBC) [Mass/Vol] 33.8 g/dL Normal 32-36 [facility] Comment on above: Performed By: #### L 101.9900, L100.0100, L3000.0375, L500.4050, L501.6710, L3400.8000 #### [facility] [address] [place], [address] MCV (RBC) [Entitic vol] 89.4 fL Normal 80-94 [facility] Comment on above: Performed By: #### L 101.9900, L100.0100, L3000.0375, L500.4050, L501.6710, L3400.8000 #### [facility] [address] [place], [address] Monocytes/100 WBC (Bld) 2.1 % Normal 0-10 [facility] Comment on above: Performed By: #### L 101.9900, L100.0100, L3000.0375, L500.4050, L501.6710, L3400.8000 #### [facility] [address] [place], [address] Neutrophils/100 WBC (Bld) 91.2 % High 47-70 [facility] Comment on above: Performed By: #### L 101.9900, L100.0100, L3000.0375, L500.4050, L501.6710, L3400.8000 #### [facility] [address] [place], [address] Nucleated RBC (Bld) [#/Vol] 0 10*3/uL Normal 0-5 [facility] Comment on above: Performed By: #### L 101.9900, L100.0100, L3000.0375, L500.4050, L501.6710, L3400.8000 #### [facility] [address] [place], [address] Platelet mean volume (Bld) [Entitic vol] 10.3 fL Normal 6.2-12.0 [facility] Comment on above: Performed By: #### L 101.9900, L100.0100, L3000.0375, L500.4050, L501.6710, L3400.8000 #### [facility] [address] [place], [address] Platelets (Bld) [#/Vol] 357 10*3/uL Normal 150-450 [facility] Comment on above: Performed By: #### L 101.9900, L100.0100, L3000.0375, L500.4050, L501.6710, L3400.8000 #### [facility] [address] [place], [address] RBC (Bld) [#/Vol] 4.63 10*6/uL Normal 4.6-6.2 [facility] Comment on above: Performed By: #### L 101.9900, L100.0100, L3000.0375, L500.4050, L501.6710, L3400.8000 #### [facility] [address] [place], [address] RDW SD 40.6 fl Normal 35.1-43.9 [facility] Comment on above: Performed By: #### L 101.9900, L100.0100, L3000.0375, L500.4050, L501.6710, L3400.8000 #### [facility] [address] [place], [address] WBC (Bld) [#/Vol] 10.4 10*3/uL Normal 4.4-11.0 [facility] Comment on above: Performed By: #### L 101.9900, L100.0100, L3000.0375, L500.4050, L501.6710, L3400.8000 #### [facility] [address] [place], [address] CRPon 05-22-2025 C-REACTIVE PROT 5.25 mg/L High 0.0-3.0 [facility] Comment on above: Performed By: #### L 101.9900, L100.0100, L3000.0375, L500.4050, L501.6710, L3400.8000 #### [facility] [address] [place], [address] Carbon dioxide, total [Moles /volume] in Central venous bloodOrdered By: Angie Wagner on 05-22-2025 CO2 [Moles/Vol] 21.2 mmol/L 21.0-32.0 [facility] Chloride assayOrdered By: Louann Wagner on 05-22-2025 Chloride [Moles/Vol] 105 mmol/L 98-108 [facility] Comprehensive Metabolic Prof ilon 05-22-2025 Albumin [Mass/Vol] 4.5 g/dL Normal 3.5-5.0 [facility] Comment on above: Performed By: #### L 101.9900, L100.0100, L3000.0375, L500.4050, L501.6710, L3400.8000 #### [facility] [address] [place], [address] Albumin/Globulin [Mass ratio] 1.4 {ratio} Normal 0.9-2.4 [facility] Comment on above: Performed By: #### L 101.9900, L100.0100, L3000.0375, L500.4050, L501.6710, L3400.8000 #### [facility] [address] [place], [address] ALK PHOS 94 U/L Normal 40-129 [facility] Comment on above: Performed By: #### L 101.9900, L100.0100, L3000.0375, L500.4050, L501.6710, L3400.8000 #### [facility] [address] [place], [address] ALT [Catalytic activity/Vol] 25 U/L Normal <=46 [facility] Comment on above: Performed By: #### L 101.9900, L100.0100, L3000.0375, L500.4050, L501.6710, L3400.8000 #### [facility] [address] [place], [address] AST [Catalytic activity/Vol] 19 U/L Normal <=37 [facility] Comment on above: Performed By: #### L 101.9900, L100.0100, L3000.0375, L500.4050, L501.6710, L3400.8000 #### [facility] [address] [place], [address] Bilirubin [Mass/Vol] 0.27 mg/dL Normal 0.00-1.30 [facility] Comment on above: Performed By: #### L 101.9900, L100.0100, L3000.0375, L500.4050, L501.6710, L3400.8000 #### [facility] [address] [place], [address] BUN/CRE 16.8 RATIO Normal 10-20 [facility] Comment on above: Performed By: #### L 101.9900, L100.0100, L3000.0375, L500.4050, L501.6710, L3400.8000 #### [facility] [address] [place], [address] Calcium [Mass/Vol] 10.1 mg/dL Normal 7.6-11.0 [facility] Comment on above: Performed By: #### L 101.9900, L100.0100, L3000.0375, L500.4050, L501.6710, L3400.8000 #### [facility] [address] [place], [address] Chloride [Moles/Vol] 105 mmol/L Normal 98-108 [facility] Comment on above: Performed By: #### L 101.9900, L100.0100, L3000.0375, L500.4050, L501.6710, L3400.8000 #### [facility] [address] [place], [address] CO2 [Moles/Vol] 21.2 mmol/L Normal 21.0-32.0 [facility] Comment on above: Performed By: #### L 101.9900, L100.0100, L3000.0375, L500.4050, L501.6710, L3400.8000 #### [facility] [address] [place], [address] Creatinine [Mass/Vol] 0.94 mg/dL Normal 0.70-1.20 [facility] Comment on above: Performed By: #### L 101.9900, L100.0100, L3000.0375, L500.4050, L501.6710, L3400.8000 #### [facility] [address] [place], [address] GAP 13 Normal 5-15 [facility] Comment on above: Performed By: #### L 101.9900, L100.0100, L3000.0375, L500.4050, L501.6710, L3400.8000 #### [facility] [address] [place], [address] GFR/1.73 sq M.predicted among non-blacks MDRD (S/P/Bld) [Vol rate/Area] 96 mL/min/{1.73_m2} Normal >60 [facility] Comment on above: Result Comment: mL/m in/1.73m2 CKD-EPI Creatinine Equation (2020) Performed By: #### L 101.9900, L100.0100, L3000.0375, L500.4050, L501.6710, L3400.8000 #### [facility] [address] [place], [address] Globulin (S) [Mass/Vol] 3.3 g/dL Normal 2.2-4.2 [facility] Comment on above: Performed By: #### L 101.9900, L100.0100, L3000.0375, L500.4050, L501.6710, L3400.8000 #### [facility] [address] [place], [address] Glucose [Mass/Vol] 136 mg/dL High 70-99 [facility] Comment on above: Performed By: #### L 101.9900, L100.0100, L3000.0375, L500.4050, L501.6710, L3400.8000 #### [facility] [address] [place], [address] Potassium [Moles/Vol] 4.2 mmol/L Normal 3.3-5.1 [facility] Comment on above: Performed By: #### L 101.9900, L100.0100, L3000.0375, L500.4050, L501.6710, L3400.8000 #### [facility] [address] [place], [address] Sodium [Moles/Vol] 139 mmol/L Normal 133-145 [facility] Comment on above: Performed By: #### L 101.9900, L100.0100, L3000.0375, L500.4050, L501.6710, L3400.8000 #### [facility] [address] [place], [address] T PROT 7.7 g/dL Normal 5.9-8.4 [facility] Comment on above: Performed By: #### L 101.9900, L100.0100, L3000.0375, L500.4050, L501.6710, L3400.8000 #### [facility] [address] [place], [address] Urea nitrogen [Mass/Vol] 16 mg/dL Normal 4-19 [facility] Comment on above: Performed By: #### L 101.9900, L100.0100, L3000.0375, L500.4050, L501.6710, L3400.8000 #### [facility] [address] [place], [address] Eosinophil percentageOrdered By: Angie Wagner on 05-22-2025 Eosinophils/100 WBC (Bld) 0.0 % 0-5 [facility] Erythrocyte Sed Rateon 05-22 SED RATE 21 mm/hr High 0-20 [facility] Comment on above: Performed By: #### L 101.9900, L100.0100, L3000.0375, L500.4050, L501.6710, L3400.8000 #### [facility] [address] [place], [address] Erythrocyte distribution wid th ratioOrdered By: Angie Wagner on 05-22-2025 Erythrocyte distribution width (RBC) [Ratio] 12.4 % 11.6-14.6 [facility] Erythrocyte distribution wid th standard deviationOrdered By: Angie Wagner on 05-22-2025 Erythrocyte distribution width (RBC) [Ratio] 40.6 fl 35.1-43.9 [facility] Erythrocyte sedimentation ra teOrdered By: Angie Wagner on 05-22-2025 ESR (Bld) [Velocity] 21 mm/h High 0-20 [facility] Gastroenterology Visit Repor ton 05-22-2025 Gastroenterology Visit Report [facility] [address] [place] [address] OFFICE VISIT Date of Service: 05/22/25 MR#: [id number] Acct: [id number] Name: LASHONDA ALMONTE Rep #: [id number] : 1970 Provider: CINDY Jimenez Age/Sex: 55/M Location: [facility] [place] Status: Signed Intake Vital Signs 03/22/25 15:40 05/21/25 12:22 Height 5 ft 7 in 5 ft 7 in Weight: 170 lb BMI 26.6 Intake Visit Reasons: black stool, no appetite, dizzy, nausea Chief Complaint: crohns Allergies Penicillins (PCN) Allergy (Verified 03/22/25 15:43) Other Nurse's Note: OV 05/22/25 [facility] Medical History Gastric reflux Lumbar radiculopathy Lumbar strain Diastasis recti Schizophrenia Bipolar 1 disorder Wears glasses History of steroid therapy Arthritis High cholesterol Injury of back Non-smoker Right carpal tunnel syndrome Anger Anxiety Depression Crohn disease Surgical History Hx of hernia repair History of incisional hernia repair History of carpal tunnel surgery of right wrist History of resection of small bowel History of colonoscopy ( 2012) History of colonoscopy ( 2015) History of carpal tunnel release ( 2021) Family History Mother Asthma Cancer Father Hypertension Ulcer Brother Diabetes Social History household members: none Smoking Status: Former smoker alcohol intake: never HPI HPI Chief Complaint: crohns Details: LASHONDA ALMONTE, is a 55 M who presents to the office today for follow-up. [facility] ED 10.01.24 with cramping abd pain also having some nausea and vomiting. Endorses hx of Crohns disease. Labs revealing elevated wbc 13.2, platelets elevated 553. Given IV fluids, morphine and Zofran. Prescription for prednisone and Zofran and discharged. CT Abd/pelvis 10.01.24; Wall thickening and inflammation of the terminal ileum suggestive of terminal ileitis. BGI established 12.06.24 Diarrhea x2 months. Endorses PMHx of Crohns disease diagnosed and management by PCP. Pt takes prednisone during flares but does not daily medications. Pt with 20 lbs weight loss over the past few months. Colonoscopy 11.23.24; - Diverticulosis in the recto-sigmoid colon, in the sigmoid colon and in the descending colon. - Non-patent end-to-side ileo-colonic anastomosis, characterized by edema, erosion, erythema and ulceration. - No specimens collected EGD 11.23.24; - Normal esophagus. - Chronic gastritis. Biopsied. - Erythematous duodenopathy. Biopsied. Biochemical work up .04.04; platelets H, ESR 34 H, Alt H, CRP H Stool 2.05.04; calprotectin 926 H, Pancreatic elastase 191 L Last OV 12.08.24 TP continues to have stools, abd pain, body aches and fatigue. Budesonide makes loose stools worse. Started on Prednisone 40 mg. Awaiting Stelara approval. *INS denied Stelara. Skyrizi approved OV 02.28.25 Pt has been having diarrhea again over the past two weeks. Prior to this he was doing better. He is having 3-4 loose stools per day. He is loosing weight due to decreased appetite. He has not yet had his skyrizi infusion but is scheduled for it 03.02.25. He denies n/v, constipation, abd pain or blood in his stool. OV 05.22.25 patient has had 3 infusions of Skyrizi. His most recent infusion was May 11. Patient felt like he was doing well after starting the first 2 infusions however recently he has started to have loose stool again. He feels this is related to eating bad foods. Patient's primary care provider did start him on a course of prednisone recently. He has had a few episodes of black stool. ROS Const Constitutional: Positive for fatigue and weight change; No fever(s) ENT ENT: No difficulty swallowing Gastro GI: Positive for bloating, diarrhea, heartburn, excessive flatus, nausea/dyspepsia and vomiting; No abdominal pain, belching, change in bowel habits, change in stool character, coffee ground emesis, constipation, cramping, difficulty swallowing, feeling full early, incontinent of stools, Vomiting blood/hematemesis, Blood in stool, loose stools, Black,tarry stools, pain with swallowing or other Musc Musculoskeletal: Positive for numbness, tingling, Arthritis, sciatica and restless legs; No joint pain Skin Skin: No yellowing of the eye or itchy eyes Neuro Neurology: Positive for numbness, tingling and restless legs Psych Psychiatric: Positive for anxiety, (more content not included)... Normal [facility] Glomerular filtration rate ( GFR) estimation/1.73 sq m using serum, plasma, or whole bOrdered By: Angie Wagner on 05-22-2025 GFR/1.73 sq M.predicted among non-blacks MDRD (S/P/Bld) [Vol rate/Area] 96 mL/min/{1.73_m2} >60 [facility] Comment on above: mL/min/1.73m2 CKD-EP I Creatinine Equation (2020) Hematocrit Auto (Bld) [Volum e fraction]Ordered By: Angie Wagner on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 Race: H Location: EN Anesthesia Postop Eval I Sum Postop Eval Completion status Anesthesia document: Postop Eval 1 completed: Yes Anesthesia Postop Eval I Summary Anesthesia Postop Eval I Summary: Anesthesia Postop Eval I: Assessment Summary Airway patent Yes 11/23/24 14:24 [email or web address] Spontaneous unlabored Yes 11/23/24 14:24 [email or web address] respirations Mental status Asleep 11/23/24 14:24 [email or web address] nausea No 11/23/24 14:24 [email or web address] Vomiting No 11/23/24 14:24 [email or web address] Anesthesia Postop Eval I: Fluid Summary Crystalloid volume administer 60 11/23/24 14:24 [email or web address] (ml) Colloids volume administered ( ml) Blood Product volume administered (ml) Total IV fluid infused 60 11/23/24 14:24 [email or web address] Anesthesia Postop Eval I: Summary Notes Anesthesia Complication No 11/23/24 14:24 [email or web address] Anesthesia Complication Comment: Post-operative progress note Anesthesia: Postop Eval II Evaluation Mental status: Awake and Calm Pain Level: 0 nausea: No Vomiting: No Complications Anesthesia Complication: No 11/23/241829 Date Otf Frazier Signature: Date CC: Signed Normal [facility] Surgery Specimen Level Dimitris 11-23-2024 Surgery Specimen Level IV Patient Age/Sex Location Account Attending Physician LASHONDA ALMONTE Jolly ChinJuvencio 54/M EN [id number] Axel Nevarez DO Specimen: [id number] Received: 11/23/24 Status: CHYNA Devin Num: [id number] Spec Type: EGD BIOPSY Subm Dr: Axel Nevarez DO HEADER OPERATION: Colonoscopy, EGD, biopsy PRE-OP DIAGNOSIS: Heartburn, diarrhea TISSUE SUBMITTED: A- Duodenum biopsy, B- Gastric antrum biopsy, C- Ileum biopsy MICROSCOPIC DIAGNOSIS A. 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 Focal villous blunting. No significant increase in intraepithelial lymphocytes, not suggestive of Celiac disease. See comment. B. Gastric antrum, biopsy: Gastric mucosa with focal erosive gastritis with focal acute and chronic inflammation. See comment. C. Ileum, biopsy: Focal chronic active ileitis with focal erosion, ulceration , and granulation tissue formation. See comment. 11/27/2024 COMMENT A. The duodenal biopsy shows focal villous blunting and although the changes seen are more suggestive of peptic duodenitis with gastric metaplasia, and Celiac disease is not in evidence as there is no significant increase in intraepithelial lymphocytes, clinical correlation is necessary and if clinically helpful serology if clinically indicated may be helpful if Celiac is considered in the diagnosis clinically. B. The results of immunohistochemistry for Helicobacter pylori will be reported separately ([id number]). C. The ileal biopsy shows focal acute ileitis with erosion. The clinical history of Crohn's disease is noted. The changes seen in the ileal biopsy would be consistent with inflammatory bowel disease. Definitive granulomata are not identified. Clinical correlation is necessary. MICROSCOPIC DESCRIPTION Slides are reviewed. Patient Age/Sex Location Account Attending Physician LASHONDA ALMONTE Jr. 54/M EN [id number] Axel Nevarez DO GROSS DESCRIPTION A. Received in fixative is one container labeled with the patient's name and designated Duodenum biopsy. The specimen consists of one irregular fragment of light pulido soft tissue that measures 0.4 x 0.2 x 0.1 cm. The specimen is totally submitted in one cassette. B. Received in fixative is one container labeled with the patient's name and designated Gastric antrum biopsy. The specimen consists of one irregular fragment of light pulido soft tissue that measures 0.4 x 0.4 x 0.1 cm. The specimen is totally submitted in one cassette. C. Received in fixative is one container labeled with the patient's name and designated Ileum biopsy. The specimen consists of multiple irregular fragments of light pulido soft tissue that in aggregate measure 1.4 x 0.5 x 0.1 cm. The specimen is totally submitted in one cassette. MS/mr 11/24/2024 TC:3 [facility]:[id number] Patient Age/Sex Location Account Attending Physician LASHONDA ALMONTE Jr. 54/M EN [id number] Axel Nevarez DO Signed (signature on file) Dr. Kathleen Rudolph MD 11/27/24 1353 [facility] Comment on above: Performed By: #### P SUIV #### [facility] [address] [place], [place], [address] M7400.3302on 11-22-2024 M7400.3302 ___ [facility] ORIGINAL REPORT ON FILE IN LAB CONTAINS ADDITIONAL TEST SITE INFORMATION. ___ Giardia Lamblia EIA NEGATIVE [facility] Comment on above: Performed By: #### P SUIV #### [facility] [address] [facility] [address] [place], [place], [address] Ova and Parasites 8623on OP OVA AND PARASITES EX AM, ROUTINE These results were obtained using wet preparation(s) and trichrome stained smear. This test does not include testing for Crytosporidium parvum, Cyclospora, or Microsporidia. One negative specimen does not rule out the possibility of a parasitic infection. ___ TESTING PERFORMED AT [facility]. ORIGINAL REPORT ON FILE IN LAB CONTAINS ADDITIONAL TEST SITE INFORMATION. ___ Ova/Parasite Exam NO OVA, CYSTS, OR PARASITES FOUND. Normal [facility] Comment on above: Performed By: #### M 100.6796, L7000.0700, M7400.3302, M600.5000, L7000.0750, M100.637 ####[facility] [address] [place], [place], [phone] Calprotectin, Stoolon [address] 926 ug/g Abnormal 0-120 [facility] Comment on above: Result Comment: Re sults verified by repeat testing Concentration Interpretation Follow-Up < 5 - 50 ug/g Normal None >50 -120 ug/g Borderline Re-evaluate in 4-6 weeks >120 ug/g Abnormal Repeat as clinically indicated Performed at: [address] [id number] Livery Car Driver: Britta Crawley MD, Phone: [phone] Performed By: #### M 100.6796, L7000.0700, M7400.3302, M600.5000, L7000.0750, M100.637 ####[facility] [address] [place], [place], [phone]) L7000.0750on 11-20-2024 P ELASTASE,FECA 191 Low >200 [facility] Comment on above: Result Comment: Resu lt Units: ug Elast./g Severe Pancreatic Insufficiency: <100 Moderate Pancreatic Insufficiency: 100 - 200 Normal: >200 Performed at: [place] [id number] Livery Car Driver: Britta Crawley MD, Phone: [phone] Performed By: #### M 100.6796, L7000.0700, M7400.3302, M600.5000, L7000.0750, M100.637 ####[facility] [address] [place], [place], [phone] C. difficile DNA VAISHALI+probe Q l (Unsp spec)Ordered By: Angie Wagner on 11-17-2024 Clostridioides difficile (PCR) [facility] Clostridioides difficile (PCR) [facility] CDIFF (PCR)on 11-17-2024 CDIFF A positive C. diffic ile molecular test does not differentiate between an active C. difficile infection and C. difficile colonization. Use clinical judgement and paired toxin/antigen testing to identify true infection and need for treatment. C diff DNA Spec Ql VAISHALI+probe Reference Range: Negative [employer] GeneXpert: polymerase chain reaction (PCR) 027 027 NAP1-B1 Presumptive Negative *for epidemiolologic???use C. Diff PCR Negative- No toxigenic C. Diff Detected Normal [facility] Comment on above: Performed By: #### M 100.6796, L7000.0700, M7400.3302, M600.5000, L7000.0750, M100.637 ####[facility] [address] [place], [address] Calprotectin stoolOrdered By : Angie Wagner on 11-17-2024 Calprotectin stool 926 ug/g High 0-120 [facility] Comment on above: Results verified b y repeat testingConcentration Interpretation Follow-Up< 5 - 50 ug/g Normal None>50 -120 ug/g Borderline Re-evaluate in 4-6 weeks >120 ug/g Abnormal Repeat as clinically indicatedPerformed at: [address] [id number] Director: Britta Crawley MD, Phone: [phone] Stool Calprotectin 926 ug/g High 0-120 [facility] Comment on above: Results verified b y repeat testingConcentration Interpretation Follow-Up< 5 - 50 ug/g Normal None>50 -120 ug/g Borderline Re-evaluate in 4-6 weeks >120 ug/g Abnormal Repeat as clinically indicatedPerformed at: [facility] [address] [id number] Director: Britta Crawley MD, Phone: [phone] Clostridium difficile detect ion by polymerase chain reactionOrdered By: Angie Wagner on 11-17-2024 C. difficile DNA VAISHALI+probe Ql (Unsp spec) [facility] ENTERIC PATHOGEN PANEL STOOL on 11-17-2024 EP PANEL Normal Reference Ran ge = Not Detected Nucleic acid amplification test method Not detected for Campylobacter group, Salmonella species, Shigella species, Vibrio Group, Yersinia enterocolitica, EHEC (Shiga Toxin 1, Shiga Toxin 2), Norovirus Gl/Gll, and Rotavirus A. Other common stool pathogens are not detected on this panel include: Aeromonas/Plesiomonas or parasites. Order testing for these organisms separately if suspected. This is an amplified DNA test which makes it both specific and sensitive. CAMPYLOBACTER Not Detected Norovirus Not Detected Rotavirus Not Detected Salmonella Not Detected Shiga Toxin Not Detected Shigella sp. Not Detected VIBRIO Not Detected Yersinia Not Detected Normal [facility] Comment on above: Performed By: #### M 100.6796, L7000.0700, M7400.3302, M600.5000, L7000.0750, M100.637 ####[facility] [address] [place], [address] Elastase.pancreatic (Stl) [M ass/Mass]Ordered By: Angie Wagner on 11-17-2024 Stool Pancreatic Elastase 191 Low >200 [facility] Comment on above: Result Units: ug Luz Maria st./g Severe Pancreatic Insufficiency: <100 Moderate Pancreatic Insufficiency: 100 - 200 Normal: >200Performed at: [facility] [address] [id number] Director: Britta Crawley MD, Phone: [phone] Giardia lamblia antigen assa y by enzyme immunoassayOrdered By: Angie Wagner on 11-17-2024 Giardia Antigen (SOLO) [facility] Giardia Antigen (SOLO) [facility] Ova and parasitesOrdered By: Angie Wagner on 11-17-2024 Ova and Parasites [facility] Ova and Parasites [facility] Stool enteric pathogen panel by probe and target amplification methodOrdered By: Angie Wagner on 11-17-2024 Enteric Bacteriology [facility] Enteric Bacteriology [facility] Stool pancreatic elastase me asurement (mass/mass)Ordered By: Angie Wagner on 11-17-2024 Elastase.pancreatic (Stl) [Mass/Mass] 191 Low >200 [facility] Comment on above: Result Units: ug Luz Maria st./g Severe Pancreatic Insufficiency: <100 Moderate Pancreatic Insufficiency: 100 - 200 Normal: >200Performed at: - [facility] [address] [place], [place] [id number] Director: Britta Crawley MD, Phone: [phone] Absolute lymphocyte countOrd ered By: Angie Wagner on 11-16-2024 Lymphocytes Auto (Unsp spec) [#/Vol] 0.70 10*3/uL Low 0.83-4.51 [facility] Absolute neutrophil countOrd ered By: Angie Wagner on 11-16-2024 Neutrophils (Bld) [#/Vol] 7.5 10*3/uL 2.0-7.7 [facility] Albumin to globulin ratioOrd ered By: Angie Wagner on 11-16-2024 Albumin/Globulin [Mass ratio] 0.9 {ratio} 0.9-2.4 [facility] Automated lymphocyte count a s percentage of total leukocytesOrdered By: Angie Wagner on 11-16-2024 Lymphocytes/100 WBC Auto (Unsp spec) 8.2 % Low 19-41 [facility] Basophil percentageOrdered B y: Angie Wagner on 11-16-2024 Basophils/100 WBC (Bld) 0.2 % 0-1 [facility] Bilirubin, totalOrdered By: Angie Wagner on 11-16-2024 Bilirubin [Mass/Vol] 0.30 mg/dL 0.20-1.00 [facility] Comment on above: For patients on eltr ombopag therapy, use of Dimension [place] TBIL is not recommended. Blood urea nitrogen (BUN)/cr eatinine ratioOrdered By: Angie Wagner on 11-16-2024 Urea nitrogen/Creatinine [Mass ratio] 19.2 mg/mg 10-20 [facility] C-reactive protein measureme nt by high sensitivity methodOrdered By: Angie Wagner on 11-16-2024 C-Reactive Protein Extended Range 34.40 mg/L High 0.0-3.0 [facility] Comment on above: C-Reactive Protein ( CRP) provides useful information for thediagnosis, therapy and monitoring of inflammatory processesand associated diseases. For the evaluation of Relative Riskfor Cardiovascular Disease, a High Sensitivity CRP (HSCRP)should be ordered. C-reactive protein measurement by high sensitivity method 34.40 mg/L High 0.0-3.0 [facility] Comment on above: C-Reactive Protein ( CRP) provides useful information for thediagnosis, therapy and monitoring of inflammatory processesand associated diseases. For the evaluation of Relative Riskfor Cardiovascular Disease, a High Sensitivity CRP (HSCRP)should be ordered. CBC W/Diff, Automatedon 02-0 -2024 Absolute Lymph 0.70 X10 3/uL Low 0.83-4.51 [facility] Comment on above: Performed By: #### L 101.9900, L500.4050, L501.6710, L501.16188, L506.0400, L100.0100, L501.9520 ####[facility] [address] [place], [address] Absolute Neut 7.5 X10 3/uL Normal 2.0-7.7 [facility] Comment on above: Performed By: #### L 101.9900, L500.4050, L501.6710, L501.49290, L506.0400, L100.0100, L501.9520 ####[facility] [address] [place], [address] Basophils/100 WBC (Bld) 0.2 % Normal 0-1 [facility] Comment on above: Performed By: #### L 101.9900, L500.4050, L501.6710, L501.39555, L506.0400, L100.0100, L501.9520 ####[facility] [address] [place], [address] Eosinophils/100 WBC (Bld) 0.4 % Normal 0-5 [facility] Comment on above: Performed By: #### L 101.9900, L500.4050, L501.6710, L501.19073, L506.0400, L100.0100, L501.9520 ####[facility] [address] [place], [address] Erythrocyte distribution width (RBC) [Ratio] 12.6 % Normal 11.6-14.6 [facility] Comment on above: Performed By: #### L 101.9900, L500.4050, L501.6710, L501.38685, L506.0400, L100.0100, L501.9520 ####[facility] [address] [place], [address] Hematocrit (Bld) [Volume fraction] 41.8 % Normal 40-54 [facility] Comment on above: Performed By: #### L 101.9900, L500.4050, L501.6710, L501.23735, L506.0400, L100.0100, L501.9520 ####[facility] [address] [place], [address] Hemoglobin (Bld) [Mass/Vol] 13.5 g/dL Normal 13.0-16.5 [facility] Comment on above: Performed By: #### L 101.9900, L500.4050, L501.6710, L501.05926, L506.0400, L100.0100, L501.9520 ####[facility] [address] [place], [address] IG% 0.600 Normal 0.0-0.9 [facility] Comment on above: Result Comment: IG% - Immature Granulocytes (promyelocytes, myelocytes and metamyelocytes) > 1% indicates that a LEFT SHIFT is Present. Performed By: #### L 101.9900, L500.4050, L501.6710, L501.13806, L506.0400, L100.0100, L501.9520 ####[facility] [address] [place], [address] Lymphocytes/100 WBC (Bld) 8.2 % Low 19-41 [facility] Comment on above: Performed By: #### L 101.9900, L500.4050, L501.6710, L501.13943, L506.0400, L100.0100, L501.9520 ####[facility] [address] [place], [address] MCH (RBC) [Entitic mass] 29.3 pg Normal 27.0-32.0 [facility] Comment on above: Performed By: #### L 101.9900, L500.4050, L501.6710, L501.78964, L506.0400, L100.0100, L501.9520 ####[facility] [address] [place], [address] MCHC (RBC) [Mass/Vol] 32.3 g/dL Normal 32-36 [facility] Comment on above: Performed By: #### L 101.9900, L500.4050, L501.6710, L501.69514, L506.0400, L100.0100, L501.9520 ####[facility] [address] [place], [address] MCV (RBC) [Entitic vol] 90.7 fL Normal 80-94 [facility] Comment on above: Performed By: #### L 101.9900, L500.4050, L501.6710, L501.66404, L506.0400, L100.0100, L501.9520 ####[facility] [address] [place], [address] Monocytes/100 WBC (Bld) 3.0 % Normal 0-10 [facility] Comment on above: Performed By: #### L 101.9900, L500.4050, L501.6710, L501.00527, L506.0400, L100.0100, L501.9520 ####[facility] [address] [place], [address] Neutrophils/100 WBC (Bld) 87.6 % High 47-70 [facility] Comment on above: Performed By: #### L 101.9900, L500.4050, L501.6710, L501.88256, L506.0400, L100.0100, L501.9520 ####[facility] [address] [place], [address] Nucleated RBC (Bld) [#/Vol] 0 10*3/uL Normal 0-5 [facility] Comment on above: Performed By: #### L 101.9900, L500.4050, L501.6710, L501.64249, L506.0400, L100.0100, L501.9520 ####[facility] [address] [place], [address] Platelet mean volume (Bld) [Entitic vol] 9.8 fL Normal 6.2-12.0 [facility] Comment on above: Performed By: #### L 101.9900, L500.4050, L501.6710, L501.64806, L506.0400, L100.0100, L501.9520 ####[facility] [address] [place], [address] Platelets (Bld) [#/Vol] 480 10*3/uL High 150-450 [facility] Comment on above: Performed By: #### L 101.9900, L500.4050, L501.6710, L501.91521, L506.0400, L100.0100, L501.9520 ####[facility] [address] [place], [address] RBC (Bld) [#/Vol] 4.61 10*6/uL Normal 4.6-6.2 [facility] Comment on above: Performed By: #### L 101.9900, L500.4050, L501.6710, L501.03898, L506.0400, L100.0100, L501.9520 ####[facility] [address] [place], [address] RDW SD 41.6 fl Normal 35.1-43.9 [facility] Comment on above: Performed By: #### L 101.9900, L500.4050, L501.6710, L501.89270, L506.0400, L100.0100, L501.9520 ####[facility] [address] [place], [address] WBC (Bld) [#/Vol] 8.6 10*3/uL Normal 4.4-11.0 [facility] Comment on above: Performed By: #### L 101.9900, L500.4050, L501.6710, L501.13856, L506.0400, L100.0100, L501.9520 ####[facility] [address] [place], [address] CRPon 11-16-2024 C-REACTIVE PROT 34.40 mg/L High 0.0-3.0 [facility] Comment on above: Result Comment: C-Re active Protein (CRP) provides useful information for the diagnosis, therapy and monitoring of inflammatory processes and associated diseases. For the evaluation of Relative Risk for Cardiovascular Disease, a High Sensitivity CRP (HSCRP) should be ordered. Performed By: #### L 101.9900, L500.4050, L501.6710, L501.89186, L506.0400, L100.0100, L501.9520 ####[facility] [address] [place], [address] Carbon dioxide measurementOr dered By: Angie Wagner on 11-16-2024 CO2 [Moles/Vol] 22.0 mmol/L 21.0-32.0 [facility] Chloride measurementOrdered By: Angie Wagner on 11-16-2024 Chloride [Moles/Vol] 107 mmol/L 98-107 [facility] Comprehensive Metabolic Prof ilon 11-16-2024 Albumin [Mass/Vol] 3.8 g/dL Normal 3.2-5.0 [facility] Comment on above: Performed By: #### L 101.9900, L500.4050, L501.6710, L501.85493, L506.0400, L100.0100, L501.9520 ####[facility] [address] [place], [address] Albumin/Globulin [Mass ratio] 0.9 {ratio} Normal 0.9-2.4 [facility] Comment on above: Performed By: #### L 101.9900, L500.4050, L501.6710, L501.78422, L506.0400, L100.0100, L501.9520 ####[facility] [address] [place], [address] ALK P 95 U/L Normal 45-117 [facility] Comment on above: Performed By: #### L 101.9900, L500.4050, L501.6710, L501.19470, L506.0400, L100.0100, L501.9520 ####[facility] [address] [place], [address] ALT [Catalytic activity/Vol] 66 U/L High 16-61 [facility] Comment on above: Performed By: #### L 101.9900, L500.4050, L501.6710, L501.92341, L506.0400, L100.0100, L501.9520 ####[facility] [address] [place], [address] AST [Catalytic activity/Vol] 15 U/L Normal 15-37 [facility] Comment on above: Performed By: #### L 101.9900, L500.4050, L501.6710, L501.87640, L506.0400, L100.0100, L501.9520 ####[facility] [address] [place], [address] Bilirubin [Mass/Vol] 0.30 mg/dL Normal 0.20-1.00 [facility] Comment on above: Result Comment: For patients on eltrombopag therapy, use of Dimension [place] TBIL is not recommended. Performed By: #### L 101.9900, L500.4050, L501.6710, L501.33138, L506.0400, L100.0100, L501.9520 ####[facility] [address] [place], [address] BUN/CRE 19.2 RATIO Normal 10-20 [facility] Comment on above: Performed By: #### L 101.9900, L500.4050, L501.6710, L501.79585, L506.0400, L100.0100, L501.9520 ####[facility] [address] [place], [address] CA,Total 8.9 mg/dL Normal 8.5-10.1 [facility] Comment on above: Performed By: #### L 101.9900, L500.4050, L501.6710, L501.54775, L506.0400, L100.0100, L501.9520 ####[facility] [address] [place], [address] Chloride [Moles/Vol] 107 mmol/L Normal 98-107 [facility] Comment on above: Performed By: #### L 101.9900, L500.4050, L501.6710, L501.06762, L506.0400, L100.0100, L501.9520 ####[facility] [address] [place], [address] CO2 [Moles/Vol] 22.0 mmol/L Normal 21.0-32.0 [facility] Comment on above: Performed By: #### L 101.9900, L500.4050, L501.6710, L501.37888, L506.0400, L100.0100, L501.9520 ####[facility] [address] [place], [address] Creatinine [Mass/Vol] 0.89 mg/dL Normal 0.70-1.30 [facility] Comment on above: Result Comment: The validity of the calculated GFR GFRAA in patients over 70 years has not been determined. Clinical correlation is essential. Performed By: #### L 101.9900, L500.4050, L501.6710, L501.29328, L506.0400, L100.0100, L501.9520 ####[facility] [address] [place], [place], [id number] EST GFR - AA 115 mL/min Normal >60 [facility] Comment on above: Result Comment: Afri can [place] GFR Calc Performed By: #### L 101.9900, L500.4050, L501.6710, L501.13166, L506.0400, L100.0100, L501.9520 ####[facility] [address] [place], [address] GAP 7 Normal 5-15 [facility] Comment on above: Performed By: #### L 101.9900, L500.4050, L501.6710, L501.13836, L506.0400, L100.0100, L501.9520 ####[facility] [address] [place], [address] GFR/1.73 sq M.predicted among non-blacks MDRD (S/P/Bld) [Vol rate/Area] 95 mL/min/{1.73_m2} Normal >60 [facility] Comment on above: Result Comment: Non- GFR Calc Performed By: #### L 101.9900, L500.4050, L501.6710, L501.61982, L506.0400, L100.0100, L501.9520 ####[facility] [address] [place], [address] Globulin (S) [Mass/Vol] 4.1 g/dL Normal 2.2-4.2 [facility] Comment on above: Performed By: #### L 101.9900, L500.4050, L501.6710, L501.17391, L506.0400, L100.0100, L501.9520 ####[facility] [address] [place], [address] Glucose [Mass/Vol] 134 mg/dL High 74-106 [facility] Comment on above: Result Comment: Fast ing Glucose result greater than or equal to 126 mg/dL suggests DIABETES MELLITUS per A.D.A. criteria. Performed By: #### L 101.9900, L500.4050, L501.6710, L501.35973, L506.0400, L100.0100, L501.9520 ####[facility] [address] [place], [address] Potassium [Moles/Vol] 4.3 mmol/L Normal 3.5-5.1 [facility] Comment on above: Performed By: #### L 101.9900, L500.4050, L501.6710, L501.80018, L506.0400, L100.0100, L501.9520 ####[facility] [address] [place], [address] Sodium [Moles/Vol] 136 mmol/L Normal 136-145 [facility] Comment on above: Performed By: #### L 101.9900, L500.4050, L501.6710, L501.68772, L506.0400, L100.0100, L501.9520 ####[facility] [address] [place], [place], [id number] T PROT 7.9 g/dL Normal 6.4-8.2 [facility] Comment on above: Performed By: #### L 101.9900, L500.4050, L501.6710, L501.66524, L506.0400, L100.0100, L501.9520 ####[facility] [address] [place], [place], [id number] Urea nitrogen [Mass/Vol] 17 mg/dL Normal 7-18 [facility] Comment on above: Performed By: #### L 101.9900, L500.4050, L501.6710, L501.44376, L506.0400, L100.0100, L501.9520 ####[facility] [address] [place], [place], [address] Direct serum free thyroxine (FT4) measurementOrdered By: Angie Wagner on 11-16-2024 Free T4 [Mass/Vol] 1.08 ng/dL 0.76-1.46 [facility] Eosinophil percentageOrdered By: Angie Wagner on 11-16-2024 Eosinophils/100 WBC (Bld) 0.4 % 0-5 [facility] Erythrocyte Sed Rateon 11-16 SED RATE 34 mm/hr High 0-20 [facility] Comment on above: Performed By: #### L 101.9900, L500.4050, L501.6710, L501.88595, L506.0400, L100.0100, L501.9520 ####[facility] [address] [place], [place], [address] Erythrocyte distribution wid th ratioOrdered By: Angie Wagner on 11-16-2024 Erythrocyte distribution width (RBC) [Ratio] 12.6 % 11.6-14.6 [facility] Erythrocyte distribution wid th standard deviationOrdered By: Angie Wagner on 11-16-2024 Erythrocyte distribution width (RBC) [Entitic vol] 41.6 fL 35.1-43.9 [facility] Erythrocyte distribution width (RBC) [Ratio] 41.6 fl 35.1-43.9 [facility] Erythrocyte sedimentation ra teOrdered By: Angie Wagner on 11-16-2024 ESR (Bld) [Velocity] 34 mm/h High 0-20 [facility] Estimated glomerular filtrat ion rate (GFR) AmericanOrdered By: Angie Wagner on 11-16-2024 Estimated GFR (MDRD) Amer 115 mL/min >60 [facility] Comment on above: GFR Calc Free T3on 11-16-2024 Free T3 [Mass/Vol] 2.8 pg/mL Normal 2.18-3.98 [facility] Comment on above: Performed By: #### L 101.9900, L500.4050, L501.6710, L501.67307, L506.0400, L100.0100, L501.9520 ####[facility] [address] [place], [address] Free W5Vaewyio By: Angie almodovar on 11-16-2024 Free T3 [Mass/Vol] 2.8 pg/mL 2.18-3.98 [facility] Free Triiodothyronine (T3) pg/dL 2.8 pg/mL 2.18-3.98 [facility] Gastroenterology Visit Repor ton 11-16-2024 Gastroenterology Visit Report [facility] [address] [place] [address] OFFICE VISIT Date of Service: 11/16/24 MR#: [id number] Acct: [id number] Name: LASHONDA ALMONTE Jr. Rep #: [id number] : 1970 Provider: CINDY Jimenez Age/Sex: 54/M Location: [facility] Status: Signed Intake Vital Signs 11/02/24 15:45 Height 5 ft 7 in Weight: 171 lb BMI 26.7 Intake Visit Reasons: CROHN'S Chief Complaint: diarrhea Is patient in pain?: No Allergies Penicillins (PCN) Allergy (Verified 11/02/24 15:46) Other Medications ???Medication ???Instructions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 M.predicted among non-blacks MDRD (S/P/Bld) [Vol rate/Area] 78 mL/min/{1.73_m2} Normal >60 [facility] Comment on above: Result Comment: Non- GFR Calc Performed By: #### L 501.2450, L100.0100, L500.4050 ####[facility] [address] [place], [address] Globulin (S) [Mass/Vol] 5.1 g/dL High 2.2-4.2 [facility] Comment on above: Performed By: #### L 501.2450, L100.0100, L500.4050 ####[facility] [address] [place], [address] Glucose [Mass/Vol] 166 mg/dL High 74-106 [facility] Comment on above: Result Comment: Fast ing Glucose result greater than or equal to 126 mg/dL suggests DIABETES MELLITUS per A.D.A. criteria. Performed By: #### L 501.2450, L100.0100, L500.4050 ####[facility] [address] [place], [address] Potassium [Moles/Vol] 4.9 mmol/L Normal 3.5-5.1 [facility] Comment on above: Performed By: #### L 501.2450, L100.0100, L500.4050 ####[facility] [address] [place], [address] Sodium [Moles/Vol] 136 mmol/L Normal 136-145 [facility] Comment on above: Performed By: #### L 501.2450, L100.0100, L500.4050 ####[facility] [address] [place], [address] T PROT 9.7 g/dL High 6.4-8.2 [facility] Comment on above: Performed By: #### L 501.2450, L100.0100, L500.4050 ####[facility] [address] [place], [address] Urea nitrogen [Mass/Vol] 26 mg/dL High 7-18 [facility] Comment on above: Performed By: #### L 501.2450, L100.0100, L500.4050 ####[facility] [address] [place], [address] Emergency Department Summary on 10-01-2024 Emergency Department Summary [facility] Medical Records Department [address] [place] [address] Emergency Department Summary 10/01/24 MR#: [id number] Acct: [id number] Name: LASHONDA ALMONTE Jolly Morin Rep #: [id number] : 1970 54 From: Saqib Kuhn DO PCP: Dr. Magda Yarbrough MD Status:DEP ER Location: ED HPI HPI - GI History of Present Illness Chief Complaint: Abd Pain Informant: patient Abdominal Pain/Flank Pain Onset: Yesterday Context: Sudden Onset Timing: Continuous Quality: Cramping Location: Diffuse Worsened by: Nothing Relieved by: Nothing Nausea/Vomiting/Emesis GI Symptom: Positive for Nausea and Vomiting Quality: Positive for Nonbilious; Negative for Blood streaks, Coffee ground or Hematemesis Diarrhea/Melena/Hematochezi a GI Symptom: Positive for Diarrhea; Negative for Melena or Hematochezia Associated Symptoms Associated Symptoms: Negative for Dysuria, Frequency or Hematuria Narrative Narrative: Patient presents with abdominal pain that began yesterday after work. Patient states he went to work yesterday and when he got home he started having abdominal pain. Patient describes it as cramping. Patient states it is diffuse across his entire abdomen. Patient states nothing makes it better and nothing makes it worse. Patient admits to some nausea and vomiting. Patient denies any hematemesis or coffee-ground emesis. Patient admits to some diarrhea but denies any melena or hematochezia. Patient states he does have a history of Crohn's disease. Patient denies any urinary complaints. [facility] Medical History Lumbar radiculopathy Lumbar strain Diastasis recti Schizophrenia Bipolar 1 disorder Wears glasses History of steroid therapy Arthritis High cholesterol Injury of back Non-smoker Right carpal tunnel syndrome Anger Anxiety Depression Crohn disease Home Medications ???Medication ???Instructions ???Recorded ???Last Taken ???Type omeprazole 20 mg tablet,delayed 20 mg PO PRN PRN GERD 06/11/22 Unknown History release cholecalciferol (vitamin D3) 25 25 mcg PO DAILY 07/01/22 12/16/22 06:00 History mcg (1,000 unit) capsule (Vitamin D3) multivitamin 1 tab PO DAILY 07/01/22 12/16/22 06:00 History quetiapine 25 mg tablet 25 mg PO QHS 11/13/22 Unknown History mesalamine 400 mg capsule (with 800 mg (2 x 400 mg) PO BID #120 ea 07/05/23 Unknown Rx delayed release tablets inside) metronidazole 500 mg tablet 500 mg PO Q6H #40 tabs 07/05/23 Unknown Rx cyclobenzaprine 10 mg tablet 10 mg PO TID PRN Muscle Spasm #20 12/20/23 Unknown Rx TABLETS naproxen 500 mg tablet (Naprosyn) 500 mg PO BID PRN pain #20 tabs 12/20/23 Unknown Rx cyclobenzaprine 10 mg tablet 10 mg PO HS PRN muscle spasm #14 08/08/24 Unknown Rx tabs prednisone 10 mg tablet 10 mg PO DAILY #30 tabs 08/08/24 Unknown Rx ondansetron 4 mg disintegrating 4 mg PO Q8H PRN PRN Nausea #10 tabs 10/01/24 Unknown Rx tablet prednisone 20 mg tablet 60 mg (3 x 20 mg) PO DAILY #15 10/01/24 Unknown Rx TABLETS Allergy/AdvReac Type Severity Reaction Status Date / Time Penicillins (PCN) Allergy Other Verified 10/01/24 13:23 Family History Mother Asthma Cancer Father Hypertension Ulcer Brother Diabetes Surgical History History of incisional hernia repair History of carpal tunnel surgery of right wrist History of resection of small bowel History of colonoscopy ( 2012) History of colonoscopy ( 2015) History of carpal tunnel release ( 2021) Social History Smoking Status: Former smoker ROS ROS ED Constitutional Constitutional ED: Reports sweats; Denies chills or fever(s) Eyes Eyes: Reports blurry vision ENT ENT ED: Denies rhinorrhea or sore throat Cardiovascular Cardiovascular: Reports chest pain; Denies palpitations Respiratory/Chest Respiratory/Chest: Denies cough or dyspnea Gastrointestinal Gastrointestinal: Reports nausea and vomiting Genitourinary Genitourinary ED: Denies dysuria or hematuria Musculoskeletal Musculoskeletal: Denies back pain or neck pain Integumentary Denies abscess or rash Neurologic Neurologic: Reports headache(s); Denies weakness Allergic/Immunologic Allergic/Immunologic ED: Denies mouth swelling or urticaria EXAM Physical Exam Const Vital Signs: 10/01/24 13:23 10/01/24 15:22 Temperature 97.2 F L Temperature Source Temporal Pulse Rate 121 H 94 Respiratory Rate 20 H 16 Blood Pressure 130/80 H 120/73 Blood Pressure Mean 96 88 Pulse Ox 99 96 Oxygen Delivery Method Room Air Room Air Positive well nourished and well developed General Appearance ED: (more content not included)... Normal [facility] Eosinophil percentageOrdered By: Saqib Kuhn on 10-01-2024 Eosinophils/100 WBC (Bld) 0.5 % 0-5 [facility] Epithelial cells.squamous LM Ql (Urine sed)Ordered By: Saqib Kuhn on 10-01-2024 Epithelial cells.squamous LM.HPF (Urine sed) [#/Area] 0 /[HPF] 0-5 [facility] Erythrocyte distribution wid th ratioOrdered By: Saqib Kuhn on 10-01-2024 Erythrocyte distribution width (RBC) [Ratio] 13.0 % 11.6-14.6 [facility] Erythrocyte distribution wid th standard deviationOrdered By: Saqib Kuhn on 10-01-2024 Erythrocyte distribution width (RBC) [Entitic vol] 43.6 fL 35.1-43.9 [facility] Estimated glomerular filtrat ion rate (GFR) AmericanOrdered By: Saqib Kuhn on 10-01-2024 Estimated GFR (MDRD) Amer 94 mL/min >60 [facility] Comment on above: GFR Calc Estimation of creatinine ratna aranceOrdered By: Saqib Kuhn on 10-01-2024 Estimated Creatinine Clearance Calc 75.35 ml/min [facility] Glomerular filtration rate ( GFR) estimationOrdered By: Saqib Kuhn on 10-01-2024 Estimated GFR (MDRD) Non-Af Amer 78 mL/min >60 [facility] Comment on above: Non- GFR Calc Glucose Ql (U)Ordered By: Shon Kuhn on 10-01-2024 Urine Glucose (UA) Normal mg/dl Normal [facility] Glucose measurementOrdered B y: Saqib Kuhn on 10-01-2024 Glucose [Mass/Vol] 166 mg/dL High 74-106 [facility] Comment on above: Fasting Glucose resu lt greater than or equal to 126 mg/dL suggests DIABETES MELLITUS per A.D.A. criteria. Hematocrit Auto (Bld) [Volum e fraction]Ordered By: Saqib Kuhn on 10-01-2024 Hematocrit (Bld) [Volume fraction] 50.7 % 40-54 [facility] Hemoglobin measurementOrdere d By: Saqib Kuhn on 10-01-2024 Hemoglobin (Bld) [Mass/Vol] 16.1 g/dL 13.0-16.5 [facility] Immature granulocytes/100 WB C Auto (Bld)Ordered By: Saqib Kuhn on 10-01-2024 Immature granulocytes/100 WBC (Bld) 0.400 % 0.0-0.9 [facility] Comment on above: IG% - Immature Granu locytes (promyelocytes, myelocytes and metamyelocytes) > 1% indicates that a LEFT SHIFT is Present. Ketones Test strip Ql (U)Ord ered By: Saqib Kuhn on 10-01-2024 Ketones Ql (U) Negative Negative [facility] Laboratory - Chemistry and C hemistry - challengeOrdered By: Saqib Kuhn on 10-01-2024 AST [Catalytic activity/Vol] 13 U/L Low 15-37 [facility] Lipaseon 10-01-2024 Lipase [Catalytic activity/Vol] 32 U/L Normal 13-75 [facility] Comment on above: Result Comment: Plea se note: LIPASE revised reference range effective 23. New Lipase methodology. Expected to produce lower values than the previous assay method. NEW Reference Range: 13 - 75 U/L Performed By: #### L 501.2450, L100.0100, L500.4050 ####[facility] [address] [place], [address] Lipase measurementOrdered By : Saqib Kuhn on 10-01-2024 Lipase [Catalytic activity/Vol] 32 U/L 13-75 [facility] Comment on above: Please note:LIPASE r evised reference range effective 23. New Lipase methodology. Expected to produce lower values than the previous assay method. NEW Reference Range: 13 - 75 U/L Lymphocytes Auto (Unsp spec) [#/Vol]Ordered By: Saqib Kuhn on 10-01-2024 Lymphocytes (Bld) [#/Vol] 0.65 10*3/uL Low 0.83-4.51 [facility] Lymphocytes/100 WBC Auto (Un sp spec)Ordered By: Saqib Kuhn on 10-01-2024 Lymphocytes/100 WBC (Bld) 4.9 % Low 19-41 [facility] MCV (mean corpuscular volume ) determinationOrdered By: Saqib Kuhn on 10-01-2024 MCV (RBC) [Entitic vol] 90.9 fL 80-94 [facility] Mean corpuscular hemoglobin (MCH) determinationOrdered By: Saqib Kuhn on 10-01-2024 MCH (RBC) [Entitic mass] 28.9 pg 27.0-32.0 [facility] Mean corpuscular hemoglobin concentration (MCHC) determinationOrdered By: Saqib Kuhn on 10-01-2024 MCHC (RBC) [Mass/Vol] 31.8 g/dL Low 32-36 [facility] Mean platelet volume determi nationOrdered By: Saqib Kuhn on 10-01-2024 Platelet mean volume (Bld) [Entitic vol] 10.3 fL 6.2-12.0 [facility] Microscopic analysis of urin e for red blood cells (RBC)Ordered By: Saqib Kuhn on 10-01-2024 Urine RBC 0 SEEN /hpf 0-5 [facility] Monocyte percentageOrdered B y: Saqib Kuhn on 10-01-2024 Monocytes/100 WBC (Bld) 4.5 % 0-10 [facility] Mucus LM Ql (Urine sed)Order ed By: Saqib Kuhn on 10-01-2024 Mucus Ql (Urine sed) 0 SEEN /hpf [facility] Neutrophil percentageOrdered By: Saqib Kuhn on 10-01-2024 Neutrophils/100 WBC (Bld) 89.3 % High 47-70 [facility] Nitrite Test strip Ql (U)Ord ered By: Saqib Kuhn on 10-01-2024 Nitrite Ql (U) Negative Negative [facility] Nucleated red blood cell per centageOrdered By: Saqib Kuhn on 10-01-2024 Nucleated RBC/100 WBC (Bld) [Ratio] 0 % 0-5 [facility] Platelet countOrdered By: Shon Kuhn on 10-01-2024 Platelets (Bld) [#/Vol] 553 10*3/uL High 150-450 [facility] Potassium measurementOrdered By: Saqib Kuhn on 10-01-2024 Potassium [Moles/Vol] 4.9 mmol/L 3.5-5.1 [facility] Protein Test strip Ql (U)Ord ered By: Saqib Kuhn on 10-01-2024 Protein Ql (U) 15 mg/dl High Negative [facility] RBC Auto (Bld) [#/Vol]Ordere d By: Saqib Kuhn on 10-01-2024 RBC (Bld) [#/Vol] 5.58 10*6/uL 4.6-6.2 [facility] Serum anion gap measurementO rdered By: Saqib Kuhn on 10-01-2024 Anion gap [Moles/Vol] 9 mmol/L 5-15 [facility] Serum globulin measurementOr dered By: Saqib Kuhn on 10-01-2024 Globulin (S) [Mass/Vol] 5.1 g/dL High 2.2-4.2 [facility] Serum or plasma alanine esparza otransferase (ALT) measurementOrdered By: Saqib Kuhn on 10-01-2024 ALT [Catalytic activity/Vol] 49 U/L 16-61 [facility] Serum or plasma albumin elinor urement (mass/volume)Ordered By: Saqib Kuhn on 10-01-2024 Albumin [Mass/Vol] 4.6 g/dL 3.2-5.0 [facility] Serum or plasma alkaline kadeem sphatase measurementOrdered By: Saqib Kuhn on 10-01-2024 ALP [Catalytic activity/Vol] 108 U/L 45-117 [facility] Serum or plasma calcium elinor urement (mass/volume)Ordered By: Saqib Kuhn on 10-01-2024 Calcium [Mass/Vol] 10.7 mg/dL High 8.5-10.1 [facility] Serum or plasma creatinine m easurement (mass/volume)Ordered By: Saqib Kuhn on 10-01-2024 Creatinine [Mass/Vol] 1.06 mg/dL 0.70-1.30 [facility] Comment on above: The validity of the calculated GFR & GFRAA in patients over 70 years has not been determined. Clinical correlation is essential. Serum or plasma urea nitroge n measurement (mass/volume)Ordered By: Saqib Kuhn on 10-01-2024 Urea nitrogen [Mass/Vol] 26 mg/dL High 7-18 [facility] Sodium levelOrdered By: Saqib Kuhn on 10-01-2024 Sodium [Moles/Vol] 136 mmol/L 136-145 [facility] Total proteinOrdered By: Keyla Kuhn on 10-01-2024 Protein [Mass/Vol] 9.7 g/dL High 6.4-8.2 [facility] Urinalysis, Completeon 10-01 BACTERIA 0 SEEN Normal None Seen [facility] Comment on above: Order Comment: CLEAN CATCH Performed By: #### L 400.0001 ####[facility] [address] [place], [address] EPI,SQUAMOUS 0 SEEN Normal 0-5 [facility] Comment on above: Order Comment: CLEAN CATCH Performed By: #### L 400.0001 ####[facility] [address] [place], [address] Mucus Ql (Urine sed) 0 SEEN Normal [facility] Comment on above: Order Comment: CLEAN CATCH Performed By: #### L 400.0001 ####[facility] [address] [place], [address] RBC 0 SEEN Normal 0-5 [facility] Comment on above: Order Comment: CLEAN CATCH Performed By: #### L 400.0001 ####[facility] [address] [place], [address] WBC 0 SEEN Normal 0-5 [facility] Comment on above: Order Comment: CLEAN CATCH Performed By: #### L 400.0001 ####[facility] [address] [place], [address] Urine blood detectionOrdered By: Saqib Kuhn on 10-01-2024 Urine Occult Blood Negative Negative [facility] Urine clarityOrdered By: Keyla Kuhn on 10-01-2024 Clarity (U) Clear Clear [facility] Urine color determinationOrd ered By: Saqib Kuhn on 10-01-2024 Color (U) Yellow Yellow [facility] Urine leukocyte esterase det ection by dipstickOrdered By: Saqib Kuhn on 10-01-2024 Leukocyte esterase Test strip Ql (U) Negative Negative [facility] Urine pHOrdered By: Saqib simmons on 10-01-2024 pH (U) 5.0 [pH] 5.0 - 8.0 [facility] Urine sediment bacteria coun t by microscopy (number/high power field)Ordered By: Saqib Kuhn on 10-01-2024 Bacteria LM.HPF (Urine sed) [#/Area] 0 /[HPF] None Seen [facility] Urine specific gravity measu rementOrdered By: Saqib Kuhn on 10-01-2024 Specific gravity (U) [Rel density] 1.010 1.002-1.030 [facility] Urobilinogen Ql (U)Ordered B y: Saqib Kuhn on 10-01-2024 Urine Urobilinogen Normal mg/dl Normal [facility] White blood cell (WBC) count Ordered By: Saqib Kuhn on 10-01-2024 WBC (Bld) [#/Vol] 13.2 10*3/uL High 4.4-11.0 [facility] White blood cell countOrdere d By: Saqib Kuhn on 10-01-2024 Urine WBC 0 SEEN /hpf 0-5 [facility] Emergency Department Summary on 09-07-2024 Emergency Department Summary [facility] Medical Records Department [address] [place] [address] Emergency Department Summary 09/07/24 MR#: [id number] Acct: [id number] Name: LASHONDA ALMONTE Jr. Rep #: [id number] : 1970 54 From: Raffaele Webb DO PCP: Dr. Magda Yarbrough MD Status:DEP ER Location: ED HPI History of Present Illness Chief Complaint: Laceration Narrative Narrative: Chief complaint and HPI: Laceration. 54-year-old male presents for evaluation of laceration to the base of the right dorsal thumb. Patient states that this occurred yesterday afternoon while working on a car. He states that he has applied peroxide, alcohol, soap and water. Patient presented for further evaluation and possible repair. Unknown if tetanus is updated. Denies injury elsewhere. Denies any pain. No numbness or tingling. Review of systems: See HPI Medications: As listed on the chart Allergies: As listed on the chart PFSH: Per chart Vital signs: As listed on the chart. Reviewed. Physical exam: Gen: A O x3, NAD Head: Normocephalic, atraumatic Eyes: No sclera icterus, conjunctiva clear ENT: Moist mucous membranes CV: Regular rate Resp: Nonlabored respiration Musc: Full ROM of the thumb/all fingers/hand/wrist-all nontender to palpation, patient has a 2 cm laceration to the proximal/base of the right dorsal thumb-wound is clean without signs of infection, no active bleeding, radial/ulnar pulses plus 2 out of 4 bilaterally, good capillary refill, sensation intact PFSH PFSH Medical History Lumbar radiculopathy Lumbar strain Diastasis recti Schizophrenia Bipolar 1 disorder Wears glasses History of steroid therapy Arthritis High cholesterol Injury of back Non-smoker Right carpal tunnel syndrome Anger Anxiety Depression Crohn disease Home Medications ???Medication ???Instructions ???Recorded ???Last Taken ???Type omeprazole 20 mg tablet,delayed 20 mg PO PRN PRN GERD 06/11/22 Unknown History release cholecalciferol (vitamin D3) 25 25 mcg PO DAILY 07/01/22 12/16/22 06:00 History mcg (1,000 unit) capsule (Vitamin D3) multivitamin 1 tab PO DAILY 07/01/22 12/16/22 06:00 History quetiapine 25 mg tablet 25 mg PO QHS 11/13/22 Unknown History mesalamine 400 mg capsule (with 800 mg (2 x 400 mg) PO BID #120 ea 07/05/23 Unknown Rx delayed release tablets inside) metronidazole 500 mg tablet 500 mg PO Q6H #40 tabs 07/05/23 Unknown Rx cyclobenzaprine 10 mg tablet 10 mg PO TID PRN Muscle Spasm #20 12/20/23 Unknown Rx TABLETS naproxen 500 mg tablet (Naprosyn) 500 mg PO BID PRN pain #20 tabs 12/20/23 Unknown Rx cyclobenzaprine 10 mg tablet 10 mg PO HS PRN muscle spasm #14 08/08/24 Unknown Rx tabs prednisone 10 mg tablet 10 mg PO DAILY #30 tabs 08/08/24 Unknown Rx Allergy/AdvReac Type Severity Reaction Status Date / Time Penicillins (PCN) Allergy Other Verified 09/07/24 19:57 Family History Mother Asthma Cancer Father Hypertension Ulcer Brother Diabetes Surgical History History of incisional hernia repair History of carpal tunnel surgery of right wrist History of resection of small bowel History of colonoscopy ( 2012) History of colonoscopy ( 2015) History of carpal tunnel release ( 2021) Social History Smoking Status: Never smoker EXAM Physical Exam Const Vital Signs: 09/07/24 19:58 Temperature 98.7 F Temperature Source Oral Pulse Rate 96 Respiratory Rate 16 Blood Pressure 127/84 H Blood Pressure Mean 98 Pulse Ox 97 Oxygen Delivery Method Room Air MDM MDM MDM Narrative Medical decision making narrative: 54-year-old male presents for evaluation of laceration to the base of the right dorsal thumb. Onset of injury over 24 hours ago. Suture repair not offered given that the wound has been open for 24 hours and closure will increase infection. Patient was educated that wound needs to heal by secondary intention. Was educated on keeping it clean with soap and water as well as dry. Monitor for signs of infection. Neosporin or bacitracin as needed. Follow-up with PCP. Wound was dressed. Given his unknown tetanus, this was updated. Patient is stable to discharge home. He confirmed understanding. Impression: 1. 2 cm laceration to the base of the right dorsal forearm Discharge Plan Triage Chief Complaint: Laceration ED Provider: Raffaele Webb Dx/Rx/DC Orders Clinical Impression: Hand laceration Instructions: ED Laceration, Old: Not Sutured Prescriptions: No Action omeprazole 20 mg tablet,delayed release (DR/EC) 20 mg PO PRN PRN (Reason: GERD) Cindy (more content not included)... Normal [facility] Urgent Care Visit Reporton 1 Urgent Care Visit Report [facility] [address], [address] [place] [address] OFFICE VISIT Date of Service: 08/08/24 MR#: [id number] Acct: [id number] Name: LASHONDA ALMONTE Jr. Rep #: [id number] : 1970 Provider: CINDY Roberts Age/Sex: 54/M Location: [facility] Status: Signed Intake Vital Signs 12/20/23 20:41 08/08/24 16:43 Height 5 ft 7 in 5 ft 7 in Weight: 175 lb BMI 27.3 BP 122/76 H Blood Pressure Location Lt brachial Position Sitting Respiration 12 Pulse 104 H Pulse Source Monitor Temp 98.4 F Temp Source Oral Pulse Oximetry (%) 99 Oxygen Delivery Method room air Intake Visit Reasons: BACK PAIN/RADIATING DOWN L LEG Allergies Penicillins (PCN) Allergy (Verified 08/08/24 16:43) Other [facility] Medical History (Updated 08/08/24 @ 18:32 by Efrain WHITE, PA) Lumbar radiculopathy Lumbar strain Diastasis recti Schizophrenia Bipolar 1 disorder Wears glasses History of steroid therapy Arthritis High cholesterol Injury of back Non-smoker Right carpal tunnel syndrome Anger Anxiety Depression Crohn disease Surgical History History of incisional hernia repair History of carpal tunnel surgery of right wrist History of resection of small bowel History of colonoscopy ( 2012) History of colonoscopy ( 2015) History of carpal tunnel release ( 2021) Family History Mother Asthma Cancer Father Hypertension Ulcer Brother Diabetes Social History Smoking Status: Never smoker HPI HPI Details: LASHONDA ALMONTE, is a 54 M who presents to the office today for approximately 3-month history of progressively worsening low back pain with bilateral lower extremity paresthesias, though noting symptoms have remarkably worsened over the last 2 to 3 days, noting having loose stool though no urinary/fecal incontinence. No complaints of fever, chills, sweats. No history of recent back trauma/fall, stating he is unsure why his symptoms have worsened over the course of the last 3 days. Patient notes several months ago having been evaluated by orthospine surgeon at [facility], who told him he would need to have surgical revision of his lower lumbar spine but patient wanted to wait before going through with this. He now feels he is ready to follow-up with [facility] once again to consider surgery. He in the meantime would like to have his symptoms addressed to give him some comfort relief until then. He is declining physical therapy (as he notes this does not help and several months ago under [facility] direction) as well as declining lumbar x-rays today. No other complaints at this time. ROS Const Constitutional: No other (As above) Exam Const General: cooperative, healthy appearing and no acute distress Orientation: alert and awake Resp Effort Inspection: normal respiratory effort and able to speak in complete sentences Cardio Rate: regular rate Pulses: radial pulses present GI Inspection: normal to inspection Palpation: soft Musc Thoracic/Lumbar Spine: thoracic and lumbar spine normal to inspection, No surgical scar(s) present, pain with thoraco-lumbar ROM with forward flexion, with lateral flexion to the right, with lateral flexion to the left, with rotation to the right and with rotation to the left and straight leg raise positive (ble) Skin General: no rashes or lesions noted Neuro General: patient alert and patient awake Cognition: normal cognition Speech: speech normal Motor: muscle tone normal throughout Sensory Exam: no sensory deficits noted Extrem General: normal to inspection Psych Appearance: grossly normal Mental Status: mental status grossly normal Mood: congruent mood Affect: normal affect Speech and Movement: speech and movement normal Attitude: cooperative Coding Level of Care Code Off vis,new,level 3 Diagnoses Lumbar strain S39.012A Lumbar radiculopathy M54.16 Assessment and Plan Assessment and Plan (1) Lumbar strain: Status: Acute (2) Lumbar radiculopathy: Status: Acute Plan: Prednisone and Flexeril as prescribed today. Follow-up with orthospine surgeon first available appointment for reassessment and continuation of care. Patient states acknowledging understanding all the above and willing to comply. This note was generated with Panda[employer] dictation software. It may contain incorrect words, spelling, and punctuation that were not noted in checking the note before signing. Orders: Orders Lumbar Spine 2 or 3 Views Today M54.50 - Low back pain, unspecified Medications: New prednisone 4 tablets daily x3 days, then 3 tablets (more content not included)... Normal [facility] Influenza virus A and B and SARS-CoV-2 (COVID-19) Ag panel - Upper respiratory specimOrdered By: Sang Sweeney on 09-08-2023 SARS-CoV-2 (COVID-19) RNA VAISHALI+probe Ql (Resp) [facility] Upper respiratory specimen i nfluenza A virus, influenza B virus, and severe acute resOrdered By: aSng Sweeney on 09-08-2023 Upper respiratory specimen influenza A virus, influenza B virus, and severe acute res [facility] Absolute lymphocyte countOrd ered By: Lion Chen on 07-05-2023 Lymphocytes Auto (Unsp spec) [#/Vol] 1.50 10*3/uL 0.83-4.51 [facility] Basophil percentageOrdered B y: Lion Chen on 07-05-2023 Basophils/100 WBC (Bld) 0.5 % 0-1 [facility] Bilirubin [Mass/Vol] 0.20 mg/dL 0.20-1.00 [facility] Comment on above: For patients on eltr ombopag therapy, use of Dimension [place] TBIL is not recommended. Chloride [Moles/Vol] 108 mmol/L 98-107 [facility] Eosinophils/100 WBC (Bld) 2.8 % 0-5 [facility] Glucose [Mass/Vol] 128 mg/dL 74-106 [facility] Comment on above: Fasting Glucose resu lt greater than or equal to 126 mg/dL suggests DIABETES MELLITUS per A.D.A. criteria. Neutrophils (Bld) [#/Vol] 5.2 10*3/uL 2.0-7.7 [facility] Neutrophils/100 WBC (Bld) 66.7 % 47-70 [facility] Potassium [Moles/Vol] 4.3 mmol/L 3.5-5.1 [facility] Protein [Mass/Vol] 7.2 g/dL 6.4-8.2 [facility] Sodium [Moles/Vol] 140 mmol/L 136-145 [facility] WBC (Bld) [#/Vol] 7.9 10*3/uL 4.4-11.0 [facility] Blood erythrocytes count (nu mber/volume)Ordered By: Lion Chen on 07-05-2023 RBC (Bld) [#/Vol] 4.56 10*6/uL 4.6-6.2 [facility] Blood hemoglobin measurement (mass/volume)Ordered By: Lion Chen on 07-05-2023 Hemoglobin (Bld) [Mass/Vol] 13.4 g/dL 13.0-16.5 [facility] Blood lymphocytes/100 leukoc ytesOrdered By: Lion Chen on 07-05-2023 Lymphocytes/100 WBC (Bld) 19.1 % 19-41 [facility] Blood monocytes/100 leukocyt esOrdered By: Lion Chen on 07-05-2023 Monocytes/100 WBC (Bld) 10.6 % 0-10 [facility] Blood platelet mean volumeOr dered By: Lion Chen on 07-05-2023 Platelet mean volume (Bld) [Entitic vol] 10.2 fL 6.2-12.0 [facility] Determination of erythrocyte mean corpuscular volume (MCV)Ordered By: Lion Chen on 07-05-2023 MCV (RBC) [Entitic vol] 93.2 fL 80-94 [facility] Hematocrit Auto (Bld) [Volum e fraction]Ordered By: Lion Chen on 07-05-2023 Hematocrit (Bld) [Volume fraction] 42.5 % 40-54 [facility] Laboratory - Chemistry and C hemistry - challengeOrdered By: Lionjaswant Chen on 07-05-2023 ALP [Catalytic activity/Vol] 88 U/L 45-117 [facility] ALT [Catalytic activity/Vol] 54 U/L 16-61 [facility] CO2 [Moles/Vol] 26.0 mmol/L 21.0-32.0 [facility] Globulin (S) [Mass/Vol] 3.7 g/dL 2.2-4.2 [facility] Lipase [Catalytic activity/Vol] 51 U/L 13-75 [facility] Comment on above: Please note:LIPASE r evised reference range effective 23. New Lipase methodology. Expected to produce lower values than the previous assay method. NEW Reference Range: 13 - 75 U/L Urea nitrogen/Creatinine [Mass ratio] 20.2 mg/mg 10-20 [facility] - Hematology and Cell countsOrdered By: Lion Chen on 07-05-2023 Erythrocyte distribution width (RBC) [Entitic vol] 43.7 fL 35.1-43.9 [facility] Erythrocyte distribution width (RBC) [Ratio] 12.8 % 11.6-14.6 [facility] Immature granulocytes/100 WBC (Bld) 0.300 % 0.0-0.9 [facility] Comment on above: IG% - Immature Granu locytes (promyelocytes, myelocytes and metamyelocytes) > 1% indicates that a LEFT SHIFT is Present. MCH (RBC) [Entitic mass] 29.4 pg 27.0-32.0 [facility] Nucleated RBC/100 WBC (Bld) [Ratio] 0 % 0-5 [facility] MCHC Auto (RBC) [Mass/Vol]Or dered By: Lion Chen on 07-05-2023 MCHC (RBC) [Mass/Vol] 31.5 g/dL 32-36 [facility] No Panel InformationOrdered By: Lion Chen on 07-05-2023 Estimated Creatinine Clearance Calc 88.94 ml/min [facility] Estimated GFR (MDRD) Amer 108 mL/min >60 [facility] Comment on above: GFR Calc Estimated GFR (MDRD) Non-Af Amer 90 mL/min >60 [facility] Comment on above: Non- GFR Calc Platelets bldOrdered By: Bertha Chen on 07-05-2023 Platelets (Bld) [#/Vol] 318 10*3/uL 150-450 [facility] Serum or plasma albumin elinor urement (mass/volume)Ordered By: Lion Chen on 07-05-2023 Albumin [Mass/Vol] 3.5 g/dL 3.2-5.0 [facility] Serum or plasma albumin/glob ulin mass ratioOrdered By: Lion Chen on 07-05-2023 Albumin/Globulin [Mass ratio] 0.9 {ratio} 0.9-2.4 [facility] Serum or plasma calcium elinor urement (mass/volume)Ordered By: Lion Chen on 07-05-2023 Calcium [Mass/Vol] 8.3 mg/dL 8.5-10.1 [facility] Serum or plasma creatinine m easurement (mass/volume)Ordered By: Lion Chen on 07-05-2023 Creatinine [Mass/Vol] 0.94 mg/dL 0.70-1.30 [facility] Comment on above: The validity of the calculated GFR & GFRAA in patients over 70 years has not been determined. Clinical correlation is essential. Serum or plasma urea nitroge n measurement (mass/volume)Ordered By: Lion Chne on 07-05-2023 Urea nitrogen [Mass/Vol] 19 mg/dL 7-18 [facility] Thin prep Papanicolaou smear with manual screeningOrdered By: Lion Chen on 07-05-2023 Thin prep Papanicolaou smear with manual screening 15 U/L 15-37 [facility] Thin prep Papanicolaou smear with manual screening 6 5-15 [facility] Absolute lymphocyte countOrd ered By: Dr. aB on 09-16-2022 Lymphocytes Auto (Unsp spec) [#/Vol] 1.62 10*3/uL 0.83-4.51 [facility] Basophil percentageOrdered B y: Dr. Ba on 09-16-2022 Basophils/100 WBC (Bld) 0.8 % 0-1 [facility] Eosinophils/100 WBC (Bld) 2.7 % 0-5 [facility] Neutrophils (Bld) [#/Vol] 4.6 10*3/uL 2.0-7.7 [facility] Neutrophils/100 WBC (Bld) 61.5 % 47-70 [facility] WBC (Bld) [#/Vol] 7.4 10*3/uL 4.4-11.0 [facility] Blood erythrocytes count (nu mber/volume)Ordered By: Dr. Ba on 09-16-2022 RBC (Bld) [#/Vol] 4.94 10*6/uL 4.6-6.2 [facility] Blood hemoglobin measurement (mass/volume)Ordered By: Dr. Ba on 09-16-2022 Hemoglobin (Bld) [Mass/Vol] 14.6 g/dL 13.0-16.5 [facility] Blood lymphocytes/100 leukoc ytesOrdered By: Dr. Ba on 09-16-2022 Lymphocytes/100 WBC (Bld) 21.8 % 19-41 [facility] Blood monocytes/100 leukocyt esOrdered By: Dr. Ba on 09-16-2022 Monocytes/100 WBC (Bld) 10.8 % 0-10 [facility] Blood platelet mean volumeOr dered By: Dr. Ba on 09-16-2022 Platelet mean volume (Bld) [Entitic vol] 10.4 fL 6.2-12.0 [facility] Determination of erythrocyte mean corpuscular volume (MCV)Ordered By: Dr. Ba on 09-16-2022 MCV (RBC) [Entitic vol] 91.1 fL 80-94 [facility] Erythrocyte sedimentation ra teOrdered By: Dr. Ba on 09-16-2022 ESR (Bld) [Velocity] 34 mm/h 0-20 [facility] Hematocrit Auto (Bld) [Volum e fraction]Ordered By: Dr. Ba on 09-16-2022 Hematocrit (Bld) [Volume fraction] 45.0 % 40-54 [facility] - Hematology and Cell countsOrdered By: Dr. Ba on 09-16-2022 Erythrocyte distribution width (RBC) [Entitic vol] 43.8 fL 35.1-43.9 [facility] Erythrocyte distribution width (RBC) [Ratio] 13.1 % 11.6-14.6 [facility] Immature granulocytes/100 WBC (Bld) 2.400 % 0.0-0.9 [facility] Comment on above: IG% - Immature Granu locytes (promyelocytes, myelocytes and metamyelocytes) > 1% indicates that a LEFT SHIFT is Present. MCH (RBC) [Entitic mass] 29.6 pg 27.0-32.0 [facility] Nucleated RBC/100 WBC (Bld) [Ratio] 0 % 0-5 [facility] MCHC Auto (RBC) [Mass/Vol]Or dered By: Dr. Ba on 09-16-2022 MCHC (RBC) [Mass/Vol] 32.4 g/dL 32-36 [facility] Platelets bldOrdered By: Dr. Ba on 09-16-2022 Platelets (Bld) [#/Vol] 396 10*3/uL 150-450 [facility] Serum or plasma C reactive p rotein measurement (mass/volume)Ordered By: Dr. Ba on 09-16-2022 CRP [Mass/Vol] 12.10 mg/L 0.0-3.0 [facility] Comment on above: C-Reactive Protein ( CRP) provides useful information for thediagnosis, therapy and monitoring of inflammatory processesand associated diseases. For the evaluation of Relative Riskfor Cardiovascular Disease, a High Sensitivity CRP (HSCRP)should be ordered. CNPNon 07-05-2022 CNPN Telephone ([facility]) LASHONDA ALMONTE ([id number]) 1970 Date Time Provider Department 07/05/22 LAWANDA AMOS [facility] During your visit today, we recorded the following information about you: Lawanda Amos APRN.[employer] 07/05/2022 10:30 AM Signed Please notify that lab test negative for herpes/shingles. Continued with plan as discussed during visit. Alexandru Renterai MA 07/05/2022 11:40 AM Signed Verified results with pt. Pt verbalized understanding. Alexandru Renteria MA Allergies As of Date: 07/05/2022 Noted Allergy Reaction PENICILLINS 07/04/2022 5 - Intolerance Comments: Childhood allergy Date Reviewed: 07/04/2022 Reviewed by: Marley Casas LPN - Fully Assessed Reason for Visit: Results [95] Prescriptions as of 07/05/2022 - traZODone (DESYREL) 100 mg tablet Take 100 mg by mouth daily at bedtime. - ibuprofen (MOTRIN) 200 mg tablet Take 200 mg by mouth every 6 hours as needed. - valACYclovir (VALTREX) 1 gram Take 1 tablet by mouth three times daily for 7 days. Problem List As Of Date: 07/05/2022 (None) Encounter Status:Closed by ALEXANDRU RENTERIA on 07/05/22 [facility] CNOVon 07-04-2022 CNOV Office Visit ([facility] ) LASHONDA ALMONTE ([id number]) 1970 M Date Time Provider Department 07/04/22 11:00 AM KP ARMSTRONG [facility] During your visit today, we recorded the following information about you: Temperature Pulse Respiration Blood pressure 97.7 degrees 88/minute 14/minute 102/60 Weight 81.6 kg Kp Armstrong MD 07/04/2022 12:04 PM Signed Patient presents with: STD: Penis irritation x [...] relapsing infection, contagiousness, and treatment discussed. Kp Armstrong MD Referring Provider: SELF [200] Allergies As of Date: 07/04/2022 Noted Allergy Reaction PENICILLINS 07/04/2022 5 - Intolerance Comments: Childhood allergy Date Reviewed: 07/04/2022 Reviewed by: Marley Casas LPN - Fully Assessed Reason for Visit: STD [102] Cmt: Penis irritation x 3 days Primary Visit Diagnosis:Rash of penis [R21] Order(s):HSV 1,2/VZV AMP MOLECULAR DETECT [SQHSVVZV] Order #: [id number] FUTURE valACYclovir (VALTREX) 1 gramTake 1 tablet by mouth three times daily for 7 days.Disp: 21 tabletRfl: 0 HSV 1,2/VZV AMP MOLECULAR DETECT [SQHSVVZV] Order #: [id number]. #:[id number] Prescriptions as of 07/04/2022 - traZODone (DESYREL) 100 mg tablet Take 100 mg by mouth daily at bedtime. - ibuprofen (MOTRIN) 200 mg tablet Take 200 mg by mouth every 6 hours as needed. - valACYclovir (VALTREX) 1 gram Take 1 tablet by mouth three times daily for 7 days. Problem List As Of Date: 07/04/2022 (None) Prescriptions ordered this encounter Disp Refills Start End VALACYCLOVIR 1 GRAM TABLET 21 t* 0 07/04/2022 07/11/2022 Route: ORAL Sig: Take 1 tablet by mouth three times daily for 7 days. Encounter Status:Closed by KP ARMSTRONG on 07/04/22 Normal [facility] HSV+VZV DNA VAISHALI+probe Ql (Un sp spec)on 07-04-2022 HSV 1 DNA VAISHALI+probe Ql (Unsp spec) Negative for Herpes Simplex virus Type 1 by Nucleic Acid Amplification. Normal Negative [facility] Comment on above: Order Comment: Speci men Type: MICROBIAL ISOLATE Ordering Facility: [facility] Address: [address] [place] [address] Performed By: #### 3 3027-4 #### [facility] CLIA [id number] [address] [place] [address] [place] HSV 2 DNA AVISHALI+probe Ql (Unsp spec) Negative for Herpes Simplex virus Type 2 by Nucleic Acid Amplification. Normal Negative [facility] Comment on above: Order Comment: Speci men Type: MICROBIAL ISOLATE Ordering Facility: [facility] Address: [address] [place] [address] Performed By: #### 3 3027-4 #### [facility] CLIA [id number] [address] [place] [address] VZV DNA VAISHALI+probe Ql (Unsp spec) Negative for Varicella Zoster virus by Nucleic Acid Amplification. Normal Negative [facility] Comment on above: Order Comment: Speci men Type: MICROBIAL ISOLATE Ordering Facility: [facility] Address: [address] [place] [address] Performed By: #### 3 3027-4 #### [facility] CLIA [id number] [address] [place] [address] [place] Basophil percentageon 2021 C. trachomatis DNA VAISHALI+probe Ql (Unsp spec) Negative Negative [facility] Work Phone: [phone] Chloride [Moles/Vol] 106 mmol/L 98-107 [facility] Work Phone: [phone] Cholesterol [Mass/Vol] 193 mg/dL <200 [facility] Work Phone: [phone] Comment on above: <200 mg/dL Desirable 200-240 mg/dL Borderline >240 mg/dL High Risk Glucose [Mass/Vol] 94 mg/dL 74-106 [facility] Work Phone: [phone] Potassium [Moles/Vol] 3.9 mmol/L 3.5-5.1 [facility] Work Phone: [phone] Sodium [Moles/Vol] 137 mmol/L 136-145 [facility] Work Phone: [phone] Triglyceride [Mass/Vol] 182 mg/dL <199 [facility] Work Phone: [phone] Comment on above: The drugs N-Acetylcy steine and Metamizole may falsely depress this assay.Serum Triglycerides Reference Interval Normal <150 mg/dL Borderline high 150 - 199 mg/dL High 200 - 499 mg/dL Very High > or = 500 mg/dL Bilirubin Test strip Ql (U)o n 05-05-2022 Bilirubin Ql (U) Negative Negative [facility] Work Phone: HIV 1 and HIV-2 antibody ass ay with HIV-1 p24 antigen detectionon 05-05-2022 HIV 1+2 Ab+HIV1 p24 Ag IA Ql Non-Reactive Nonreactive [facility] Work Phone: Ketones Test strip Ql (U)on 05-05-2022 Ketones Ql (U) Negative Negative [facility] Work Phone: Laboratory - Chemistry and C hemistry - challengeon 05-05-2022 CO2 [Moles/Vol] 26.0 mmol/L 21.0-32.0 [facility] Work Phone: Urea nitrogen/Creatinine [Mass ratio] 16.0 mg/mg 10-20 [facility] Work Phone: Neisseria gonorrhoeae detect ion by PCRon 05-05-2022 N. gonorrhoeae DNA VAISHALI+probe Ql (Cervical mucus) Negative Negative [facility] Work Phone: Nitrite Test strip Ql (U)on 05-05-2022 Nitrite Ql (U) Negative Negative [facility] Work Phone: No Panel Informationon 05-05 Estimated GFR (MDRD) Amer 129 mL/min >60 [facility] Work Phone: Comment on above: GFR Calc Estimated GFR (MDRD) Non-Af Amer 106 mL/min >60 [facility] Work Phone: Comment on above: Non- GFR Calc Hepatitis B Core IgM Antibody Negative Negative [facility] Work Phone: Comment on above: Performed at: [address] [id number] Director: Ye Ramirez PhD, Phone: [phone] Hepatitis C Antibody Non-Reactive Nonreactive [facility] Work Phone: Comment on above: Non Reactive: < 0.8 Equivocal: >/= 0.8 to < 1.0 Reactive: >/= 1.0The [facility] recommends that a reactive/equivocal HCV antibody result be followed up by the HCV Nucleic Acid Amplificationtest ([id number]) Prostate Specific Antigen Screen 0.32 ng/mL 0.00-4.00 [facility] Work Phone: Comment on above: This test was perfor med using the TPSA assay method for [employer] chemistry system. Values obtained with differentassay methods cannot be used interchangably.When changing PSA assays in the course of monitoring apatient, additional sequential testing should be carriedout to confirm baseline values. Protein Test strip Ql (U)on 05-05-2022 Protein Ql (U) Negative Negative [facility] Work Phone: Serum Treponema species anti body detectionon 05-05-2022 Treponema sp Ab Ql (S) Non-Reactive [facility] Work Phone: Serum hepatitis B virus surf pilar antibody IgG detectionon 05-05-2022 HBV surface IgG Ql (S) Non-Reactive [facility] Work Phone: Comment on above: Non Reactive: Incons istent with immunity less than <10 mIU/mL Reactive: Consistent with immunity greater than or equal to 10 mIU/mL Serum or plasma calcium elinor urement (mass/volume)on 05-05-2022 Calcium [Mass/Vol] 9.6 mg/dL 8.5-10.1 [facility] Work Phone: Serum or plasma cholesterol in HDL measurement (mass/volume)on 05-05-2022 Cholesterol in HDL [Mass/Vol] 46 mg/dL >40 [facility] Work Phone: Comment on above: The drugs N-Acetylcy steine and Metamizole may falsely depress this assay. Reference Range HDL <40 mg/dL Low HDL Cholesterol HDL >or= 60 mg/dL High HDL Cholesterol Serum or plasma cholesterol in VLDL measurement (mass/volume)on 05-05-2022 Cholesterol in VLDL [Mass/Vol] 36 mg/dL 5-40 [facility] Work Phone: Serum or plasma creatinine m easurement (mass/volume)on 05-05-2022 Creatinine [Mass/Vol] 0.81 mg/dL 0.70-1.30 [facility] Work Phone: Comment on above: The validity of the calculated GFR & GFRAA in patients over 70 years has not been determined. Clinical correlation is essential. Serum or plasma low density lipoprotein (LDL) cholesterol measurement (mass/volume)on 05-05-2022 Cholesterol in LDL [Mass/Vol] 111 mg/dL 0-130 [facility] Work Phone: Serum or plasma urea nitroge n measurement (mass/volume)on 05-05-2022 Urea nitrogen [Mass/Vol] 13 mg/dL 7-18 [facility] Work Phone: Thin prep Papanicolaou smear with manual screeningon 05-05-2022 Thin prep Papanicolaou smear with manual screening 5 5-15 [facility] Work Phone: Urine blood detectionon 04-11 RBC Ql (U) Negative Negative [facility] Work Phone: Urine clarityon 05-05-2022 Clarity (U) Clear Clear [facility] Work Phone: Urine color determinationon 05-05-2022 Color (U) Yellow Yellow [facility] Work Phone: Urine glucose detectionon Glucose Ql (U) Normal mg/dl Normal [facility] Work Phone: Urine leukocyte esterase det ection by dipstickon 05-05-2022 Leukocyte esterase Test strip Ql (U) Negative Negative [facility] Work Phone: Urine pHon 05-05-2022 pH (U) 5.0 [pH] 5.0 - 8.0 [facility] Work Phone: Urine specific gravity measu rementon 05-05-2022 Specific gravity (U) [Rel density] 1.020 1.002-1.030 [facility] Work Phone: Urobilinogen Auto test strip Ql (U)on 05-05-2022 Urobilinogen Ql (U) Normal mg/dl Normal [facility] Work Phone: Vital Signs Date Time Vital Sign Value Performing Clinician Laura virk 05-21-2025 12:22-0400 Body height 170.18 cm Magda Yarbrough MD Work Phone: [facility] 03-22-2025 15:40-0400 Body height 170.18 cm Magda Yarbrough MD Work Phone: [facility] 03-22-2025 15:40-0400 Body mass index (BMI) [Ratio] 26.6 kg/m2 Magda Yarbrough MD Work Phone: [facility] 03-22-2025 15:40-0400 Body weight 77.11 kg Magda Yarbrough MD Work Phone: [facility] 11-23-2024 14:43-0500 Body temperature 98.9 [degF] Magda Yarbrough MD Work Phone: [facility] 11-23-2024 14:43-0500 Diastolic blood pressure 76 mm[Hg] Magda Yarbrough MD Work Phone: [facility] 11-23-2024 14:43-0500 Heart rate 71 /min Magda Yarbrough MD Work Phone: [facility] 11-23-2024 14:43-0500 Respiratory rate 16 /min Magda Yarbrough MD Work Phone: [facility] 11-23-2024 14:43-0500 SaO2% (BldA) [Mass fraction] 95 % Magda Yarbrough MD Work Phone: [facility] 11-23-2024 14:43-0500 Systolic blood pressure 109 mm[Hg] Magda Yarbrough MD Work Phone: [facility] 11-23-2024 12:57-0500 Body height 170.18 cm Magda Yarbrough MD Work Phone: 0(648)818-106769 [address] 11-23-2024 12:57-0500 Body mass index (BMI) [Ratio] 25.9 kg/m2 Magda Yarbrough MD Work Phone: [facility] 11-23-2024 12:57-0500 Body weight 75.29 kg Magda Yarbrough MD Work Phone: 8(976)732-484469 [address] 11-02-2024 15:45-0500 Body mass index (BMI) [Ratio] 26.7 kg/m2 Magda Yarbrough MD Work Phone: 9(922)011-495885 [place] [address] 11-02-2024 15:45-0500 Body weight 77.56 kg Magda Yarbrough MD Work Phone: 5(656)660-597969 [address] 10-01-2024 15:22-0500 Diastolic blood pressure 73 mm[Hg] Magda Yarbrough MD Work Phone: 8(291)587-653669 [address] 10-01-2024 15:22-0500 Heart rate 94 /min Magda Yarbrough MD Work Phone: 3(433)023-284569 [address] 10-01-2024 15:22-0500 Respiratory rate 16 /min Magda Yarbrough MD Work Phone: 9(531)383-375569 [address] 10-01-2024 15:22-0500 SaO2% (BldA) [Mass fraction] 96 % Magda Yarbrough MD Work Phone: 5(815)[phone] [address] 10-01-2024 15:22-0500 Systolic blood pressure 120 mm[Hg] Magda Yarbrough MD Work Phone: 3(666)[phone] [place] [address] 10-01-2024 13:23-0500 Body mass index (BMI) [Ratio] 26.3 kg/m2 Magda Yarbrough MD Work Phone: 0(129)558-635469 [address] 10-01-2024 13:23-0500 Body temperature 97.2 [degF] Magda Yarbrough MD Work Phone: 1(138)073-553069 [address] 10-01-2024 13:23-0500 Body weight 76.3 kg Magda Yarbrough MD Work Phone: 3(354)[phone] [place] [address] 09-07-2024 19:58-0500 Body mass index (BMI) [Ratio] 28.3 kg/m2 Magda Yarbrough MD Work Phone: [facility] 09-07-2024 19:58-0500 Body temperature 98.7 [degF] Magda Yarbrough MD Work Phone: [facility] 09-07-2024 19:58-0500 Body weight 81.87 kg Magda Yarbrough MD Work Phone: [facility] 09-07-2024 19:58-0500 Diastolic blood pressure 84 mm[Hg] Magda Yarbrough MD Work Phone: [facility] 09-07-2024 19:58-0500 Heart rate 96 /min Magda Yarbrough MD Work Phone: [facility] 09-07-2024 19:58-0500 Respiratory rate 16 /min Magda Yarbrough MD Work Phone: [facility] 09-07-2024 19:58-0500 SaO2% (BldA) [Mass fraction] 97 % Magda Yarbrough MD Work Phone: [facility] 09-07-2024 19:58-0500 Systolic blood pressure 127 mm[Hg] Magda Yarbrough MD Work Phone: [facility] 12-20-2023 20:41-0400 Body height 170.18 cm [facility] 12-20-2023 20:41-0400 Body mass index (BMI) [Ratio] 28.1 kg/m2 [facility] 12-20-2023 20:41-0400 Body temperature 97.2 [degF] [facility] 12-20-2023 20:41-0400 Body weight 81.64 kg [facility] 12-20-2023 20:41-0400 Diastolic blood pressure 67 mm[Hg] [facility] 12-20-2023 20:41-0400 Heart rate 85 /min [facility] 12-20-2023 20:41-0400 Respiratory rate 16 /min [facility] 12-20-2023 20:41-0400 SaO2% (BldA) [Mass fraction] 96 % [facility] 12-20-2023 20:41-0400 Systolic blood pressure 115 mm[Hg] [facility] 09-08-2023 11:48-0500 Body height 172.72 cm [facility] 09-08-2023 11:48-0500 Body mass index (BMI) [Ratio] 26.3 kg/m2 [facility] 09-08-2023 11:48-0500 Body temperature 97.8 [degF] [facility] 09-08-2023 11:48-0500 Body weight 78.49 kg [facility] 09-08-2023 11:48-0500 Diastolic blood pressure 89 mm[Hg] [facility] 09-08-2023 11:48-0500 Heart rate 78 /min [facility] 09-08-2023 11:48-0500 Respiratory rate 16 /min [facility] 09-08-2023 11:48-0500 SaO2% (BldA) [Mass fraction] 99 % [facility] 09-08-2023 11:48-0500 Systolic blood pressure 113 mm[Hg] [facility] 07-05-2023 05:31-0400 Diastolic blood pressure 72 mm[Hg] [facility] 07-05-2023 05:31-0400 Heart rate 81 /min [facility] 07-05-2023 05:31-0400 Respiratory rate 16 /min [facility] 07-05-2023 05:31-0400 SaO2% (BldA) [Mass fraction] 99 % [facility] 07-05-2023 05:31-0400 Systolic blood pressure 131 mm[Hg] [facility] 07-05-2023 03:47-0400 Body mass index (BMI) [Ratio] 27.1 kg/m2 [facility] 07-05-2023 03:47-0400 Body temperature 97.6 [degF] [facility] 07-05-2023 03:47-0400 Body weight 81.1 kg [facility] 12-17-2022 10:17-0500 Body temperature 97.2 [degF] Dr. Luis Goyal Work Phone: [facility] 12-17-2022 10:17-0500 Diastolic blood pressure 76 mm[Hg] Dr. Luis Goyal Work Phone: [facility] 12-17-2022 10:17-0500 Heart rate 77 /min Dr. Luis Goyal Work Phone: [facility] 12-17-2022 10:17-0500 Respiratory rate 16 /min Dr. Luis Goyal Work Phone: [facility] 12-17-2022 10:17-0500 SaO2% (BldA) [Mass fraction] 96 % Dr. Luis Goyal Work Phone: [facility] 12-17-2022 10:17-0500 Systolic blood pressure 116 mm[Hg] Dr. Luis Goyal Work Phone: [facility] 12-17-2022 08:45-0500 Inhaled oxygen flow rate 2 L/min Dr. Luis Goyal Work Phone: [facility] 12-17-2022 06:19-0500 Body height 172.[address] Luis Goyal Work Phone: [facility] 12-17-2022 06:19-0500 Body mass index (BMI) [Ratio] 27.2 kg/m2 Dr. Luis Goyal Work Phone: [facility] 12-17-2022 06:19-0500 Body weight 81.[address] Luis Goyal Work Phone: [facility] 11-13-2022 10:08-0500 Body height 170.[address] Luis Goyal Work Phone: [facility] 11-13-2022 10:08-0500 Body mass index (BMI) [Ratio] 29.9 kg/m2 Dr. Luis Goyal Work Phone: [facility] 11-13-2022 10:08-0500 Body temperature 97.4 [degF] Dr. Luis Goyal Work Phone: [facility] 11-13-2022 10:08-0500 Body weight 86.[address] Luis Goyal Work Phone: [facility] 11-13-2022 10:08-0500 Diastolic blood pressure 68 mm[Hg] Dr. Luis Goyal Work Phone: [facility] 11-13-2022 10:08-0500 Heart rate 78 /min Dr. Luis Goyal Work Phone: [facility] 11-13-2022 10:08-0500 Respiratory rate 18 /min Dr. Luis Goyal Work Phone: [facility] 11-13-2022 10:08-0500 SaO2% (BldA) [Mass fraction] 96 % Dr. Luis Goyal Work Phone: [facility] 11-13-2022 10:08-0500 Systolic blood pressure 112 mm[Hg] Dr. Luis Goyal Work Phone: [facility] 09-25-2022 10:40-0500 Body height 170.[address] Luis Goyal Work Phone: [facility] Work Phone: 07-21-2022 13:04-0400 Body weight 130.[address] Luis Goyal Work Phone: [facility] Work Phone: 07-08-2022 14:31-0400 Body temperature 97 [degF] DO Pamella Cordova Work Phone: [facility] Work Phone: 07-08-2022 14:31-0400 Diastolic blood pressure 71 mm[Hg] DO Pamella Cordova Work Phone: [facility] Work Phone: 07-08-2022 14:31-0400 Heart rate 59 /min DO Pamellabri Caraballonger Work Phone: [facility] Work Phone: 07-08-2022 14:31-0400 Respiratory rate 16 /min DO Pamella Caraballonger Work Phone: [facility] Work Phone: 07-08-2022 14:31-0400 SaO2% (BldA) [Mass fraction] 100 % DO Pamella Art Work Phone: [facility] Work Phone: 07-08-2022 14:31-0400 Systolic blood pressure 124 mm[Hg] DO Pamella Caraballonger Work Phone: [facility] Work Phone: 07-08-2022 06:34-0400 Body height 170.18 cm DO Pamella Art Work Phone: [facility] Work Phone: 07-08-2022 06:34-0400 Body mass index (BMI) [Ratio] 28.6 kg/m2 DO Pamella Art Work Phone: [facility] Work Phone: 07-08-2022 06:34-0400 Body weight 83 kg DO Pamellabri Caraballonger Work Phone: [facility] Work Phone: 06-11-2022 09:31-0400 Body mass index (BMI) [Ratio] 28.1 kg/m2 DO Pamella Caraballonger Work Phone: [facility] Work Phone: 06-11-2022 09:31-0400 Body weight 81.64 kg DO Pamella Caraballonger Work Phone: [facility] Work Phone: 03-22-2022 12:52-0400 Body height 170.18 cm [facility] Work Phone: 03-22-2022 12:52-0400 Body mass index (BMI) [Ratio] 26.6 kg/m2 [facility] Work Phone: 03-22-2022 12:52-0400 Body temperature 98.2 [degF] [facility] Work Phone: 03-22-2022 12:52-0400 Body weight 77.11 kg [facility] Work Phone: 03-22-2022 12:52-0400 Diastolic blood pressure 84 mm[Hg] [facility] Work Phone: 03-22-2022 12:52-0400 Heart rate 98 /min [facility] Work Phone: 03-22-2022 12:52-0400 Respiratory rate 17 /min [facility] Work Phone: 03-22-2022 12:52-0400 SaO2% (BldA) [Mass fraction] 94 % [facility] Work Phone: 03-22-2022 12:52-0400 Systolic blood pressure 110 mm[Hg] [facility] Work Phone: Encounters Encounter Date Encounter Type Care Provider Facility Start: 07-12-2025 End: 07-12-2025 Patient encounter procedure Angie WHITE -[facility] Work Phone: Start: 07-12-2025 End: 07-12-2025 ambulatory Magda Yarbrough MD Work Phone: [facility] Start: 06-05-2025 ambulatory Magda Yarbrough Facility:[facility] Start: 05-22-2025 End: 05-22-2025 Patient encounter procedure Angie WHITE [facility] Work Phone: Start: 05-22-2025 End: 05-22-2025 ambulatory Magda Yarbrough MD Work Phone: [facility] Start: 05-22-2025 End: 05-22-2025 ambulatory Magda Yarbrough Facility:[facility] Start: 03-22-2025 End: 03-22-2025 Patient encounter procedure Tonia WHITE -[facility] Work Phone: Start: 03-22-2025 End: 03-22-2025 ambulatory Magda Yarbrough MD Work Phone: [facility] Work Phone: Start: 03-06-2025 End: 03-06-2025 ambulatory Magda Yarbrough MD Work Phone: [facility] Work Phone: Start: 03-06-2025 End: 03-06-[address] Adilson Enciso [facility] Work Phone: Start: 03-06-2025 End: 03-06-2025 ambulatory Adilson Enciso Facility:[facility] Start: 03-01-2025 End: 03-01-2025 Patient encounter procedure Angie WHITE -[facility] Work Phone: Start: 03-01-2025 End: 03-01-2025 ambulatory Angie Wagner Facility:[facility] Start: 02-12-2025 End: 02-12-2025 ambulatory Chris Adair Facility:[facility] Start: 02-12-[address] Chris ibrahim MD -Physical Therapy Work Phone: Start: 01-15-2025 End: 01-15-2025 ambulatory Magda Yarbrough MD Work Phone: [facility] Work Phone: Start: 01-15-2025 End: 01-15-2025 Patient encounter procedure Angie WHITE -Laboratory Work Phone: Start: 01-15-2025 End: 01-15-2025 ambulatory Magda Yarbrough Facility:[facility] Start: 01-10-[address] Chris ibrahim MD -Physical Therapy Work Phone: Start: 12-12-2024 ambulatory Chris Adair Facility:[facility] Start: 12-08-2024 End: 12-08-2024 Patient encounter procedure Angie WHITE -[facility] Work Phone: Start: 12-08-2024 End: 12-08-2024 ambulatory Magda Zenon Facility:[facility] Start: 12-02-2024 End: 12-02-2024 ambulatory Magda Yarbrough MD Work Phone: [facility] Work Phone: Start: 12-02-2024 End: 12-02-2024 Patient encounter procedure Angie WHITE -Laboratory, Specimen Work Phone: Start: 12-01-2024 End: 12-01-[address] Magda Yarbrough MD -Cat Scan, [facility] Work Phone: Start: 12-01-2024 End: 12-02-2024 ambulatory [facility] Facility:[facility] Start: 11-23-2024 ambulatory Axel Nevarez Facility :[facility] Start: 11-23-2024 Non-patient / Non-visit Axel Nevarez DO -[facility] Start: 11-23-2024 End: 11-23-2024 Admission to same day surgery center Axel Nevarez DO -Endoscopy Work Phone: Start: 11-23-2024 End: 11-23-2024 ambulatory Axel Nevarez Facility:[facility] Start: 11-17-2024 End: 11-17-2024 Patient encounter procedure Angie WHITE -Laboratory Work Phone: Start: 11-16-2024 End: 11-16-2024 Patient encounter procedure Angie WHITE -[facility] Work Phone: Start: 11-16-2024 End: 11-17-2024 ambulatory [facility] Facility:[facility] Start: 11-16-2024 End: 11-16-2024 ambulatory [facility] Facility:[facility] Start: 11-02-2024 End: 11-02-[address] Chris Adair MD -[facility] Work Phone: Start: 11-02-2024 End: 11-02-2024 ambulatory Chalon Zenon Facility:[facility] Start: 10-01-2024 End: 10-01-2024 Emergency department patient visit Dr. Saqib Kuhn DO -Emergency Department Work Phone: Start: 09-07-2024 End: 09-07-2024 [facility] Work Phone: Start: 08-08-2024 End: 08-08-2024 ambulatory Chalon Zenon Facility:[facility] Start: 12-23-2023 End: 12-23-2023 ambulatory [facility] Work Phone: Start: 12-23-2023 End: 12-23-2023 Patient encounter procedure [facility] Work Phone: Start: 12-20-2023 End: 12-20-2023 Emergency department patient visit [facility]-Emergency Department Work Phone: Start: 09-08-2023 End: 09-08-2023 Emergency department patient visit [facility]Emergency Department Work Phone: Start: 07-05-2023 End: 07-05-2023 Emergency department patient visit [facility]Emergency Department Work Phone: Start: 12-17-2022 Non-patient / Non-visit Dr. Luis Goyal Work Phone: [facility] Start: 12-17-2022 End: 12-17-2022 Admission to same day surgery center Dr. Luis Goyal Work Phone: [facility] Start: 12-17-2022 End: 12-17-[address] Luis Goyal Work Phone: [facility] Work Phone: Start: 12-11-2022 End: 12-11-2022 Non-patient / Non-visit Dr. Luis Goyal Work Phone: [facility] Start: 12-02-2022 End: 12-02-[address] Luis Goyal Work Phone: [facility] Work Phone: Start: 12-02-2022 End: 12-02-[address] Luis Goyal Work Phone: [facility]-Pulmonary Services/Neurology Start: 11-13-2022 End: 11-13-[address] Luis Goyal Work Phone: [facility] Start: 11-02-[address] Aquilino Goyal Work Phone: [facility]-Occupational Therapy Start: 10-02-2022 End: 10-02-[address] Luis Goyal Work Phone: [facility] Start: 09-25-2022 End: 09-25-[address] Luis Goyal Work Phone: [facility] Start: 09-16-2022 End: 09-16-[address] Luis Goyal Work Phone: [facility] Work Phone: Start: 09-16-2022 End: 09-16-[address] Luis Goyal Work Phone: [facility] Start: 09-15-2022 End: 09-15-[address] Luis Goyal Work Phone: [facility] Start: 08-31-2022 End: 08-31-[address] Luis Goyal Work Phone: [facility] Work Phone: Start: 08-31-2022 End: 08-31-[address] Luis Goyal Work Phone: [facility] Start: 08-11-2022 End: 08-11-[address] Luis Goyal Work Phone: [facility] Start: 07-21-2022 End: 07-21-[address] Luis Goyal Work Phone: [facility] Start: 07-08-2022 Non-patient / Non-visit DO Pamella Cordova Work Phone: [facility] Start: 07-08-2022 End: 07-08-2022 Admission to same day surgery center DO Pamella Cordova Work Phone: [facility] Start: 07-08-2022 End: 07-08-2022 ambulatory DO Pamella Cordova Work Phone: [facility] Work Phone: Start: 07-05-2022 Telephone encounter Lawanda floyd APRN.CNP Work Phone: [facility] Comment on above: Results Start: 07-04-2022 End: 07-04-2022 ambulatory Facility:[facility] Start: 06-11-2022 End: 06-11-2022 Patient encounter procedure DO Pamella Cordova Work Phone: [facility] Start: 05-05-2022 End: 05-05-2022 Patient encounter procedure CINDY WHITE Work Phone: [facility] Start: 04-20-2022 End: 04-20-2022 Patient encounter procedure CINDY WHITE Work Phone: [facility] Start: 03-22-2022 End: 03-22-2022 Emergency department patient visit [facility]-Emergency Department Procedures Date Procedure Procedure Detail Performing Clinician Start: 05-22-2025 Hepatitis A virus antibody, IgM type Monika Yarbrough MD Work Phone: Comment on above: A negative anti-HAV IgM result suggests no recent orcurrent HAV infection. Start: 05-22-2025 Hepatitis B core antibody measurement, IgM type Magda Yarbrough MD Work Phone: Start: 05-22-2025 Hepatitis C antibody measurement Magda Yarbrough MD Work Phone: Start: 05-22-2025 In-vitro immunologic test Magda Yarbrough MD Work Phone: Comment on above: QuantiFERON-TB Gold Plus is a qualitativ e indirect test forM tuberculosis infection (including disease) and isintended for use in conjunction with risk assessment,radiography, and other medical and diagnostic evaluations.The QuantiFERON-TB Gold Plus result is determined bysubtracting the Nil value from either TB antigen (Ag)value. The Mitogen tube serves as a control for the test. No response to M tub erculosis antigens detected.Infection with M tuberculosis is unlikely, but high riskindividuals should be considered for additional testing(ATS/IDSA/CDC Clinical Practice Guidelines, 2017). Thereference range is an Antigen minus Nil result of <0.35IU/mL.The specimen received for QuantiFERON testing was incubatedby the ordering institution. Specific procedures outlinedin our Directory of Services and in the package insert forthe QuantiFERON Gold (In Tube) test must be followed toenable for proper stimulation of cells for the productionof interferon gamma. Chemiluminescence immunoassaymethodology Start: 03-06-2025 MRI of lumbar spine Magda Yarbrough MD Work Phone: Start: 01-15-2025 In-vitro immunologic test Magda Yarbrough MD Work Phone: Comment on above: QuantiFERON-TB Gold Plus is a qualitativ e indirect test forM tuberculosis infection (including disease) and isintended for use in conjunction with risk assessment,radiography, and other medical and diagnostic evaluations.The QuantiFERON-TB Gold Plus result is determined bysubtracting the Nil value from either TB antigen (Ag)value. The Mitogen tube serves as a control for the test. No response to M tub erculosis antigens detected.Infection with M tuberculosis is unlikely, but high riskindividuals should be considered for additional testing(ATS/IDSA/CDC Clinical Practice Guidelines, 2017). Thereference range is an Antigen minus Nil result of <0.35IU/mL.The specimen received for QuantiFERON testing was incubatedby the ordering institution. Specific procedures outlinedin our Directory of Services and in the package insert forthe QuantiFERON Gold (In Tube) test must be followed toenable for proper stimulation of cells for the productionof interferon gamma. Chemiluminescence immunoassaymethodologyPerformed at: [facility] [id number] Director: Ye Ramirez PhD, Phone: [phone] Start: 12-01-2024 Hepatitis A virus antibody, IgM type Monika Yarbrough MD Work Phone: Comment on above: A negative anti-HAV IgM result suggests no recent orcurrent HAV infection. Start: 12-01-2024 Hepatitis B core antibody measurement, IgM type Magda Yarbrough MD Work Phone: Start: 12-01-2024 Hepatitis C antibody measurement Magda Yarbrough MD Work Phone: Start: 12-01-2024 Computed tomography of abdomen and pelvis with contrast Magda Yarbrough MD Work Phone: Start: 11-17-2024 Clostridium difficile detection Magda ramirez MD Work Phone: Start: 11-17-2024 End: 11-17-2024 Giardia lamblia antigen assay Magda garg MD Work Phone: Start: 11-17-2024 Nucleic acid assay Magda Yarbrough MD Work Phone: Start: 11-17-2024 Ova OR parasites identification Magad ramirez MD Work Phone: Start: 11-17-2024 Iadna-dna/rna gi pthgn multiplex probe tq 6-11 Magda Yarbrough MD Work Phone: Start: 11-16-2024 Measurement of renal function Magda garg MD Work Phone: Comment on above: GFR Calc Start: 11-02-2024 X-ray of lumbosacral spine Magda Mcknight Work Phone: Start: 10-01-2024 Computed tomography of abdomen and pelvis with intravenous contrast Magda Yarbrough MD Work Phone: Start: 12-23-2023 Complete x-ray series of lumbar spine with bending views Start: 09-08-2023 SARS-CoV-2 & FLU Antigen (Rapid) Start: 09-08-2023 Viral antigen assay Start: 09-08-2023 Plain chest X-ray Start: 07-05-2023 Computed tomography of abdomen and pelvis with intravenous contrast Start: 12-17-2022 Repair of incisional hernia using surgical mesh Dr. Luis Goyal Work Phone: Start: 08-31-2022 X-ray of lumbosacral spine Dr. Aguila Goyal Work Phone: Start: 07-08-2022 Arthroscopy of ankle DO Pamella Cordova Work Phone: Plan of Treatment Date Care Activity Detail Author Start: 07-12-2025 Protein measurement [facility] Start: 05-22-2025 C reactive protein [Mass/volume] in Serum or Plasma [facility] Start: 05-22-2025 Comprehensive metabolic 2000 panel - Serum or Plasma [facility] Start: 12-01-2024 Tb cell mediated antign respnse gamma interferon TB TEST CELL IMMUN MEASURE [facility] Start: 11-23-2024 Colonoscopy w/biopsy single/multiple COLONOSCOPY AND BIOPSY [facility] Start: 11-23-2024 Egd transoral biopsy single/multiple EGD BIOPSY SINGLE/MULTIPLE [facility] Start: 11-23-2024 Patient discharge [facility] Start: 11-02-2024 Patient referral [facility] Work Phone: Start: 10-01-2024 [facility] Start: 09-07-2024 End: 09-07-2024 [facility] Start: 12-20-2023 [facility] Start: 09-08-2023 [facility] Start: 09-08-2023 [facility] Start: 12-17-2022 Patient discharge [facility] Start: 07-08-2022 Anes nerve muscle tdn fascia&bursa forearm wrist ANESTH LOWER ARM SURGERY [facility] Work Phone: Start: 07-08-2022 Ndsc wrst surg w/rls transvrs carpl ligm WRIST ENDOSCOPY/SURGERY [facility] Work Phone: Start: 07-08-2022 Patient discharge [facility] Work Phone: Start: 06-11-2022 Influenza vaccination INFLUENZA (#1) [facility] Start: 05-05-2022 Assay of prostate specific antigen total ASSAY OF PSA TOTAL [facility] Work Phone: Start: 2021 SHINGRIX VACCINE (1 of 2) SHINGRIX VACCINE (1 of 2) [facility] Start: 04-03-2021 COVID-19 VACCINE (3 - Booster for Moderna series) COVID-19 VACCINE (3 - Booster for Moderna series) [facility] Start: 2016 COLOGUARD (FIT-DNA) COLOGUARD (FIT-DNA) [facility] Start: 2016 Colonoscopy COLONOSCOPY [facility] Start: 2016 COLORECTAL CANCER SCREENING COLORECTAL CANCER SCREENING [facility] Start: [address] COLONOGRAPHY [facility] Start: 2016 DIABETES SCREEN DIABETES SCREEN [facility] Start: 2016 FECAL OCCULT BLOOD FECAL OCCULT BLOOD [facility] Start: 2016 SIGMOIDOSCOPY SIGMOIDOSCOPY [facility] Start: 2006 LIPID SCREEN LIPID SCREEN [facility] Start: 1990 Urine microalbumin profile DTAP,TDAP,TD (1 - Tdap) [facility] Start: 1989 HIV SCREENING HIV SCREENING [facility] Start: 1983 Adult depression screening assessment DEPRESSION SCREENING [facility] Start: 1971 HEPATITIS B (1 of 3 - 3-dose series) HEPATITIS B (1 of 3 - 3-dose series) [facility] Alanine aminotransfe rase [Enzymatic activity/volume] in Serum or Plasma [facility] Albumin [Mass/volume ] in Serum or Plasma [facility] Alkaline phosphatase [Enzymatic activity/volume] in Serum or Plasma [facility] Anion gap in Serum o Plasma [facility] Bilirubin, total measurement [facility] BUN/Creatinine ratio [facility] Calcium [Mass/volume ] in Serum or Plasma [facility] Carbon dioxide, tota l [Moles/volume] in Central venous blood [facility] Colonoscopy [facility] Creatinine [Mass/vol ume] in Serum or Plasma [facility] Glucose [Mass/volume ] in Serum or Plasma [facility] Hepatitis A virus Ig M Ab [Presence] in Serum [facility] Hepatitis B core ant ibody measurement, IgM type [facility] Work Phone: Hepatitis B core ant ibody measurement, IgM type [facility] Hepatitis B surface antigen measurement [facility] Hepatitis C antibody measurement [facility] In-vitro immunologic test [facility] Measurement of renal function [facility] MR Lumbar spine [facility] Mycobacterium tuberc ulosis tuberculin stimulated gamma interferon [Presence] in Blood [facility] Patient Education [facility] Work Phone: Patient referral [facility] Work Phone: Potassium measurement [facility] Serum chloride measurement [facility] Sodium measurement [facility] Total protein measurement [facility] Urea nitrogen [Mass/ volume] in Serum or Plasma [facility] Immunizations Immunization Date Immunization Notes Care Provider [facility] 09-07-2024 tetanus toxoid, redu nanette diphtheria toxoid, and acellular pertussis vaccine, adsorbed Magda Yarbrough MD Work Phone: [facility] Payers Date Payer Category Payer Self-pay [id number] 2024 Unknown [id number] 2024 Self-pay [id number] 2022 Unknown [id number] [facility] 2022 Unknown ANTHEM BLUE CARD PPO OOS [id number] 2022-Present [phone] [address] [place] [address] PPO [id number] Unknown [id number] Unknown [id number] [id number]2 Unknown [id number] 2.16.840.1.522848.3.579.2.462 Unknown [id number] 2.16.840.1.302009.3.579.2.462 Unknown [id number] 2.16.840.1.570924.3.579.2.462 Unknown [id number] 2.16.840.1.335970.3.579.2.462 Unknown [id number] 2.16.840.1.007159.3.579.2.462 Unknown [id number] 2.16.840.1.848709.3.579.2.462 Unknown [id number] 2.16.840.1.555413.3.579.2.462 Unknown [id number] 2.16.840.1.073451.3.579.2.462 Unknown [id number] 2.16.840.1.990111.3.579.2.462 Unknown [id number] 2.16.840.1.568659.3.579.2.462 Unknown [id number] 2.16.840.1.538170.3.579.2.462 Unknown [id number] 2.16.840.1.047871.3.579.2.462 Unknown [id number] 2.16.840.1.986942.3.579.2.462 Unknown [id number] 2.16.840.1.175725.3.579.2.462 Unknown [id number] 2.16.840.1.080172.3.579.2.462 Unknown [id number] 2.16.840.1.963727.3.579.2.462 Unknown [id number] 2.16.840.1.171616.3.579.2.462 Unknown [id number] 2.16.840.1.592999.3.579.2.462 Unknown [id number] 2.16.840.1.699804.3.579.2.462 Unknown [id number] 2.16.840.1.290711.3.579.2.462 Unknown [id number] 2.16.840.1.185279.3.579.2.462 Unknown [id number] 2.16840.1.712781.3.579.2.462 Social History Date Type Detail Facility Start: 03-22-2022 End: 12-20-2023 Tobacco smoking status MTIS Unknown if ever smoked [facility] Start: 1970 Sex Assigned At Male [facility] Start: 07-04-2022 [facility] Start: 07-04-2022 Tobacco use and exposure Smokeless tobacco non-user [facility] Start: 1970 Sex Assigned At Not on file [facility] Start: 06-24-2022 End: 07-04-2022 Exposure to SARS-CoV-2 (event) Unable to assess [facility] Work Phone: Start: 11-21-2024 End: 05-21-2025 Tobacco smoking status NHIS Ex-smoker (finding) [facility] Start: 12-14-2024 End: 01-18-2025 Sex Male (finding) [facility] Sex Male [facility] Medical Equipment Procedure Code Equipment Code Equipment Origin al Text Equipment Identifier Dates Repair, hernia, incisional, with mesh insertion MESH,VENTLEX ST SM 4.3CM FDA Start: 12-17-2022 Repair, hernia, incisional, with mesh insertion MESH,VENTLEX ST SM 4.3CM FDA Start: 12-17-2022 Repair, hernia, incisional, with mesh insertion MESH,VENTLEX ST SM 4.3CM FDA Start: 12-17-2022 Repair, hernia, incisional, with mesh insertion MESH,VENTLEX ST SM 4.3CM FDA Start: 12-17-2022 Repair, hernia, incisional, with mesh insertion MESH,VENTLEX ST SM 4.3CM FDA Start: 12-17-2022 Repair, hernia, incisional, with mesh insertion MESH,VENTLEX ST SM 4.3CM FDA Start: 12-17-2022 Repair, hernia, incisional, with mesh insertion MESH,VENTLEX ST SM 4.3CM FDA Start: 12-17-2022 Repair, hernia, incisional, with mesh insertion MESH,VENTLEX ST SM 4.3CM FDA Start: 12-17-2022 Repair, hernia, incisional, with mesh insertion MESH,VENTLEX ST SM 4.3CM FDA Start: 12-17-2022 Repair, hernia, incisional, with mesh insertion MESH,VENTLEX ST SM 4.3CM FDA Start: 12-17-2022 Repair, hernia, incisional, with mesh insertion MESH,VENTLEX ST SM 4.3CM FDA Start: 12-17-2022 Repair, hernia, incisional, with mesh insertion MESH,VENTLEX ST SM 4.3CM FDA Start: 12-17-2022 Goals Date Patient Goal Desired Activity /State Mental Status Date Assessment Result Facility 11-23-2024 Cognitive function Voice/Name [facility] Work Phone: 09-08-2023 Cognitive function Level Of Cons ciousness Awake;Alert;Appropriate;Follow s Commands [facility] Work Phone: 12-17-2022 Cognitive function Level Of Cons ciousness Awake;Drowsy [facility] Work Phone: 12-17-2022 Cognitive function Patient Orien tation Person;Place;Time [facility] Work Phone: 07-08-2022 Cognitive function Voice/Name [facility] Work Phone: Clinical Notes 07-04-2022 to 05-22-2025 Note Date & Type Note Facility 05-22-2025 Progress note [facility] 05-22-2025 Progress note Note Date/Time May 22, 2025 2:14pm [facility] [address] [place] [address] OFFICE VISIT Date of Service: 05/22/25 MR#: [id number] Acct: [id number] Name: LASHONDA ALMONTE Jr. Rep #: [id number] : 1970 Provider: CINDY Jimenez Age/Sex: 55/M Location: [facility] Status: Signed Intake Vital Signs 03/22/25 15:40 05/21/25 12:22 Height 5 ft 7 in 5 ft 7 in Weight: 170 lb BMI 26.6 Intake Visit Reasons: black stool, no appetite, dizzy, nausea Chief Complaint: crohns Allergies Penicillins (PCN) Allergy (Verified 03/22/25 15:43) Other Nurse's Note: OV 05/22/25 [facility] Medical History Gastric reflux Lumbar radiculopathy Lumbar strain Diastasis recti Schizophrenia Bipolar 1 disorder Wears glasses History of steroid therapy Arthritis High cholesterol Injury of back Non-smoker Right carpal tunnel syndrome Anger Anxiety Depression Crohn disease Surgical History Hx of hernia repair History of incisional hernia repair History of carpal tunnel surgery of right wrist History of resection of small bowel History of colonoscopy (~2012) History of colonoscopy (~2015) History of carpal tunnel release (~2021) Family History Mother Asthma Cancer Father Hypertension Ulcer Brother Diabetes Social History household members: none Smoking Status: Former smoker alcohol intake: never HPI HPI Chief Complaint: crohns Details: LASHONDA ALMONTE, is a 55 M who presents to the office today for follow-up. [facility] ED 10.01.24 with cramping abd pain also having some nausea and vomiting. Endorses hx of Crohns disease. Labs revealing elevated wbc 13.2, platelets elevated 553. Given IV fluids, morphine and Zofran. Prescription for prednisone and Zofran and discharged. CT Abd/pelvis 10.01.24; Wall thickening and inflammation of the terminal ileum suggestive of terminal ileitis. BGI established 12.06.24 Diarrhea x2 months. Endorses PMHx of Crohns disease diagnosed and management by PCP. Pt takes prednisone during flares but does not daily medications. Pt with 20 lbs weight loss over the past few months. Colonoscopy 11.23.24; - Diverticulosis in the recto-sigmoid colon, in the sigmoid colon and in the descending colon. - Non-patent end-to-side ileo-colonic anastomosis, characterized by edema, erosion, erythema and ulceration. - No specimens collected EGD 11.23.24; - Normal esophagus. - Chronic gastritis. Biopsied. - Erythematous duodenopathy. Biopsied. Biochemical work up .04.04; platelets H, ESR 34 H, Alt H, CRP H Stool 2.05.04; calprotectin 926 H, Pancreatic elastase 191 L Last OV 12.08.24 TP continues to have stools, abd pain, body aches and fatigue. Budesonide makes loose stools worse. Started on Prednisone 40 mg. Awaiting Stelara approval. *INS denied Stelara. Skyrizi approved OV 02.28.25 Pt has been having diarrhea again over the past two weeks. Prior to this he was doing better. He is having 3-4 loose stools per day. He is loosing weight due to decreased appetite. He has not yet had his skyrizi infusion but isscheduled for it 03.02.25. He denies n/v, constipation, abd pain or blood in his stool. OV 05.22.25 patient has had 3 infusions of Skyrizi. His most recent infusion wasAugust 1. Patient felt like he was doing well after starting the first 2 infusions however recently he has started to have loose stool again. He feels this is related to eating bad foods. Patient's primary care provider did start him on a course of prednisone recently. He has had a few episodes of black stool. ROS Const Constitutional: Positive for fatigue and weight change; No fever(s) ENT ENT: No difficulty swallowing Gastro GI: Positive for bloating, diarrhea, heartburn, excessive flatus, nausea/dyspepsia and vomiting; No abdominal pain, belching, change in bowel habits, change in stool character, coffee ground emesis, constipation, cramping, difficulty swallowing, feeling full early, incontinent of stools, Vomiting blood/hematemesis, Blood in stool, loose stools, Black,tarry stools, pain with swallowing or other Musc Musculoskeletal: Positive for numbness, tingling, Arthritis, sciatica and restless legs; No joint pain Skin Skin: No yellowing of the eye or itchy eyes Neuro Neurology: Positive for numbness, tingling and restless legs Psych Psychiatric: Positive for anxiety, Positive for depression, Positive for paranoia and Positive for hyperactivity Endo Endocrine: Positive for fatigue and weight change Aller/Imm Allergy/Immunologic: No itchy eyes Louis/Lymp Hematologic/Lymphatic: No easy bleeding or easy bruising Exam Const General: cooperative, healthy appearing and comfortable Orientation: alert HENMT Head: normal to inspection Eyes General: appearance normal, both eyes and all related structures Neck Neck: normal visual inspection Chest Chest palpation & inspection: normal inspection of the chest Resp Effort & Inspection: normal respiratory effort GI Inspection: normal to inspection Assessment and Plan Assessment and Plan (1) Crohn disease: Status: Acute Plan: Lashonda is a 55-year-old male patient here today for follow-up regarding his Crohn's. Patient established with our office in September 2024 due to severe diarrhea with history of Crohn's disease. Patient had no history of establishment with GI prior to this. Patient's PCP was treating his flares withintermittent prednisone. He underwent colonoscopy which showed Crohn's disease. Stool calprotectin was in the 900s. Patient was started on Skyrizi infusions and has had 3 infusions so far. He has not yet had injections. Patient was feeling well after the first 2 infusions however after the third his symptoms started to come back. He is now having diarrhea which is black on occasion. Hefeels this may be related to certain foods he is eating. I did instruct patientthat Skyrizi does not work immediately and it may take time for the drug level to build up in his blood. Patient did reach out to his PCP regarding his symptoms and his PCP did start him on a course of prednisone which I did not advise. He plans to start an anti-inflammatory diet. Will order CBC and CMP torule out acute blood loss. - Continue with Skyrizi - CBC and CMP - Anti-inflammatory diet - Follow-up in 3 months Orders: Orders CBC W/Diff, Automated Today K50.90 - Crohn's disease, unspecified, without complications Comprehensive Metabolic Profil Today K50.90 - Crohn's disease, unspecified, without complications Erythrocyte Sed Rate Today K50.90 - Crohn's disease, unspecified, without complications CRP Today K50.90 - Crohn's disease, unspecified, without complications Coding Level of Care Code Off vis,est,level 3 Diagnoses Crohn disease K50.90 05/22/25 1414 <Electronically signed by Angie WHITE> Date _ Angie WHITE Cosigner Signature: Date (if applicable) CC: ~ [facility] [employer] Work Phone: 1(278) 175-433806-12-2025 Evaluation note* Diagnosis Onset Date Resolution Status Admit Date Lumbar disc herniation acute 2024 3:39pm Lumbar radiculopathy acute March 22, 2025 3:39pm Crohn disease acute May 1:37pm Crohn disease acute July 3:23pm Crohn disease of ileum acute Oc 2024 3:23pm [facility] [employer] Work Phone: 1(501) 419-437105-22-2025 Evaluation note* Diagnosis Onset Date Resolution Status Admit Date Crohn disease acute March 01, 025 4:23pm Lumbar disc herniation acute 2024 3:39pm Lumbar radiculopathy acute March 22, 2025 3:39pm Crohn disease acute May 1:37pm [facility] [employer] Work Phone: 1(515) 432-601302-13-2025 Evaluation note* Diagnosis Onset Date Resolution Status Admit Date Diarrhea acute November 23, 2024 12:26pm Heartburn acute November 23, 2024 12:26pm Crohn disease of ileum acute Fe bruary 2024 4:12pm Crohn disease acute March 01, 025 4:23pm [facility] Work Phone: 1(854) 473-8410281110-06-1752 [facility] Medical Records Department [address] [place] [address] History Physical Exam 11/23/24 1339 MR#: [id number] Acct: [id number] Name: LASHONDA ALMONTE Jr. Rep #: [id number] : 1970 54 From: Axel Friend DO PCP: Dr. Magda Yarbrough MD Status:[facility] Location: EN HPI - General General Date of Admission: 11/23/24 Date of Service: 11/23/24 Chief Complaint: nausea, vomiting and Crohn's disease HPI Narrative LASHONDA ALMONTE, is a 54 M who presents for nausea, vomiting and Crohn's Disease [facility] ED 10.01.24 with cramping abd pain also having some nausea and vomiting. Endorses hx of Crohns disease. Labs revealing elevated wbc 13.2, platelets elevated 553. Given IV fluids, morphine and Zofran. Prescription for prednisone and Zofran and discharged. CT Abd/pelvis 10.01.24; Wall thickening and inflammation of the terminal ileum suggestive of terminal ileitis. Pt has been having issues with daily diarrhea for the past two months. He endorses a PMHx of Crohns disease diagnosed in 2008 after having a blockage that required abd surgery. Since then he has had multiple colonoscopies. He has never seen a GI before and is being treated by his PCP. He tells me he takes prednisone during flares but nothing on a daily basis for treatment. His PCP prescribed prednisone recently but this just made his diarrhea worse. Similarly, Budesonide made his symptoms worse. He endorses a 20 lbs unintentional weight loss over the past 2 months. He is having loose stool soon after eating. He is also having nocturnal diarrhea that wakes him up at night. He has felt feverish but has not checked his temperature. He has not had a colonoscopy in over 10 years. [facility] Medical History Gastric reflux Lumbar radiculopathy Lumbar strain Diastasis recti Schizophrenia Bipolar 1 disorder Wears glasses History of steroid therapy Arthritis High cholesterol Injury of back Non-smoker Right carpal tunnel syndrome Anger Anxiety Depression Crohn disease Home Medications ???Medication ???Instructions ???Recorded ???Last Taken ???Type budesonide 3 mg 3 mg PO QDAY 11/16/24 11/22/24 His tory capsule,delayed,extended release Allergy/AdvReac Type Severity Reaction Status Date / Time Penicillins (PCN) Allergy Other Verified 11/23/24 12:56 Family History Mother Asthma Cancer Father Hypertension Ulcer Brother Diabetes Surgical History Hx of hernia repair History of incisional hernia repair History of carpal tunnel surgery of right wrist History of resection of small bowel History of colonoscopy ( 2012) History of colonoscopy ( 2015) History of carpal tunnel release ( 2021) Social History household members: none Smoking Status: Former smoker alcohol intake: never ROS Constitutional Constitutional: Denies fatigue, fever(s), poor appetite, weight gain or weight loss Gastrointestinal Gastrointestinal: Denies belching, bloating, change in bowel habits, change in stool character, chewing difficulty, coffee ground emesis, constipation, cramping, diarrhea, dyspepsia, dysphagia, early satiety, excessive flatus, fecal incontinence, heartburn, hematemesis, hematochezia, hemorrhoids, loose stools, melena, nausea, odynophagia, rectal bleeding, tenesmus, vomiting or weight changes Vital Signs Vital Signs Vital Signs: 11/23/24 12:57 11/23/24 12:57 Temperature 97.9 F Temperature Source Temporal Pulse Rate 76 Respiratory Rate 16 Respiratory Pattern Normal Blood Pressure 123/72 H Blood Pressure Mean 89 Blood Pressure Source Monitor Blood Pressure Position Semi-Fowlers Blood Pressure Location Left Arm Pulse Ox 99 Oxygen Delivery Method Room Air Weight Weight: 166 lb Body Mass Index (BMI) 25.9 Physical Exam Const alert, oriented x3, no apparent distress and healthy appearing General Appearance: cooperative GI normal to inspection, nondistended, normoactive bowel sounds, soft to palpation, non-tender and non- distended Percussion: normal to percussion Rectal Exam: deferred Assessment Plan Assessment/Plan (1) Heartburn: (2) Diarrhea: PLAN: Plan Assessment and Plan Assessment and Plan (1) Abdominal pain: Status: Chronic Plan: THis is a 54 yo male pt here today for evaluation of 2 months of diarrhea. PT has a PMHx of Crohns disease diagnosed in 2008. Pt presented to the ED in [address] showing ileitis. He has not had a colonoscopy in over 10 years. He is not on any treatment for prevention of IBD flares and is just being treated intermittent (more content not included)...[facility]02-06-2025 Evaluation note* Diagnosis Onset Date Resolution Status Admit Date Diarrhea acute November 16, 2024 3:16pm Abdominal pain chronic November 162024 3:16pm Diarrhea acute November 23, 2024 12:26pm Heartburn acute November 23, 2024 12:26pm Crohn disease of ileum acute Fe bruary 2024 4:12pm Crohn disease acute March 01 4:23pm [facility] Work Phone: 1(550) 394-392501-23-2025 Evaluation note* Diagnosis Onset Date Resolution Status Admit Date Lumbar disc herniation acute Ja nuary 2024 3:30pm Lumbar radiculopathy acute Devendra raul 2024 3:30pm Diarrhea acute November 16, 2024 3:16pm Abdominal pain chronic November 162024 3:16pm Diarrhea acute November 23, 2024 12:26pm Heartburn acute November 23, 2024 12:26pm Crohn disease of ileum acute Fe bruary 2024 4:12pm [facility] Work Phone: 1(756) 874-866603-11-2024 Hospital Discharge instructions Additional Instructions Use albuterol inhaler 2 puffs every 2-4 hours as needed for wheezing. Ice to back/hips for pain. Naproxen as needed to help decrease inflammation. Take with food. Flexeril as needed for spasms. No driving or operating heavy equipment with Flexeril. Prednisone as prescribed. Followup w/Dr Goyal in 2 weeks.[facility] Work Phone: 1(258) 103-279203-09-[address] Hairston [facility] December 17, 2022 8:17am Note Date/Time December 17, 2022 8:15 am [facility] Medical Records Department [address] [place] [address] Instructions for Home/Discharge Instructions 12/17/22 0815 MR#: [id number] Acct: [id number] Name: LASHONDA ALMONTE Jr. Rep #:[id number] : 1970 52 From: Yeny Hairston MD PCP: Dr. Luis Goyal MD Status: REG [facility] Discharge Instructions Diet Discharge Diet: Light diet - advance as tolerated Activity May shower in (days): 5 (Keep umbilical dressing clean dry and intact for 5 days. Okay to tape off with a Ziploc bag to shower. Or lower shower and upper sponge bath.) Lifting Restrictions: no lifting >20 lbs x 2 wks, no strenuous exercise for 4 wks Additional Activity Instructions:: - Dressing / Incision Call your doctor if your incision/area has: Continuous Slow Oozing, Sudden Increased Bleeding, Increased Pain/ Swelling, Increased Redness, Foul Smelling Discharge and Swelling at the incision site Call your doctor if you observe: Fever of 101 or Higher Remove Dressing in: 5 days (After 5 days okay to remove surgical dressing. Place cotton ball or rolled up gauze in bellybutton and retape daily for 2 more days.) Cleanse incision/area with: Do not get Incision Wet (for 5 days) Additional Dressing/Incision Instructions:: Steri-Strips will fall off in 7 to 10 days, if they do not fall off okay to remove after 10 days. Follow Up Care Please Follow Up With: Yeny Hairston MD When: Call the office for a follow-up appointment 2 weeks; after 5 PM and on call [phone] with any concerns. Test Results: Test results from this visit will be discussed in further detail at your follow- up appointment, if applicable. Discharge Plan Admission Attending Provider: Yeny Hairston Primary Care Provider: Luis Goyal Discharge Orders/Prescriptions Prescriptions: New oxycodone-acetaminophen 5-325 mg tablet 1 - 2 tab PO Q6H PRN (Reason: pain) 3 Days Qty: 14 0RF Continued omeprazole 20 mg tablet,delayed release (DR/EC) 20 mg PO PRN PRN (Reason: GERD) Label Comments: TAKE 1 TABLET BY MOUTH EVERY DAY acetaminophen [Tylenol] 325 mg capsule 325 mg PO ONCE PRN (Reason: Pain) meloxicam 7.5 mg tablet 15 mg PO DAILY quetiapine 25 mg tablet 25 mg PO QHS Label Comments: take 1 or 2 tablets by oral route at bedtime. multivitamin Tablet 1 tab PO DAILY cholecalciferol (vitamin D3) [Vitamin D3] 25 mcg (1,000 unit) Capsule 25 mcg PO DAILY Referrals / Follow Up: Luis Goyal MD [Primary Care Provider] - Disposition Disposition (needs filled in before D/C Order can be placed): Home, Self Care 12/17/22 0817<Electronically signed by Yeny Hairston MD>Yeny Hairston MD CC: Dr. Luis Goyal MD ~ Signed [facility] Work Phone: 1(103) 729-522303-09-2023 History and physical note Author Dr. Hairston [facility] December 17, 2022 7:16am Note Date/Time December 17, 2022 7:15 am [facility] Medical Records Department [address] [place] [id number] H&P Exam - Surgical 12/17/2213 MR#: [id number] Acct: [id number] Name: RACHELLASHONDA Jolly Morin Rep #:[id number] : 1970 52 From: Yeny Hairston MD PCP: Dr. Luis Goyal MD Status: [facility] Location: [place] [address] HPI - General General Date of Admission: 12/17/22 HPI Narrative LASHONDA ALMONTE, is a 52 M who presents Office visit 11/13/22 HPI: 52 y/o M presents due to incisional hernia at umbilicus.? Pt had ex lap about 10years ago at [facility] with small bowel resection due to inflammation ?crohn's due to pt. Pt currently not on any medication for crohn's.? Pt states he was in [place] [facility] about [facility] years including time around the surgery and he did go see a doctor regularly but he is unable to tell me exactly what type of doctor he saw.? Pt states he noticed fairly soon after his surgery this bulge at umbilicus, pt has mild discomfort at the bulge, denies N/V [facility] Medical History (Updated 11/13/22 @ 23:[address] Yeny Hairston MD) Anger Anxiety Arthritis Bipolar 1 disorder Crohn disease Depression Diastasis recti High cholesterol History of steroid therapy Injury of back Non-smoker Right carpal tunnel syndrome Schizophrenia Wears glasses Home Medications omeprazole 20 mg tablet,delayed release 20 mg PO PRN PRN GERD 06/11/22 [History Last Taken Unknown] cholecalciferol (vitamin D3) 25 mcg (1,000 unit) capsule (Vitamin D3) 25 mcg PO DAILY 07/01/22 [History Last Taken 12/16/22 06:00] multivitamin 1 tab PO DAILY 07/01/22 [History Last Taken 12/16/22 06:00] acetaminophen 325 mg capsule (Tylenol) 325 mg PO ONCE PRN Pain 08/11/22 [History Last Taken 12/16/22 06:00] meloxicam 7.5 mg tablet 15 mg PO DAILY post op discomfort 11/13/22 [History Last Taken Unknown] quetiapine 25 mg tablet 25 mg PO QHS 11/13/22 [History Last Taken Unknown] Allergy/AdvReac Type Severity Reaction Status Date / Time Penicillins [PCN] Allergy Other Verified 12/17/22 06:15 Family History Mother Asthma Cancer Father Hypertension Ulcer Brother Diabetes Surgical History (Updated 12/10/22 @ 13:23 by Daja Bird) History of carpal tunnel release (~2021) History of carpal tunnel surgery of right wrist History of colonoscopy (~2015) History of colonoscopy (~2012) History of resection of small bowel Social History Smoking Status: Never smoker Vital Signs Vital Signs Vital Signs: 12/17/22 06:18 12/17/22 06:19 Temperature 98.2 F Temperature Source Temporal Pulse Rate 84 Respiratory Rate 18 Respiratory Pattern Normal Blood Pressure 124/68 H Blood Pressure Mean 86 Blood Pressure Source Monitor Blood Pressure Position Supine Blood Pressure Location Left Arm Pulse Ox 98 Oxygen Delivery Method Room Air Weight Weight: 179 lb Body Mass Index (BMI) 27.2 Physical Exam Const alert, oriented x3 and no apparent distress HEENT normocephalic and head/scalp atraumatic Resp normal respiratory effort Cardio regular rate GI soft to palpation and non-tender; Negative for non-distended GI Narrative: Incisional hernia at umbilicus, easily reducible Palpation: Negative for guarding Extremity no clubbing, cyanosis or edema Neuro CN's II-XII intact bilaterally Psych mental status grossly normal Assessment & Plan Assessment/Plan (1) Incisional hernia: (2) Diastasis recti: PLAN: Plan Plan to do an incisional hernia repair with mesh. Reviewed the procedure with the patient including the risks, including but not limited to infection, bleeding, paresthesia, injury to small bowel and recurrence. All questions were answered. 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 Yeny Hairston M.D. Pager: [phone] [facility] [address] [place] [address], [facility], [address] [place] [address] Office: [phone] 12/17/22 0715 <Electronically signed by Yeny Hairston MD> Cosigner Signature (if applicable): CC: Dr. Luis Goyal MD; Dr. Yeny Hairston MD~ Signed ADDENDUM by Dr. Yeny Hairston MD on 12/17/22 at 0716 HPI HPI Narrative: 52-year-old male presents for incisional hernia repair with mesh. Patient states is still reducible currently denies any pain at the site. Has been eating well with denies any nausea or vomiting. 12/17/22 0716<Electronically signed by Yeny Hairston MD> Cosigner Signature (if applicable): cc: Dr. Luis Goyal MD; Dr. Yeny Hairston MD ~* Signed [facility] Work Phone: 1(181) 395-403003-09-2023 Procedure [facility] 12-02-2022 [facility]09-25-2022 Miscellaneous Notes* Telephone Encounter - Alexandru Renteria MA - 07/05/2022 11:40 AM EDT Verified results with pt. Pt verbalized understanding. Alexandru Renteria MA * Telephone Encounter - Lawanda Amos APRN.CNP - 07/05/2022 10:29 AM EDT Please notify that lab test negative for herpes/shingles. Continued with plan as discussed during visit. documented in this encounterA[facility]a [facility] NoteHNO ID: [id number] Author: Kp Armstrong MD Service: ? Author Type: Physician Type: [...] relapsing infection, contagiousness, and treatment discussed. Kp Armstrong, [facility] HospitalEvaluation noteNo assessment information availableWThe [facility] Work Phone: Evaluation note* Diagnosis Onset Date Resolution Status Carpal tunnel syndrome on both sides acute [facility] Work Phone: Evaluation note* Diagnosis Onset Date Resolution Status Carpal tunnel syndrome on both sides acute Right carpal tunnel syndrome acute Carpal tunnel syndrome on both sides acute [facility] Work Phone: Evaluation note* Diagnosis Onset Date Resolution Status Right carpal tunnel syndrome acute Carpal tunnel syndrome on both sides acute Carpal tunnel syndrome on both sides acute Right carpal tunnel syndrome acute [facility] Work Phone: Evaluation note* Diagnosis Onset Date Resolution Status Right carpal tunnel syndrome acute Carpal tunnel syndrome on both sides acute Carpal tunnel syndrome on both sides acute Right carpal tunnel syndrome acute Carpal tunnel syndrome on both sides acute Carpal tunnel syndrome on both sides acute Right carpal tunnel syndrome acute [facility] Work Phone: Evaluation note* Diagnosis Onset Date Resolution Status Right carpal tunnel syndrome acute Carpal tunnel syndrome on both sides acute Carpal tunnel syndrome on both sides acute Right carpal tunnel syndrome acute Diastasis recti acute Incisional hernia acute [facility] Work Phone: Evaluation note* Diagnosis Onset Date Resolution Status Carpal tunnel syndrome on both sides acute Carpal tunnel syndrome on both sides acute Right carpal tunnel syndrome acute Diastasis recti acute Incisional hernia acute Diastasis recti acute Incisional hernia acute [facility] Work Phone: Hospital Discharge instructions Additional Instructions You will wear your cock up wrist splint at nighttime. Use anti-inflammatories as needed.[facility] Work Phone: Hospital Discharge instructionsWThe [facility] Work Phone: Hospital Discharge instructions Additional Instructions Plenty of fluids and rest. Alternate Tylenol Motrin for fever and bodyaches. Follow-up with your doctor if not improving. Your COVID and flu test were both negative. Your chest x-ray showed no signs of pneumonia.[facility] Work Phone: Reason for referral (narrative)No reason for referral information availableWThe [facility] Work Phone: Chief Complaint and Reason for Visit Chief Complaint N/T IN RIGHT HAND Chief Complaint N/T IN RIGHT HAND RIGHT WRIST Reason for Visit Carpal tunnel syndro me on both sides Chief Complaint N/T IN RIGHT HAND RIGHT WRIST Bilat wrist RT CARPAL TUNNEL RELEASE RT CARPAL TUNNEL RELEASE Reason for Visit Carpal tunnel syndro me on both sides Right carpal tunnel syndrome Carpal tunnel syndrome on both sides Chief Complaint Bilat wrist RT CARPAL TUNNEL RELEASE RT CARPAL TUNNEL RELEASE RIGHT WRIST RIGHT WRIST Reason for Visit Right carpal tunnel syndrome Carpal tunnel syndrome on both sides Carpal tunnel syndrome on both sides Right carpal tunnel syndrome Chief Complaint Bilat wrist RT CARPAL TUNNEL RELEASE RT CARPAL TUNNEL RELEASE RIGHT WRIST RIGHT WRIST RIGHT WRIST E ORDER RIGHT WRIST RIGHT WRIST Reason for Visit Right carpal tunnel syndrome Carpal tunnel syndrome on both sides Carpal tunnel syndrome on both sides Right carpal tunnel syndrome Carpal tunnel syndrome on both sides Carpal tunnel syndrome on both sides Right carpal tunnel syndrome Chief Complaint RIGHT WRIST RIGHT WRIST E ORDER RIGHT WRIST RIGHT WRIST JOSHUA CARPAL TUNNEL/RX HERE UMBILICAL HERNIA RIGHT UPPER EXT S/P CTS Reason for Visit Right carpal tunnel syndrome Carpal tunnel syndrome on both sides Carpal tunnel syndrome on both sides Right carpal tunnel syndrome Diastasis recti Incisional hernia Chief Complaint RIGHT WRIST E ORDER RIGHT WRIST RIGHT WRIST JOSHUA CARPAL TUNNEL/RX HERE UMBILICAL HERNIA RIGHT UPPER EXT S/P CTS PREOP INCISIONAL HERNIA REPAIR INCISIONAL HERNIA REPAIR Reason for Visit Carpal tunnel syndro me on both sides Carpal tunnel syndrome on both sides Right carpal tunnel syndrome Diastasis recti Incisional hernia Diastasis recti Incisional hernia Chief Complaint ABD PAIN COLD SX Chief Complaint COLD SX LOWER BACK PAIN Chief Complaint COLD SX LOWER BACK PAIN BACK PAIN Chief Complaint Admit Date LACERATION September 07, 2024 7:57pm abd pain, n/v/d October 01, 2024 1:22pm LUMBAR SPINE November 02, 2024 3 :30pm room 4 November 02, 2024 3 :53pm CROHN'S November 16, 2024 3 :16pm E-ORDER November 17, 2024 1 0:13am Crohns flare up December 01, 2024 5:45pm INT ORDERS December 02, 2024 7:04am Test Result December 08, 2024 4:12pm Reason for Visit Admit Date Lumbar disc herniation November 02 3:30pm Lumbar radiculopathy November 02, 2024 3:30pm Diarrhea November 16, 2024 3 :16pm Abdominal pain November 16, 2024 3 :16pm Diarrhea November 23, 2024 12:26pm Heartburn November 23, 2024 12:26pm Crohn disease of ileum December 08 4:12pm Chief Complaint Admit Date abd pain, n/v/d October 01, 2024 1:22pm LUMBAR SPINE November 02, 2024 3 :30pm room 4 November 02, 2024 3 :53pm CROHN'S November 16, 2024 3 :16pm E-ORDER November 17, 2024 1 0:13am Crohns flare up December 01, 2024 5:45pm INT ORDERS December 02, 2024 7:04am Test Result December 08, 2024 4:12pm LUMBAR RADICULOPATHY, RX HERE January 10, 2025 5:30pm INT LAB ORDERS January 15, 2025 3:24 pm Chief Complaint Admit Date CROHN'S November 16, 2024 3 :16pm E-ORDER November 17, 2024 1 0:13am Crohns flare up December 01, 2024 5:45pm INT ORDERS December 02, 2024 7:04am Test Result December 08, 2024 4:12pm INT LAB ORDERS January 15, 2025 3:24 pm LUMBAR RADICULOPATHY, RX HERE February 12, 2 025 6:00pm 3 M FU March 01, 2025 4:23p m LUMBAR RAD March 06, 2025 3:26p m Reason for Visit Admit Date Diarrhea November 16, 2024 3 :16pm Abdominal pain November 16, 2024 3 :16pm Diarrhea November 23, 2024 12:26pm Heartburn November 23, 2024 12:26pm Crohn disease of ileum December 08 4:12pm Crohn disease March 01, 2025 4:23p m Chief Complaint Admit Date Crohns flare up December 01, 2024 5:45pm INT ORDERS December 02, 2024 7:04am Test Result December 08, 2024 4:12pm INT LAB ORDERS January 15, 2025 3:24 pm LUMBAR RADICULOPATHY, RX HERE February 12, 2 025 6:00pm 3 M FU March 01, 2025 4:23p m LUMBAR RAD March 06, 2025 3:26p m LUMBAR SPINE March 22, 2025 3:39 pm Reason for Visit Admit Date Diarrhea November 23, 2024 12:26pm Heartburn November 23, 2024 12:26pm Crohn disease of ileum December 08 4:12pm Crohn disease March 01, 2025 4:23p m Chief Complaint Admit Date LUMBAR RADICULOPATHY, RX HERE February 12, 2 025 6:00pm 3 M FU March 01, 2025 4:23p m LUMBAR RAD March 06, 2025 3:26p m LUMBAR SPINE March 22, 2025 3:39 pm black stool, no appetite, dizzy, nausea May 22, 2025 1:37pm INT LAB ORDERS May 22, 2025 1: 55pm Reason for Visit Admit Date Crohn disease March 01, 2025 4:23p m Lumbar disc herniation March 22, 2025 3 :39pm Lumbar radiculopathy March 22, 2025 3:3 9pm Crohn disease May 22, 2025 1: 37pm Chief Complaint Admit Date 3 M FU March 01, 2025 4:23p m LUMBAR RAD March 06, 2025 3:26p m LUMBAR SPINE March 22, 2025 3:39 pm black stool, no appetite, dizzy, nausea May 22, 2025 1:37pm INT LAB ORDERS May 22, 2025 1: 55pm Chief Complaint Admit Date LUMBAR SPINE March 22, 2025 3:39 pm black stool, no appetite, dizzy, nausea May 22, 2025 1:37pm INT LAB ORDERS May 22, 2025 1: 55pm Medication Follow Up July 12, 2025 3 :23pm Reason for Visit Admit Date Lumbar disc herniation March 22, 2025 3 :39pm Lumbar radiculopathy March 22, 2025 3:3 9pm Crohn disease May 22, 2025 1: 37pm Crohn disease July 12, 2025 3: 23pm Crohn disease of ileum July 12, 2025 3:23pm Advance Directives No Advanced Directives Records Found Advance Directive Response Recorded Date/ Time Living Will No March 22, 2022 1:05pm Power of Forensic Social Worker No March 22 1:05pm Advance Directive Response Recorded Date/ Time Living Will No July 01, 2022 3:36pm Power of Forensic Social Worker No June 3:36pm Advance Directive Response Recorded Date/ Time Living Will No July 01, 2022 2:36pm Power of Forensic Social Worker No June 2:36pm Advance Directive Response Recorded Date/ Time Living Will No September 25, 2 022 10:40am Power of Forensic Social Worker No September 25, 2022 10:40am Advance Directive Response Recorded Date/ Time Living Will No September 08, 2 023 12:36pm Power of Forensic Social Worker No September 08, 2023 12:36pm Advance Directive Response Recorded Date/ Time Living Will No December 20, 2023 9:41pm Power of Forensic Social Worker No December 19 9:41pm Advance Directive Response Recorded Date/ Time Living Will No September 07, 2 024 9:43pm Power of Forensic Social Worker No September 07, 2024 9:43pm Living Will No October 01, 2 024 1:45pm Power of Forensic Social Worker No October 01, 2024 1:45pm Living Will No November 21, 2 025 2:09pm Power of Forensic Social Worker No November 21, 2024 2:09pm Advance Directive Response Recorded Date/ Time Living Will No October 01, 2 024 2:45pm Do you have a Healthcare Power of Forensic Social Worker? No October 01, 2024 2:45pm Living Will No November 21, 2 025 3:09pm Do you have a Healthcare Power of Forensic Social Worker? No November 21, 2024 3:09pm Advance Directive Response Recorded Date/ Time Living Will No November 21, 025 3:09pm Do you have a Healthcare Power of Forensic Social Worker? No November 21, 2024 3:09pm Summary Purpose Family History No Family History Records Found Relationship Condition Age at Onset Recorded Date/T bony mother Asthma Unknown Malignant neoplasm Unknown father Hypertension Unknown Ulcerative lesion Unknown brother Diabetes mellitus Unknown Additional Source Comments Goals (unrecognized section and content) Goals may be documented in a n alternate sectionGoals may be documented in an alternate sectionGoals may be documented in an alternate sectionGoals may be documented in an alternate sectionGoals may be documented in an alternate sectionGoals may be documented in an alternate sectionGoals may be documented in an alternate sectionGoals may be documented in an alternate sectionGoals may be documented in an alternate sectionGoals may be documented in an alternate section Source Comments (unrecognize d section and content) In the event this informatio n is protected by the Federal Confidentiality of Alcohol and Drug Abuse Patient Records regulations: The Federal rules restrict any use of the information to criminally investigate or prosecute any alcohol or drug abuse patient.[facility] Reason for Visit (unrecogniz ed section and content) Reason Comments Results (unrecognized sect ion and content) No Status Records FoundNo Status Records Found INFORMATION SOURCE (unrecogn ized section and content) DATE CREATED AUTHOR 07/13/2022 [facility] DATE CREATED AUTHOR AUTHOR'S ORGANIZ ATION 07/16/2025 [facility] Care Teams (unrecognized sec tion and content) Team Status: Active Member Role Status Dates Dr. Luis Goyal MD Primary Care Provider Activ e Team Status: Inactive Member Role Status Dates Dr. Luis Goyal MD Primary Care Provider, Refe rring Provider Active Ernst Ba MD Attending Provider Active Team Status: Inactive Member Role Status Dates Dr. Luis Goyal MD Primary Care Provider, Refe rring Provider Active Dr. Yeny Hairston MD Attending Provider Active Team Status: Inactive Member Role Status Dates Dr. Luis Goyal MD Primary Care Provider Activ e Dr. Ankur Johnson MD Attending Provider, Referring Pr ovider Active Team Status: Inactive Member Role Status Dates Dr. Luis Goyal MD Primary Care Provider Activ e Ernst Ba MD Attending Provider, Referring Prov ider Active Team Status: Active Member Role Status Dates Dr. Luis Goyal MD Primary Care Provider Activ e Ernst Ba MD Attending Provider, Referring Prov ider Active Team Status: Active Member Role Status Dates Dr. Luis Goyal MD Primary Care Provider Activ e Dr. Ankur Albarran MD Attending Provider Active Dr. Yeny Hairston MD Referring Provider Active Team Status: Active Member Role Status Dates Dr. Luis Goyal MD Primary Care Provider Activ e Dr. Yeny Hairston MD Attending Provi david, Referring Provider, Other Provider Active Team Status: Inactive Member Role Status Dates Dr. Luis Goyal MD Primary Care Provider Activ e Dr. Yeny Hairston MD Attending Provider, Referring Provider Active Team Status: Inactive Member Role Status Dates Dr. Luis Goyal MD Primary Care Provider Activ e Dr. Lion Chen MD Attending Provider, Emergency Provider Active Team Status: Inactive Member Role Status Dates Dr. Luis Goyal MD Primary Care Provider Activ e Dr. Sang Sweeney MD Emergency Provider Active Team Status: Inactive Member Role Status Dates Dr. Luis Goyal MD Primary Care Provider Activ e Dr. Sang Sweeney MD Attending Provider, Emergency Pro vider Active Team Status: Inactive Member Role Status Dates Dr. Luis Goyal MD Primary Care Provider Activ e Dr. Claudine Winkler MD Emergency Provider Active Team Status: Inactive Member Role Status Dates Dr. Luis Goyal MD Primary Care Provider Activ e Dr. Claudine Winkler MD Attending Provider, Emergency Provider Active Team Status: Inactive Member Role Status Dates Dr. Luis Goyal MD Primary Care Provider, Attending Provider, Referring Provider Active Team Status: Active Member Role Status Dates Magda Yarbrough MD Primary Care Provider Active Team Status: Inactive Member Role Status Dates Magda Yarbrough MD Primary Care Provider Active St art: September 07, 2024 End: September 07, 2024 Dr. Raffaele Webb DO Attending Provider Activ e Start: September 07, 2024 End: September 07, 2024 Dr. Raffaele Webb , Emergency Provider Activ e Start: September 07, 2024 End: September 07, 2024 Team Status: Inactive Member Role Status Rafita Yarbrough MD Primary Care Provider Active St art: October 01, 2024 End: October 01, 2024 Dr. Saqib Kuhn DO Attending Provider Active Start: October 01, 2024 End: October 01, 2024 Dr. Saqib Kuhn , Emergency Provider Active Start: October 01, 2024 End: October 01, 2024 Team Status: Inactive Member Role Status Rafita Yarbrough MD Primary Care Provider Active St art: November 02, 2024 End: November 02, 2024 Magda Yarbrough MD Referring Provider Active Start : November 02, 2024 End: November 02, 2024 Dr. Chris Adair MD Attending Provider Active Start: November 02, 2024 End: November 02, 2024 Team Status: Inactive Member Role Status Rafita Yarbrough MD Primary Care Provider Active St art: November 02, 2024 End: November 02, 2024 Dr. Saran Garcia MD Attending Provider Active S tart: November 02, 2024 End: November 02, 2024 Team Status: Inactive Member Role Status Rafita Yarbrough MD Primary Care Provider Active St art: November 16, 2024 End: November 16, 2024 Magda Yarbrough MD Referring Provider Active Start : November 16, 2024 End: November 16, 2024 CINDY Jimenez Attending Provider Active Start: November 16, 2024 End: November 16, 2024 Team Status: Inactive Member Role Status Rafita Yarbrough MD Primary Care Provider Active St art: November 16, 2024 End: November 16, 2024 CINDY Jimenez Attending Provider Active Start: November 16, 2024 End: November 16, 2024 CINDY Jimenez Referring Provider Active Start: November 16, 2024 End: November 16, 2024 Team Status: Inactive Member Role Status Rafita Yarbrough MD Primary Care Provider Active St art: November 17, 2024 End: November 17, 2024 CINDY Jimenez Attending Provider Active Start: November 17, 2024 End: November 17, 2024 CINDY Jimenez Referring Provider Active Start: November 17, 2024 End: November 17, 2024 Team Status: Inactive Member Role Status Rafita Yarbrough MD Primary Care Provider Active St art: November 23, 2024 End: November 23, 2024 Magda Yarbrough MD Referring Provider Active Start : November 23, 2024 End: November 23, 2024 Dr. Axel Nevarez DO Attending Provider Active Start: November 23, 2024 End: November 23, 2024 Team Status: Active Member Role Status Rafita Yarbrough MD Primary Care Provider Active St art: November 23, 2024 Magda Yarbrough MD Referring Provider Active Start : November 23, 2024 Dr. Axel Nevarez DO Attending Provider Active Start: November 23, 2024 Dr. Axel Nevarez DO Other Provider Active St art: November 23, 2024 Team Status: Inactive Member Role Status Rafita Yarbrough MD Primary Care Provider Active St art: December 01, 2024 End: December 01, 2024 Magda Yarbrough MD Attending Provider Active Start : December 01, 2024 End: December 01, 2024 Magda Yarbrough MD Referring Provider Active Start : December 01, 2024 End: December 01, 2024 Team Status: Inactive Member Role Status Rafita Yarbrough MD Primary Care Provider Active St art: December 02, 2024 End: December 02, 2024 CINDY Jimenez Attending Provider Active Start: December 02, 2024 End: December 02, 2024 CINDY Jimenez Referring Provider Active Start: December 02, 2024 End: December 02, 2024 Team Status: Inactive Member Role Status Rafita Yarbrough MD Primary Care Provider Active St art: December 08, 2024 End: December 08, 2024 Magda Yarbrough MD Referring Provider Active Start : December 08, 2024 End: December 08, 2024 CINDY Jimenez Attending Provider Active Start: December 08, 2024 End: December 08, 2024 Team Status: Active Member Role Status Rafita Yarbrough MD Primary Care Provider Active St art: January 10, 2025 Dr. Chris Adair MD Attending Provider Active Start: January 10, 2025 Dr. Chris Adair MD Referring Provider Active Start: January 10, 2025 Team Status: Inactive Member Role Status Rafita Yarbrough MD Primary Care Provider Active St art: January 15, 2025 End: January 15, 2025 CINDY Jimenez Attending Provider Active Start: January 15, 2025 End: January 15, 2025 CINDY Jimenez Referring Provider Active Start: January 15, 2025 End: January 15, 2025 Team Status: Active Member Role Status Rafita Yarbrough MD Primary Care Provider Active St art: February 12, 2025 Dr. Chris Adair MD Attending Provider Active Start: February 12, 2025 Dr. Chris Adair MD Referring Provider Active Start: February 12, 2025 Team Status: Inactive Member Role Status Rafita Yarbrough MD Primary Care Provider Active St art: March 01, 2025 End: March 01, 2025 Magda Yarbrough MD Referring Provider Active Start : March 01, 2025 End: March 01, 2025 CINDY Jimenez Attending Provider Active Start: March 01, 2025 End: March 01, 2025 Team Status: Inactive Member Role Status Rafita Yarbrough MD Primary Care Provider Active St art: March 06, 2025 End: March 06, 2025 Dr. Adilson Enciso MD Attending Provider Active Start: March 06, 2025 End: March 06, 2025 Dr. Adilson Enciso MD Referring Provider Active Start: March 06, 2025 End: March 06, 2025 Team Status: Inactive Member Role Status Rafita Yarbrough MD Primary Care Provider Active St art: March 22, 2025 End: March 22, 2025 Magda Yabrrough MD Referring Provider Active Start : March 22, 2025 End: March 22, 2025 CINDY Ramon Attending Provider Active Star t: March 22, 2025 End: March 22, 2025 Team Status: Active Member Role/Relationship Status Rafita Yarbrough MD Primary Care Provider Active Team Status: Active Member Role/Relationship Status Rafita Yarbrough MD Primary Care Provider Active St art: February 12, 2025 Dr. Chris Adair MD Attending Provider Active Start: February 12, 2025 Dr. Chris Adair MD Referring Provider Active Start: February 12, 2025 Team Status: Inactive Member Role/Relationship Status Rafita Yarbrough MD Primary Care Provider Active St art: March 01, 2025 End: March 01, 2025 Magda Yarbrough MD Referring Provider Active Start : March 01, 2025 End: March 01, 2025 CINDY Jimenez Attending Provider Active Start: March 01, 2025 End: March 01, 2025 Team Status: Inactive Member Role/Relationship Status Rafita Yarbrough MD Primary Care Provider Active St art: March 06, 2025 End: March 06, 2025 Dr. Adilson Enciso MD Attending Provider Active Start: March 06, 2025 End: March 06, 2025 Dr. Adilson Enciso MD Referring Provider Active Start: March 06, 2025 End: March 06, 2025 Team Status: Inactive Member Role/Relationship Status Rafita Yarbrough MD Primary Care Provider Active St art: March 22, 2025 End: March 22, 2025 Magda Yarbrough MD Referring Provider Active Start : March 22, 2025 End: March 22, 2025 CINDY Ramon Attending Provider Active Star t: March 22, 2025 End: March 22, 2025 Team Status: Inactive Member Role/Relationship Status Rafita Yarbrough MD Primary Care Provider Active St art: May 22, 2025 End: May 22, 2025 Magda Yarbrough MD Referring Provider Active Start : May 22, 2025 End: May 22, 2025 CINDY Jimenez Attending Provider Active Start: May 22, 2025 End: May 22, 2025 Team Status: Active Member Role/Relationship Status Rafita Yarbrough MD Primary Care Provider Active St art: May 22, 2025 CINDY Jimenez Attending Provider Active Start: May 22, 2025 CINDY Jimenez Referring Provider Active Start: May 22, 2025 Team Status: Inactive Member Role/Relationship Status Rafita Yarbrough MD Primary Care Provider Active St art: May 22, 2025 End: May 22, 2025 CINDY Jimenez Attending Provider Active Start: May 22, 2025 End: May 22, 2025 CINDY Jimenez Referring Provider Active Start: May 22, 2025 End: May 22, 2025 Team Status: Inactive Member Role/Relationship Status Rafita Yarbrough MD Primary Care Provider Active St art: March 01, 2025 End: March 01, 2025 Magda Yarbrough MD Referring Provider Active Start : March 01, 2025 End: March 01, 2025 CINDY Jimenez Attending Provider Active Start: March 01, 2025 End: March 01, 2025 Team Status: Inactive Member Role/Relationship Status Rafita Yarbrough MD Primary Care Provider Active St art: March 06, 2025 End: March 06, 2025 Dr. Adilson Enciso MD Attending Provider Active Start: March 06, 2025 End: March 06, 2025 Dr. Adilson Enciso MD Referring Provider Active Start: March 06, 2025 End: March 06, 2025 Team Status: Inactive Member Role/Relationship Status Rafita Yarbrough MD Primary Care Provider Active St art: March 22, 2025 End: March 22, 2025 Magda Yarbrough MD Referring Provider Active Start : March 22, 2025 End: March 22, 2025 CINDY Ramon Attending Provider Active Star t: March 22, 2025 End: March 22, 2025 Team Status: Inactive Member Role/Relationship Status Rafita Yarbrough MD Primary Care Provider Active St art: May 22, 2025 End: May 22, 2025 Magda Yarbrough MD Referring Provider Active Start : May 22, 2025 End: May 22, 2025 CINDY Jimenez Attending Provider Active Start: May 22, 2025 End: May 22, 2025 Team Status: Inactive Member Role/Relationship Status Rafita Yarbrough MD Primary Care Provider Active St art: May 22, 2025 End: May 22, 2025 CINDY Jimenez Attending Provider Active Start: May 22, 2025 End: May 22, 2025 CINDY Jimenez Referring Provider Active Start: May 22, 2025 End: May 22, 2025 Team Status: Active Member Role/Relationship Status Rafita Yarbrough MD Primary care physician Active Team Status: Inactive Member Role/Relationship Status Rafita Yarbrough MD Primary care physician Active S tart: March 22, 2025 End: March 22, 2025 Magda Yarbrough MD Referring Provider Active Start : March 22, 2025 End: March 22, 2025 CINDY Ramon Attending physician Active Sta rt: March 22, 2025 End: March 22, 2025 Team Status: Inactive Member Role/Relationship Status Rafita Yarbrough MD Primary care physician Active S tart: May 22, 2025 End: May 22, 2025 Magda Yarbrough MD Referring Provider Active Start : May 22, 2025 End: May 22, 2025 CINDY Jimenez Attending physician Active Start: May 22, 2025 End: May 22, 2025 Team Status: Inactive Member Role/Relationship Status Rafita Yarbrough MD Primary care physician Active S tart: May 22, 2025 End: May 22, 2025 CINDY Jimenez Attending physician Active Start: May 22, 2025 End: May 22, 2025 CINDY Jimenez Referring Provider Active Start: May 22, 2025 End: May 22, 2025 Team Status: Inactive Member Role/Relationship Status Rafita Yarbrough MD Primary care physician Active S tart: July 12, 2025 End: July 12, 2025 Magda Yarbrough MD Referring Provider Active Start : July 12, 2025 End: July 12, 2025 CINDY Jimenez Attending physician Active Start: July 12, 2025 End: July 12, 2025 FOR RECORDS PERTAINING TO PATIENTS WHO ARE [...] BE BASED ON THE PRIMARY CLINICAL RECORDS. [facility] [employer] [facility]. provides no warranty or guarantee of the accuracy or completeness of information in this document.
[2025-09-11 15:08] LABS: Calprotectin, Stool 95 ug/g (0-120)
== END | disposition home or self-care (01) ==
LOC: LABSPEC 10:13
PROVIDERS: PCP Family Medicine; Referring Provider Student in an Organized Health Care Education/Training Program; Visit Provider Student in an Organized Health Care Education/Training Program
DX: K50.00 Crohn's disease of small intestine without complications (principal)
CPT/HCPCS: 83993